=== PATIENT | female | born 1990 | race Caucasian/White ===

== ENCOUNTER → 2016-08-15 | Outpatient (CLI) | payer SELFPAY ==
[~2016-08-15] MED LIST: FLUO40CA8 PO
[2016-08-15 16:32] LABS: URINE APPEARANCE CLEAR (CLEAR); URINE BILIRUBIN NEG (NEG); URINE COLOR YELLOW; URINE NITRITE NEG (NEG); URINE PH 5.5 (4.5-7.5); URINE SPECIFIC GRAVITY 1.023 (1.000-1.030); UROBILINOGEN NEG (NEG)
[2016-08-15 16:46] LABS: MANUAL MICROSCOPIC REQUIRED? NO; REVIEW REQ? NO
== END | disposition home or self-care (01) ==
LOC: C.LABSPEC 15:53
PROVIDERS: ATTEND Obstetrics & Gynecology
DX: O09.299 Supervision of pregnancy with other poor reproductive or obstetric history, unspecified trimester (principal); Z3A.00 Weeks of gestation of pregnancy not specified

== ENCOUNTER → 2016-08-17 | Outpatient (CLI) | payer OTHER | END | disposition home or self-care (01) | LOC: C.PAPS 13:42 | PROVIDERS: ATTEND Obstetrics & Gynecology | DX: Z12.4 Encounter for screening for malignant neoplasm of cervix (principal); R87.610 Atypical squamous cells of undetermined significance on cytologic smear of cervix (ASC-US) ==

== ENCOUNTER → 2016-08-17 | Outpatient (CLI) | payer OTHER ==
[2016-08-17 12:04] LABS: BASO % 0.2 %; BASO ABS # 0.02 K/uL (0-0.2); COMPLETE YES; EOS % 0.5 %; HEMATOCRIT 43.1 % (37-47); IG% 0.3 %; LYMPH % 18.5 %; LYMPH ABS # 2.03 K/uL (1.2-3.4); MEAN CELL VOLUME 86.9 fL (80-100); MEAN CORPUSCULAR HEMOGLOBIN 28.8 pg (25-34); MEAN CORPUSCULAR HGB CONC 33.2 g/dl (32-36); MEAN PLATELET VOLUME 9.8 fL (7.4-10.4); MONO % 6.7 %; NEUT % 73.8 %; PLATELET COUNT 318 K/uL (130-400); RED BLOOD COUNT 4.96 M/uL (4.2-5.4); WHITE BLOOD COUNT 10.99 K/uL (4.8-10.8)
[2016-08-20 06:59] LABS: CHLAMYDIA TRACH RNA*** DETECTED (NOT DETECTED); GC (NEIS GONORRHOEAE)RNA** NOT DETECTED (NOT DETECTED)
== END | disposition home or self-care (01) ==
LOC: C.LAB1850 10:24
PROVIDERS: ATTEND Obstetrics & Gynecology
DX: Z34.90 Encounter for supervision of normal pregnancy, unspecified, unspecified trimester (principal)

== ENCOUNTER → 2016-10-26 | Outpatient (CLI) | payer OTHER ==
[2016-10-26 13:09] LABS: GTGD 50 Grams
== END | disposition home or self-care (01) ==
LOC: C.LAB1850 09:42
PROVIDERS: ATTEND Obstetrics & Gynecology
DX: Z34.02 Encounter for supervision of normal first pregnancy, second trimester (principal)

== ENCOUNTER → 2016-10-26 | Outpatient (CLI) | payer OTHER ==
[2016-10-29 08:03] LABS: CHLAMYDIA TRACH RNA*** NOT DETECTED (NOT DETECTED); GC (NEIS GONORRHOEAE)RNA** NOT DETECTED (NOT DETECTED)
== END | disposition home or self-care (01) ==
LOC: C.LABSPEC 10:59
PROVIDERS: ATTEND Obstetrics & Gynecology
DX: O98.819 Other maternal infectious and parasitic diseases complicating pregnancy, unspecified trimester (principal); Z3A.00 Weeks of gestation of pregnancy not specified

== ENCOUNTER 2016-12-09 01:05 | Emergency (ER) | payer OTHER ==
[~2016-12-09] VITALS: Ht 162.6 cm; Wt 103.5 kg
[2016-12-09 01:19] VITALS: Ht 162.6 cm; Wt 103.5 kg
[2016-12-09] MEDS ORDERED: SODIUM CHLORIDE 0.9% 1000ML 1,000 ML IV STA (01:40)
[2016-12-09] MEDS ORDERED: PRENTAB26 PO (01:54)
[2016-12-09 02:05] LABS: BASO % 0.2 %; BASO ABS # 0.02 K/uL (0-0.2); COMPLETE YES; EOS % 0.6 %; HEMATOCRIT 32.6 % (37-47); IG% 0.5 %; LYMPH % 19.4 %; LYMPH ABS # 2.47 K/uL (1.2-3.4); MEAN CELL VOLUME 85.6 fL (80-100); MEAN CORPUSCULAR HEMOGLOBIN 29.1 pg (25-34); MEAN PLATELET VOLUME 9.2 fL (7.4-10.4); MONO % 6.5 %; NEUT % 72.8 %; PLATELET COUNT 261 K/uL (130-400); RED BLOOD COUNT 3.81 M/uL (4.2-5.4); WHITE BLOOD COUNT 12.71 K/uL (4.8-10.8)
[2016-12-09] MEDS ORDERED: ONDANSETRON INJ 2 MG/ML 2 ML VIAL IV STA (02:26)
[2016-12-09] MEDS ORDERED: ACETAMINOPHEN IV 100 ML IV STA (02:26)
[2016-12-09 02:29] LABS: ALB/GLOB RATIO 0.7 (0.9-2); ALKALINE PHOSPHATASE 91 U/L (45-117); ALT/SGPT 24 U/L (12-78); AST/SGOT 22 U/L (15-37); BLOOD UREA NITROGEN 7 mg/dl (7-18); BUN/CREATININE RATIO 12.8 (10-20); CALCIUM 9.1 mg/dl (8.5-10.1); CARBON DIOXIDE 22 mmol/L (21-32); CHLORIDE 107 mmol/L (98-107); CREATININE 0.53 mg/dl (0.60-1.20); GLUCOSE 89 mg/dl (70-99); POTASSIUM 3.8 mmol/L (3.5-5.1); SODIUM 139 mmol/L (136-145)
--- NOTE | 2016-12-09 04:00 | EMERGENCY ROOM VISIT NOTE ---
History First contact with patient: :31 Chief Complaint: ABDOMINAL PAIN Stated Complaint: 23 WKS PREG,L/D SAID RUN THRU ER, ABD PAIN Nursing Triage Summary: pt c/o abd pain started at midnight, pain comes and goes, pt had previous miscarraige at 10 weeks. pt is 23 weeks now. spoke with L&D and was told Dr London wanted her to be seen in the ER first History of Present Illness The patient is a 26 year old female who presents to the Emergency Room with complaints of left-sided abdominal pain that woke her up around midnight. She states the pain has been a constant dull ache, with intermittent sharp crampy pains that come and go, nothing makes them better or worse, 08/27. She did not take anything for the pain. Patient reports she is 23 weeks , and has had an uncomplicated so far. She does report a history of a miscarriage at 10 weeks in the past. She is . She denies any fevers, chills, chest pain, shortness of breath, dizziness or passing out, diarrhea or constipation, urinary symptoms, vaginal bleeding or unusual discharge. Review of Systems A complete 10 point review of systems was reviewed with the patient with pertinent positives and negatives as per history of present illness. All else were negative. Past Medical/Surgical History Medical Problems: (1) ASTHMA, UNSPECIFIED (2) BIPOLAR DISORDER, UNSPECIFIED (3) Diverticulosis of colon without diverticulitis (4) ESOPHAGEAL REFLUX (5) HYPERTENSION NOS (6) Polycystic ovarian syndrome (7) POLYCYSTIC OVARIES (8) TOBACCO USE DISORDER (9) Tonsillectomy Surgical Problems: (1) History of tonsillectomy and adenoidectomy (2) History of wisdom tooth extraction Family History FH: heart disease Hypertension Seizures Social History Smoking Status: Never Smoker Alcohol Use: occasionally Marital Status: Occupation Status: employed Current/Historical Medications Scheduled Multivit/Min/Iron/Fol Ac/Pren ( Vitamin), 1 TAB PO DAILY Physical Exam Vital Signs Date Time Temp Pulse Resp B/P (MAP) Pulse Ox O2 Delivery O2 Flow Rate FiO2 12/09/16 04:03 36.6 95 18 110/59 98 12/09/16 04:02 95 18 110/59 98 Room Air 12/09/16 03:04 98 18 119/68 98 Room Air 12/09/16 01:59 Room Air 12/09/16 01:19 36.6 114 20 139/87 99 Room Air Physical Exam CONSTITUTIONAL: No acute distress. Well appearing and well nourished. Alert and oriented X 4 with normal affect. HEENT: Normocephalic, atraumatic. Pupils equal, round and reactive to light, EOMI. TMs normal. Pharynx normal. NECK: Supple, full active range of motion without discomfort. RESPIRATORY: Clear to auscultation bilaterally with no wheezing, crackles, rhonchi or stridor. Equal expansion bilaterally. CARDIOVASCULAR: Regular rate and rhythm with no murmurs, rubs or gallops. Normal peripheral perfusion. No edema. GASTROINTESTINAL: Mild tenderness in the suprapubic and left lower quadrant region to palpation, the abdomen is otherwise soft, nontender, nondistended. No CVA tenderness. Gravid abdomen. Bowel sounds present in all quadrants. MUSCULOSKELETAL: Full range of motion of all joints without discomfort. INTEGUMENTARY: No rash or other significant dermatologic conditions noted. NEUROLOGIC: Cranial nerves II-XII grossly intact. No focal neurologic deficits noted. Medical Decision & Procedures ER Provider Diagnostic Interpretation: LIMITED (US) CLINICAL HISTORY: Left-sided abdominal pain. . COMPARISON STUDY: 11/20/2016 FINDINGS: A single live fetus in variable presentation was identified. The heart rate is 157. The amniotic fluid was 12.7 cm. The femur measured 38 mm. The BPD measured 59 mm. These measurements correspond to an estimated postmenstrual age of 23 weeks and 0 days. Neither ovary was visualized. No maternal adnexal masses were delineated. There is a stable focal placental lobulation, unchanged from the preceding study. IMPRESSION: 1. Single live intrauterine fetus in their presentation 2. Stable focal placental lobulation 3. Neither maternal ovary was visualized. Laboratory Results 12/09/16 01:52 Red Blood Count 3.81, Mean Corpuscular Volume 85.6, Mean Corpuscular Hemoglobin 29.1, Mean Corpuscular Hemoglobin Concent 34.0, Mean Platelet Volume 9.2, Neutrophils (%) (Auto) 72.8, Lymphocytes (%) (Auto) 19.4, Monocytes (%) (Auto) 6.5, Eosinophils (%) (Auto) 0.6, Basophils (%) (Auto) 0.2, Neutrophils # (Auto) 9.27, Lymphocytes # (Auto) 2.47, Monocytes # (Auto) 0.82, Eosinophils # (Auto) 0.07, Basophils # (Auto) 0.02 12/09/16 01:52 Test 12/09/16 01:52 12/09/16 02:01 White Blood Count 12.71 K/uL (4.8-10.8) Red Blood Count 3.81 M/uL (4.2-5.4) Hemoglobin 11.1 g/dL (12.0-16.0) Hematocrit 32.6 % (37-47) Mean Corpuscular Volume 85.6 fL (80-100) Mean Corpuscular Hemoglobin 29.1 pg (25-34) Mean Corpuscular Hemoglobin Concent 34.0 g/dl (32-36) Platelet Count 261 K/uL (130-400) Mean Platelet Volume 9.2 fL (7.4-10.4) Neutrophils (%) (Auto) 72.8 % Lymphocytes (%) (Auto) 19.4 % Monocytes (%) (Auto) 6.5 % Eosinophils (%) (Auto) 0.6 % Basophils (%) (Auto) 0.2 % Neutrophils # (Auto) 9.27 K/uL (1.4-6.5) Lymphocytes # (Auto) 2.47 K/uL (1.2-3.4) Monocytes # (Auto) 0.82 K/uL (0.11-0.59) Eosinophils # (Auto) 0.07 K/uL (0-0.5) Basophils # (Auto) 0.02 K/uL (0-0.2) RDW Standard Deviation 41.6 fL (36.4-46.3) RDW Coefficient of Variation 13.5 % (11.5-14.5) Immature Granulocyte % (Auto) 0.5 % Immature Granulocyte # (Auto) 0.06 K/uL (0.00-0.02) Anion Gap 10.0 mmol/L (3-11) Est Creatinine Clear Calc Drug Dose 190.2 ml/min Estimated GFR () > 150.0 Estimated GFR (Non- 132.0 BUN/Creatinine Ratio 12.8 (10-20) Calcium Level 9.1 mg/dl (8.5-10.1) Total Bilirubin 0.1 mg/dl (0.2-1) Aspartate Amino Transf (AST/SGOT) 22 U/L (15-37) Alanine Aminotransferase (ALT/SGPT) 24 U/L (12-78) Alkaline Phosphatase 91 U/L (45-117) Total Protein 7.2 gm/dl (6.4-8.2) Albumin 2.9 gm/dl (3.4-5.0) Globulin 4.3 gm/dl (2.5-4.0) Albumin/Globulin Ratio 0.7 (0.9-2) Chemistry Specimen Hemolysis Urine Color YELLOW Urine Appearance CLOUDY (CLEAR) Urine pH 5.5 (4.5-7.5) Urine Specific [place] 1.022 (1.000-1.030) Urine Protein NEG (NEG) Urine Glucose (UA) NEG (NEG) Urine Ketones NEG (NEG) Urine Occult Blood 3+ (NEG) Urine Nitrite NEG (NEG) Urine Bilirubin NEG (NEG) Urine Urobilinogen NEG (NEG) Urine Leukocyte Esterase NEG (NEG) Urine WBC (Auto) 1-5 /hpf (0-5) Urine RBC (Auto) 10-30 /hpf (0-4) Urine Hyaline Casts (Auto) 1-5 /lpf (0-5) Urine Epithelial Cells (Auto) >30 /lpf (0-5) Urine Bacteria (Auto) 2+ (NEG) Urine Crystals CALCIUM OXALATE (NONE Date/Time Source Procedure Growth Status 12/09/16 02:01 Urine , Clean Catch Urine Culture - Final MORE THAN THREE TYPES OF ORGANISMS DE... Complete Medications Administered Medications (Trade) Dose Ordered Sig/Davon Route Start Time Stop Time Status Last Admin Dose Admin Sodium Chloride 1,000 ml @ 999 mls/hr Q1H1M STAT IV 12/09/16 01:40 12/09/16 02:40 DC 12/09/16 01:55 999 MLS/HR Acetaminophen 100 ml @ 400 mls/hr NOW STAT IV 12/09/16 02:26 12/09/16 02:40 DC 12/09/16 02:40 400 MLS/HR Ondansetron HCl (Zofran Inj) 4 mg NOW STAT IV 12/09/16 02:26 12/09/16 02:27 DC 12/09/16 02:40 4 MG Medical Decision CC: Patient presenting with complaint of abdominal pain in Interpretation of Labs: Mild leukocytosis, mild anemia, no significant loculated abnormality, normal renal function, normal liver enzymes and lipase, UA shows RBCs and some bacteria without any other signs of infection, culture pending. Differential Diagnosis: Includes, but not limited to have musculoskeletal pain, ligament pain in , [place] contractions, dehydration, preeclampsia, premature labor, ovarian cyst, ovarian torsion, placenta previa/ abruption, among others. Medication Reconciliation: I attest that I have personally reviewed the patient' s current medication list. Vital signs review: I reviewed the patient's vital signs and interpret them as follows: T: Afebrile; BP: Hypertensive; HR: Tachycardic; RR: Within normal limits; Pulse Ox: Within normal limits on room air. Blood pressure screening: The patient was found to have an elevated blood pressure and was felt to be situational, as this resolved on multiple rechecks. Summary: Patient was evaluated at bedside, history of physical exam performed. Patient is alert and in no acute distress, resting comfortably in the stretcher. She does have some mild tenderness in the suprapubic and left lower quadrant region of the abdomen, the abdomen is otherwise soft and nontender. No CVA tenderness. She denies any vaginal bleeding or urinary symptoms. Orders were placed at bedside for labs, UA and culture, IV fluids for hydration , IV Tylenol for pain, IV Zofran for nausea, pelvic ultrasound to evaluate . Patient discussed with Dr. Joe, who agrees with my assessment and plan. Patient reassessed multiple times throughout ED stay, she reports that her pain has improved definitely, but is still present at times. Labs reviewed as above, no significant abnormalities. Ultrasound reviewed, heart rate within normal limits, no acute abnormalities found. I discussed the patient with Dr. Sierra, OB, who agrees to bring the patient up to L&D for further evaluation. Patient was discharged from the emergency department to be taken up to the L&D floor for further monitoring and evaluation. Impression Primary Impression: Abdominal pain, left lower quadrant Additional Impression: and not yet delivered in second trimester Departure Information Dispostion Home / Self-Care Condition GOOD Referrals Barbara Taylor, C.R.N.P. (PCP) Patient Instructions My [facility] Additional Instructions You are being discharged from the emergency department and will be taken up to labor and delivery for further evaluation and monitoring of your . Problem Qualifiers
[2016-12-09 04:03] VITALS: BP 110/59; PULSE 95; TEMP 36.6; O2SAT 98
[2016-12-09 04:30] LABS: URINE APPEARANCE CLOUDY (CLEAR); URINE BILIRUBIN NEG (NEG); URINE COLOR YELLOW; URINE EPITHELIAL CELL AUTO >30 /lpf (0-5); URINE NITRITE NEG (NEG); URINE PH 5.5 (4.5-7.5); URINE SPECIFIC GRAVITY 1.022 (1.000-1.030); UROBILINOGEN NEG (NEG)
[2016-12-09 04:53] LABS: MANUAL MICROSCOPIC REQUIRED? NO; REVIEW REQ? YES
--- NOTE | 2016-12-09 07:52 | DIAGNOSTIC IMAGING REPORT ---
LIMITED (US) CLINICAL HISTORY: Left-sided abdominal pain. . COMPARISON STUDY: 11/20/2016 FINDINGS: A single live fetus in variable presentation was identified. The heart rate is 157. The amniotic fluid was 12.7 cm. The femur measured 38 mm. The BPD measured 59 mm. These measurements correspond to an estimated postmenstrual age of 23 weeks and 0 days. Neither ovary was visualized. No maternal adnexal masses were delineated. There is a stable focal placental lobulation, unchanged from the preceding study. IMPRESSION: 1. Single live intrauterine fetus in their presentation 2. Stable focal placental lobulation 3. Neither maternal ovary was visualized. Electronically signed by: Jamin Martin M.D. 12/09/2016 7:51 AM Dictated Date/Time: 12/09/2016 7:48 AM
== END 2016-12-09 04:04 | disposition home or self-care (01) ==
LOC: C.EDB 01:06 → C.EDA 04:04
DX: O26.892 Other specified pregnancy related conditions, second trimester (principal); R10.32 Left lower quadrant pain; Z3A.23 23 weeks gestation of pregnancy; O99.512 Diseases of the respiratory system complicating pregnancy, second trimester; J45.909 Unspecified asthma, uncomplicated; O99.342 Other mental disorders complicating pregnancy, second trimester; F31.9 Bipolar disorder, unspecified; O99.612 Diseases of the digestive system complicating pregnancy, second trimester; K21.9 Gastro-esophageal reflux disease without esophagitis; O10.012 Pre-existing essential hypertension complicating pregnancy, second trimester; O99.282 Endocrine, nutritional and metabolic diseases complicating pregnancy, second trimester; E28.2 Polycystic ovarian syndrome; Z82.49 Family history of ischemic heart disease and other diseases of the circulatory system

== ENCOUNTER 2017-01-12 23:45 | Outpatient (CLI) | payer OTHER ==
[~2017-01-12] VITALS: Ht 165.1 cm; Wt 105.0 kg
[~2017-01-12 23:45] MED LIST changes: -FLUO40CA8 PO; +PRENTAB26 PO
[2017-01-13 01:25] VITALS: Ht 165.1 cm; Wt 105.0 kg
== END 2017-01-13 00:45 | disposition home or self-care (01) ==
LOC: C.LD 23:45 → C.OPB 23:45
PROVIDERS: ATTEND Obstetrics & Gynecology
DX: O46.93 Antepartum hemorrhage, unspecified, third trimester (principal); Z3A.28 28 weeks gestation of pregnancy

== ENCOUNTER → 2017-01-15 | Outpatient (CLI) | payer OTHER ==
[2017-01-15 11:14] LABS: URINE APPEARANCE CLOUDY (CLEAR); URINE BILIRUBIN NEG (NEG); URINE COLOR DK YELLOW; URINE EPITHELIAL CELL AUTO >30 /lpf (0-5); URINE NITRITE NEG (NEG); URINE PH 6.5 (4.5-7.5); URINE SPECIFIC GRAVITY 1.018 (1.000-1.030); UROBILINOGEN NEG (NEG)
[2017-01-15 11:15] LABS: MANUAL MICROSCOPIC REQUIRED? NO; REVIEW REQ? YES
[2017-01-15 12:21] LABS: HEMATOCRIT 31.5 % (37-47)
[2017-01-15 13:32] LABS: GTGD 50 Grams
== END | disposition home or self-care (01) ==
LOC: C.LAB1850 10:06
PROVIDERS: ATTEND Obstetrics & Gynecology
DX: Z34.02 Encounter for supervision of normal first pregnancy, second trimester (principal)

== ENCOUNTER → 2017-01-29 | Outpatient (CLI) | payer OTHER | END | disposition home or self-care (01) | LOC: C.LAB1850 10:34 | PROVIDERS: ATTEND Obstetrics & Gynecology | DX: O28.1 Abnormal biochemical finding on antenatal screening of mother (principal) ==

== ENCOUNTER 2017-02-12 12:04 | Outpatient (CLI) | payer OTHER ==
[2017-02-12] MEDS ORDERED: LACTATED RINGER'S 1000ML 500 ML IV ONE (12:35)
[2017-02-12] MEDS ORDERED: LACTATED RINGER'S 1000ML 1,000 ML IV SCH (12:35)
[2017-02-12] MEDS ORDERED: BETAMETH SOD PHOS/ACETATE IA 6 MG/ML IM ONE (12:45)
--- NOTE | 2017-02-12 13:11 | HISTORY & PHYSICAL EXAMINATION ---
DATE OF ADMISSION: 02/12/2017 ADMISSION AND TRANSFER NOTE DATE OF PRESENTATION AND DATE OF TRANSFER: 02/12/2017. ADMITTING DIAGNOSES: 1. Complicated at 32+ weeks' gestational age. 2. premature rupture of membranes. ADMISSION HISTORY: The patient is a 27-year-old 2, para 0 with an EDC of 07 April by dates and first trimester ultrasound who presented to labor and delivery at 32+ weeks gestational age with spontaneous rupture of membranes. The patient had been seen in the office earlier today for routine OB visit which was unremarkable. After the visit, the patient went out for breakfast and then began leaking copious amount of clear fluid. The patient denied contractions or vaginal bleeding and presented to labor and delivery for evaluation. The patient has had course remarkable for a positive chlamydia culture at her initial visit. The patient was treated successfully and had a repeat culture, which was negative. The patient had laboratory values showing an elevated 1-hour Glucola at 28 weeks, her 3-hour glucose tolerance test was within normal limits. Remainder of laboratory values for the show a blood type of A positive, antibody negative, rubella immune, hepatitis B negative. She had GBS bacteria at her first visit. She declined first trimester cell free DNA screening and she declined a quad screen. PAST MEDICAL HISTORY: OBSTETRICAL: As above. BREWMASTER: As above. MEDICAL: Depression. SURGICAL: Tubular adenoma with a colonoscopy. ALLERGIES: SERTRALINE. REVIEW OF SYSTEMS: As per HPI. PHYSICAL EXAMINATION: GENERAL: Shows a gravid female, in no acute distress. VITAL SIGNS: Show a blood pressure of 112/78 and weight of 233 pounds. HEENT EXAMINATION: Unremarkable. NECK: Supple. LUNGS: Clear. HEART: With a regular rhythm and rate. ABDOMEN: Gravid, vertex, positive heart tones. No palpable contractions. Estimated weight of 4 pounds. PELVIC: Shows normal external genitalia. Vaginal vault is pink and rugated. There is gross rupture of fluid with pooling of fluid in the posterior fornix. Bimanual examination shows the cervix to be 1 cm dilated, 50% effaced, and minus 2 station. EXTREMITIES: Shows no deep calf tenderness. NEUROLOGIC: Grossly intact. IMPRESSION: A 27-year-old 2, para 0, 32+ weeks gestational age, premature rupture of membranes. PLAN: heart rate tracing is category 1 showing uterine irritability. Case discussed with Dr. Swapna Beltrán at the [facility] in [place]. Dr. Beltrán agrees to accept the patient in transfer. Because of the risk of prematurity, the patient will receive Celestone 12 mg IM. With premature rupture of membranes, she will also be started on ampicillin 2 grams IV q. 6 hours as well as erythromycin 500 mg IV q. 6 hours. The risks, benefits and alternatives to the transport have been discussed. While the benefits will be transfer to a level 3 nursery, the risks are being involved in a motor vehicle accident. Permit has been signed for transfer and the patient wishes to proceed.
[2017-02-12] MEDS ORDERED: ERYTHROMYCIN IV 500 MG in SODIUM CHLORIDE 0.9% 250ML 250 ML IV SCH (14:00)
[2017-02-12] MEDS ORDERED: AMPICILLIN IV 2,000 MG in SODIUM CHLOR 0.9% AD-VAN 100ML 100 ML IV SCH (14:00)
== END 2017-02-12 14:12 | disposition short-term general hospital (02) ==
LOC: C.OPB 12:04 → C.LD 12:05 → C.OPB 14:12
PROVIDERS: ATTEND Obstetrics & Gynecology
DX: O60.03 Preterm labor without delivery, third trimester (principal); Z3A.32 32 weeks gestation of pregnancy

== ENCOUNTER 2017-03-30 19:12 | Emergency (ER) | payer OTHER ==
[~2017-03-30] VITALS: Ht 165.1 cm; Wt 96.9 kg
[2017-03-30 19:18] VITALS: TEMP 36.8; Ht 165.1 cm; Wt 96.9 kg
[2017-03-30] MEDS ORDERED: SODIUM CHLORIDE 0.9% 1000ML 500 ML IV STA (19:29)
[2017-03-30] MEDS ORDERED: KETOROLAC TROMETHAMINE 30 MG/ML VIAL IV STA (19:29)
[2017-03-30] MEDS ORDERED: ACETAMINOPHEN 500 MG TAB PO STA (19:29)
[2017-03-30] MEDS ORDERED: IBUP-1451 PO (19:42)
[2017-03-30 19:55] LABS: BASO % 0.2 %; BASO ABS # 0.02 K/uL (0-0.2); EOS % 0.9 %; EOS ABS # 0.08 K/uL (0-0.5); HEMATOCRIT 37.9 % (37-47); HEMOGLOBIN 12.9 g/dL (12.0-16.0); IG# 0.02 K/uL (0.00-0.02); LYMPH % 31.1 %; LYMPH ABS # 2.89 K/uL (1.2-3.4); MEAN CELL VOLUME 84.6 fL (80-100); MEAN CORPUSCULAR HEMOGLOBIN 28.8 pg (25-34); MEAN PLATELET VOLUME 9.7 fL (7.4-10.4); MONO % 7.8 %; MONO ABS # 0.72 K/uL (0.11-0.59); NEUT % 59.8 %; NEUT ABS # 5.55 K/uL (1.4-6.5); PLATELET COUNT 262 K/uL (130-400); RED CELL DISTRIBUTION WIDTH CV 13.3 % (11.5-14.5); RED CELL DISTRIBUTION WIDTH SD 40.5 fL (36.4-46.3); WHITE BLOOD COUNT 9.28 K/uL (4.8-10.8)
[2017-03-30 20:05] LABS: INR 0.9 (0.9-1.1)
[2017-03-30 20:11] LABS: CALCIUM 8.8 mg/dl (8.5-10.1); CREATININE 0.69 mg/dl (0.60-1.20); POTASSIUM 3.6 mmol/L (3.5-5.1)
--- NOTE | 2017-03-30 20:42 | EMERGENCY ROOM VISIT NOTE ---
History Report prepared by Barb: Ferdinand Murphy Under the Supervision of: Dr. Art Maldonado M.D. First contact with patient: 19:24 Chief Complaint: ED VAG BLEEDING Stated Complaint: ABD PAIN,BLEEDING,LIGHT HEADED,7 WEEKS History of Present Illness The patient is a 27 year old female who presents to the Emergency Room with complaints of intermittent vaginal bleeding that started a week ago. She rates her pain as a 5/10 in severity. The patient states that she had an 8 week early vaginal seven weeks ago. She states that this was her second , but states that she previously had a miscarriage. She reports that there were no complications or hospitalizations following her . The patient states that she continued to vaginally bleed for three weeks following the delivery. She reports that her bleeding ceased until about a week ago when the bleeding returned. The patient states that she has been bleeding in large amounts with multiple blood clots. She reports that she has also been experiencing abdominal cramping, chills, lightheadedness, shortness of breath, and back pain. She reports that she took Motrin for her symptoms without any relief of discomfort. The patient states that the bleeding continued throughout the week, which caused her to call her physician. She reports that her physician told her to report to the ED if the bleeding worsened. The patient states that the bleeding stopped yesterday, which caused her to believe she had her menstrual period. She reports that the bleeding returned today, which caused her to soak through a pad. She denies urinary symptoms, fever, vomiting, and loss of consciousness. The patient reports a history of polycystic ovary syndrome and endometriosis. Source of History: patient Onset: a week ago Position: other (vaginal area) Symptom Intensity: 5/10 Quality: other (contains blood clots) Timing: intermittent Modifying Factors (Relieving): other (Motrin) Associated Symptoms: + chills, + SOB, + abdominal pain, + back pain, No LOC , No fevers Review of Systems See HPI for pertinent positives & negatives. A total of 10 systems reviewed and were otherwise negative. Past Medical & Surgical Medical Problems: (1) 28 weeks gestation of (2) Abdominal pain (3) Abdominal pain (4) Acute pharyngitis (5) ASTHMA, UNSPECIFIED (6) Back ache (7) BIPOLAR DISORDER, UNSPECIFIED (8) C. difficile colitis (9) Colitis (10) Diarrhea (11) Diarrhea (12) Diarrhea (13) Diarrhea (14) Diarrhea (15) Diverticulosis of colon without diverticulitis (16) ESOPHAGEAL REFLUX (17) Fall (18) First trimester (19) Foot sprain (20) HYPERTENSION NOS (21) Knee contusion (22) Knee sprain (23) Polycystic ovarian syndrome (24) POLYCYSTIC OVARIES (25) premature rupture of membranes in third trimester (26) Third trimester bleeding, antepartum (27) TOBACCO USE DISORDER Surgical Problems: (1) History of tonsillectomy and adenoidectomy (2) History of wisdom tooth extraction (3) Tonsillectomy Family History FH: heart disease Hypertension Seizures Social History Smoking Status: Never Smoker Alcohol Use: occasionally Marital Status: Occupation Status: employed Current/Historical Medications Scheduled PRN Ibuprofen Tab (Motrin), 800 MG PO Q8H PRN for Pain Allergies Coded Allergies: Sertraline (Verified Allergy, Mild, hives, 12/09/16) Physical Exam Vital Signs Date Time Temp Pulse Resp B/P (MAP) Pulse Ox O2 Delivery O2 Flow Rate FiO2 03/30/17 22:16 80 18 127/88 100 03/30/17 21:02 61 18 134/74 100 Room Air 03/30/17 19:18 36.8 80 18 120/81 99 Room Air Physical Exam GENERAL: Patient is in no acute distress. HEENT: No acute trauma, normocephalic atraumatic, mucous membranes moist, no nasal congestion, no scleral icterus. NECK: No stridor, no adenopathy, no meningismus, trachea is midline. LUNGS: Clear to auscultation bilaterally, no wheeze, no rhonchi, breath sounds equal. HEART: Without murmurs gallops or rubs, regular rate and rhythm. ABDOMEN: Soft, mildly tender to the lower pelvis bilaterally, bowel sounds positive, no hernias, no peritonitis. EXTREMITIES: No cyanosis or edema, full range of motion of all the joints without pain or difficulty, no signs for acute trauma. NEUROLOGIC: Oriented x 3, no acute motor or sensory deficits, no focal weakness. SKIN: No rash, no jaundice, no diaphoresis. Medical Decision & Procedures ER Provider Diagnostic Interpretation: Radiology results as stated below per my review and radiologist interpretation: PELVIC COMPLETE NON OB, TRANSVAG-FEMALE PELVIS CLINICAL HISTORY: 27 years-old Female presenting with EVALUATE OB-SHIP HARBOR PILOT/VAGINAL BLEEDING--deliv 7 weeks ago. TECHNIQUE: Real-time grayscale and color and spectral Doppler ultrasound imaging of the pelvis was performed first using a transabdominal probe and subsequently transvaginal for better characterization. COMPARISON: 12/09/2016. FINDINGS: Uterus: Globular enlarged appearance consistent with state. Relative hyperemia also expected changes Anteverted. The uterus measures 10.5 x 4.6 x 8.2 cm. Endometrial stripe measures 5 mm in thickness. Endometrium normal-appearing without focal vascular nodule to suggest retained products of conception. Cervix contains trace endocervical fluid. Nabothian cysts noted. Right adnexa: Right ovary normal. Right ovary measures 3.0 x 1.5 x 1.7 cm. Normal color Doppler flow and arterial and venous waveforms within the ovarian parenchyma. Left adnexa: Left ovary normal. Left ovary measures 1.5 x 2.5 x 0.9 cm. Normal color Doppler flow and arterial and venous waveforms within the ovarian parenchyma. Other: No free fluid. IMPRESSION: 1. Expected appearance of the uterus. No convincing evidence of retained products of conception. 2. Normal ovaries. Electronically signed by: Sage Smith M.D. 03/30/2017 9:50 PM Dictated Date/Time: 03/30/2017 9:47 PM PELVIC COMPLETE NON OB, TRANSVAG-FEMALE PELVIS CLINICAL HISTORY: 27 years-old Female presenting with EVALUATE OB-SHIP HARBOR PILOT/VAGINAL BLEEDING--deliv 7 weeks ago. TECHNIQUE: Real-time grayscale and color and spectral Doppler ultrasound imaging of the pelvis was performed first using a transabdominal probe and subsequently transvaginal for better characterization. COMPARISON: 12/09/2016. FINDINGS: Uterus: Globular enlarged appearance consistent with state. Relative hyperemia also expected changes Anteverted. The uterus measures 10.5 x 4.6 x 8.2 cm. Endometrial stripe measures 5 mm in thickness. Endometrium normal-appearing without focal vascular nodule to suggest retained products of conception. Cervix contains trace endocervical fluid. Nabothian cysts noted. Right adnexa: Right ovary normal. Right ovary measures 3.0 x 1.5 x 1.7 cm. Normal color Doppler flow and arterial and venous waveforms within the ovarian parenchyma. Left adnexa: Left ovary normal. Left ovary measures 1.5 x 2.5 x 0.9 cm. Normal color Doppler flow and arterial and venous waveforms within the ovarian parenchyma. Other: No free fluid. IMPRESSION: 1. Expected appearance of the uterus. No convincing evidence of retained products of conception. 2. Normal ovaries. Electronically signed by: Sage Smith M.D. 03/30/2017 9:50 PM Dictated Date/Time: 03/30/2017 9:47 PM Laboratory Results 03/30/17 19:41 Red Blood Count 4.48, Mean Corpuscular Volume 84.6, Mean Corpuscular Hemoglobin 28.8, Mean Corpuscular Hemoglobin Concent 34.0, Mean Platelet Volume 9.7, Neutrophils (%) (Auto) 59.8, Lymphocytes (%) (Auto) 31.1, Monocytes (%) (Auto) 7.8, Eosinophils (%) (Auto) 0.9, Basophils (%) (Auto) 0.2, Neutrophils # (Auto) 5.55, Lymphocytes # (Auto) 2.89, Monocytes # (Auto) 0.72, Eosinophils # (Auto) 0.08, Basophils # (Auto) 0.02 03/30/17 19:41 Test 03/30/17 19:41 03/30/17 19:45 White Blood Count 9.28 K/uL (4.8-10.8) Red Blood Count 4.48 M/uL (4.2-5.4) Hemoglobin 12.9 g/dL (12.0-16.0) Hematocrit 37.9 % (37-47) Mean Corpuscular Volume 84.6 fL (80-100) Mean Corpuscular Hemoglobin 28.8 pg (25-34) Mean Corpuscular Hemoglobin Concent 34.0 g/dl (32-36) Platelet Count 262 K/uL (130-400) Mean Platelet Volume 9.7 fL (7.4-10.4) Neutrophils (%) (Auto) 59.8 % Lymphocytes (%) (Auto) 31.1 % Monocytes (%) (Auto) 7.8 % Eosinophils (%) (Auto) 0.9 % Basophils (%) (Auto) 0.2 % Neutrophils # (Auto) 5.55 K/uL (1.4-6.5) Lymphocytes # (Auto) 2.89 K/uL (1.2-3.4) Monocytes # (Auto) 0.72 K/uL (0.11-0.59) Eosinophils # (Auto) 0.08 K/uL (0-0.5) Basophils # (Auto) 0.02 K/uL (0-0.2) RDW Standard Deviation 40.5 fL (36.4-46.3) RDW Coefficient of Variation 13.3 % (11.5-14.5) Immature Granulocyte % (Auto) 0.2 % Immature Granulocyte # (Auto) 0.02 K/uL (0.00-0.02) Prothrombin Time 9.8 SECONDS (9.0-12.0) Prothromb Time International Ratio 0.9 (0.9-1.1) Activated Partial Thromboplast Time 23.0 SECONDS (21.0-31.0) Partial Thromboplastin Ratio 0.9 Anion Gap 6.0 mmol/L (3-11) Est Creatinine Clear Calc Drug Dose 142.3 ml/min Estimated GFR () 139.2 Estimated GFR (Non- 120.1 BUN/Creatinine Ratio 12.9 (10-20) Calcium Level 8.8 mg/dl (8.5-10.1) Urine Color YELLOW Urine Appearance CLOUDY (CLEAR) Urine pH 6.5 (4.5-7.5) Urine Specific Mears 1.015 (1.000-1.030) Urine Protein NEG (NEG) Urine Glucose (UA) NEG (NEG) Urine Ketones NEG (NEG) Urine Occult Blood 3+ (NEG) Urine Nitrite NEG (NEG) Urine Bilirubin NEG (NEG) Urine Urobilinogen NEG (NEG) Urine Leukocyte Esterase TRACE (NEG) Urine WBC (Auto) 1-5 /hpf (0-5) Urine RBC (Auto) 5-10 /hpf (0-4) Urine Hyaline Casts (Auto) 1-5 /lpf (0-5) Urine Epithelial Cells (Auto) >30 /lpf (0-5) Urine Bacteria (Auto) 1+ (NEG) Urine Yeast (Auto) (NONE PRSENT) Laboratory results reviewed by me. Medications Administered Medications (Trade) Dose Ordered Sig/Davon Route Start Time Stop Time Status Last Admin Dose Admin Sodium Chloride 500 ml @ 999 mls/hr Q31M STAT IV 03/30/17 19:29 03/30/17 19:59 DC 03/30/17 19:29 999 MLS/HR Ketorolac Tromethamine (Toradol Inj) 30 mg NOW STAT IV 03/30/17 19:29 03/30/17 19:33 DC 03/30/17 19:43 30 MG Acetaminophen (Tylenol Tab) 1,000 mg NOW STAT PO 03/30/17 19:29 2 19:33 DC 03/30/17 19:42 1,000 MG ED Course 1924: The patient was evaluated in room B05. A complete history and physical exam was performed. 1928: Ordered Tylenol Tab 1000 mg PO, Toradol Injection 30 mg Iv, Sodium Chloride 500 ml @ 999 mls/hr IV. 2157: I discussed the patients case with Dr. Jade, [facility] DIRECTOR OF SLEEP. He reports that after looking at the patients case, the patient is able to go home. 2204: Reevaluated the patient. Discussed results and discharge instructions: She verbalized understanding and agreement. The patient is ready for discharge. Medical Decision The patient is a 27 year old female who presents to the Emergency Room with complaints of intermittent vaginal bleeding that started a week ago. Differential diagnoses considered include bleeding post delivery, endometritis, retained products of conception, ovarian cyst, anemia, electrolyte imbalance, and UTI. There is no leukocytosis or concerning anemia. No significant electrolyte abnormality or kidney failure. There is no coagulopathy. Urinalysis shows some blood consistent with her vaginal bleeding, no infection. Pelvic ultrasound shows no evidence for retained products of conception. No evidence for ovarian cyst. On exam, the patient was not febrile or toxic. Patient received IV saline, oral Tylenol and IV Toradol, she feels improved. I discussed the case with OB. The patient is being discharged. She can return for worsening symptoms. She should treat this as a menstrual cycle. Of note, I did not perform a pelvic exam. The patient did not want a pelvic exam and I did not think that this would add any huge benefit to her diagnosis. She was bleeding minimally while she was here in the ED. Medication Reconcilliation Current Medication List: was personally reviewed by me Blood Pressure Screening Patient's blood pressure: Normal blood pressure Consults Time Called: 2154 Consulting Physician: Dr. Jade, [facility] DIRECTOR OF SLEEP Returned Call: 2157 I discussed the patients case with Dr. Jade, [facility] DIRECTOR OF SLEEP. He reports that after looking at the patients case, the patient is able to go home. Impression Primary Impression: Vaginal bleeding Additional Impression: Normal spontaneous vaginal delivery Scribe Attestation The scribe's documentation has been prepared under my direction and personally reviewed by me in its entirety. I confirm that the note above accurately reflects all work, treatment, procedures, and medical decision making performed by me. Departure Information Dispostion Home / Self-Care Referrals Barbara Taylor, C.R.N.P. (PCP) Forms HOME CARE DOCUMENTATION FORM, IMPORTANT VISIT INFORMATION, WORK / SCHOOL INSTRUCTIONS Patient Instructions My [facility] Additional Instructions return for worsening bleeding or symptoms, return for fever lab testing and imaging was all ok treat this as a period for now follow with ob as an outpatient Problem Qualifiers
--- NOTE | 2017-03-30 21:51 | DIAGNOSTIC IMAGING REPORT ---
PELVIC COMPLETE NON OB, TRANSVAG-FEMALE PELVIS CLINICAL HISTORY: 27 years-old Female presenting with EVALUATE OB-BREAD JOCKEY/VAGINAL BLEEDING--deliv 7 weeks ago. TECHNIQUE: Real-time grayscale and color and spectral Doppler ultrasound imaging of the pelvis was performed first using a transabdominal probe and subsequently transvaginal for better characterization. COMPARISON: 12/09/2016. FINDINGS: Uterus: Globular enlarged appearance consistent with state. Relative hyperemia also expected changes Anteverted. The uterus measures 10.5 x 4.6 x 8.2 cm. Endometrial stripe measures 5 mm in thickness. Endometrium normal-appearing without focal vascular nodule to suggest retained products of conception. Cervix contains trace endocervical fluid. Nabothian cysts noted. Right adnexa: Right ovary normal. Right ovary measures 3.0 x 1.5 x 1.7 cm. Normal color Doppler flow and arterial and venous waveforms within the ovarian parenchyma. Left adnexa: Left ovary normal. Left ovary measures 1.5 x 2.5 x 0.9 cm. Normal color Doppler flow and arterial and venous waveforms within the ovarian parenchyma. Other: No free fluid. IMPRESSION: 1. Expected appearance of the uterus. No convincing evidence of retained products of conception. 2. Normal ovaries. Electronically signed by: Sage Smith M.D. 03/30/2017 9:50 PM Dictated Date/Time: 03/30/2017 9:47 PM
--- NOTE | 2017-03-30 21:51 | DIAGNOSTIC IMAGING REPORT ---
PELVIC COMPLETE NON OB, TRANSVAG-FEMALE PELVIS CLINICAL HISTORY: 27 years-old Female presenting with EVALUATE OB-TESTER SOUND/VAGINAL BLEEDING--deliv 7 weeks ago. TECHNIQUE: Real-time grayscale and color and spectral Doppler ultrasound imaging of the pelvis was performed first using a transabdominal probe and subsequently transvaginal for better characterization. COMPARISON: 12/09/2016. FINDINGS: Uterus: Globular enlarged appearance consistent with state. Relative hyperemia also expected changes Anteverted. The uterus measures 10.5 x 4.6 x 8.2 cm. Endometrial stripe measures 5 mm in thickness. Endometrium normal-appearing without focal vascular nodule to suggest retained products of conception. Cervix contains trace endocervical fluid. Nabothian cysts noted. Right adnexa: Right ovary normal. Right ovary measures 3.0 x 1.5 x 1.7 cm. Normal color Doppler flow and arterial and venous waveforms within the ovarian parenchyma. Left adnexa: Left ovary normal. Left ovary measures 1.5 x 2.5 x 0.9 cm. Normal color Doppler flow and arterial and venous waveforms within the ovarian parenchyma. Other: No free fluid. IMPRESSION: 1. Expected appearance of the uterus. No convincing evidence of retained products of conception. 2. Normal ovaries. Electronically signed by: Sage Smith M.D. 03/30/2017 9:50 PM Dictated Date/Time: 03/30/2017 9:47 PM
[2017-03-30 22:16] VITALS: BP 127/88; PULSE 80; O2SAT 100
== END 2017-03-30 22:18 | disposition home or self-care (01) ==
LOC: C.EDB 19:15
DX: N93.9 Abnormal uterine and vaginal bleeding, unspecified (principal); E28.2 Polycystic ovarian syndrome; J45.909 Unspecified asthma, uncomplicated; F31.9 Bipolar disorder, unspecified; K21.9 Gastro-esophageal reflux disease without esophagitis; I10 Essential (primary) hypertension; K52.9 Noninfective gastroenteritis and colitis, unspecified; K57.90 Diverticulosis of intestine, part unspecified, without perforation or abscess without bleeding; Z82.49 Family history of ischemic heart disease and other diseases of the circulatory system; Z88.8 Allergy status to other drugs, medicaments and biological substances

== ENCOUNTER 2017-06-19 10:40 | Emergency (ER) | payer OTHER ==
[~2017-06-19] VITALS: Ht 165.1 cm; Wt 100.9 kg
[~2017-06-19 10:40] MED LIST changes: +IBUP-1451 PO; -PRENTAB26 PO
[2017-06-19 10:45] VITALS: TEMP 36.7; Ht 165.1 cm; Wt 100.9 kg
--- NOTE | 2017-06-19 11:32 | EMERGENCY ROOM VISIT NOTE ---
History First contact with patient: 11:02 Chief Complaint: VAGINAL BLEEDING Stated Complaint: CRAMPING, BLEEDING, 6 WEEKS History of Present Illness The patient is a 27 year old female who presents to the Emergency Room with complaints of vaginal bleeding. The patient reports she believes he is currently approximately 6 weeks . She states that for the past 3 days, she has had brownish discharge as well as pelvic cramping. She states the discharge has been a small amount, and she has only noticed it when wiping. The cramping is throughout her lower abdomen and feels similar to menstrual cramps/contractions. She rates the discomfort as 7/10. She has had 2 previous pregnancies. She delivered her first child 4 months ago at 32 weeks. She had one prior miscarriage which did require a D&E. She sees Yun Banuelos FAILURE ANALYSIS ENGINEER. Her blood type is A+. She denies any bleeding or clotting disorders. She denies nausea/vomiting, urinary symptoms or fevers. She has taken Tylenol for her pain with little relief. Review of Systems A complete 10 point review of systems was reviewed with the patient with pertinent positives and negatives as per history of present illness. All else were negative. Past Medical/Surgical History Medical Problems: (1) 28 weeks gestation of (2) Abdominal pain (3) Abdominal pain (4) Acute pharyngitis (5) ASTHMA, UNSPECIFIED (6) Back ache (7) BIPOLAR DISORDER, UNSPECIFIED (8) C. difficile colitis (9) Colitis (10) Diarrhea (11) Diarrhea (12) Diarrhea (13) Diarrhea (14) Diarrhea (15) Diverticulosis of colon without diverticulitis (16) ESOPHAGEAL REFLUX (17) Fall (18) First trimester (19) Foot sprain (20) HYPERTENSION NOS (21) Knee contusion (22) Knee sprain (23) Polycystic ovarian syndrome (24) POLYCYSTIC OVARIES (25) premature rupture of membranes in third trimester (26) Third trimester bleeding, antepartum (27) TOBACCO USE DISORDER Surgical Problems: (1) History of tonsillectomy and adenoidectomy (2) History of wisdom tooth extraction (3) Tonsillectomy Family History FH: heart disease Hypertension Seizures Social History Smoking Status: Never Smoker Alcohol Use: occasionally Marital Status: Housing Status: lives with family Occupation Status: employed Current/Historical Medications No Active Prescriptions or Reported Meds Physical Exam Vital Signs Date Time Temp Pulse Resp B/P (MAP) Pulse Ox O2 Delivery O2 Flow Rate FiO2 06/19/17 13:32 88 18 111/70 98 Room Air 06/19/17 12:32 101 18 107/67 98 Room Air 06/19/17 10:45 36.7 101 20 140/83 99 Room Air Physical Exam VITALS: Vitals are noted on the nurse's note and reviewed by myself. Vital signs stable. GENERAL: This is a 27-year-old female, in no acute distress, nondiaphoretic, well-developed well-nourished. HEENT: PERRLA. Mucous membranes moist. Neck is supple without nuchal rigidity. HEART: Regular rate and rhythm without murmurs gallops or rubs. LUNGS: Clear to auscultation bilaterally without wheezes, rales or rhonchi. ABDOMEN: Positive bowel sounds x 4. Soft, nondistended. Mild tenderness in the suprapubic region. No guarding or rebound tenderness. PELVIC: There is a small amount of brownish discharge/blood within the vaginal vault. Cervical os appears closed. NEURO: Patient was alert and oriented to person place and time. Medical Decision & Procedures ER Provider Diagnostic Interpretation: LIMITED (US) FINDINGS: Uterus measures 11.6 cm. Endometrium measures 2.5 cm. No evidence for an intrauterine gestational sac. Right ovary measures 2.4 cm with normal vascular flow. The left ovary measures 2.9 cm with normal vascular flow. IMPRESSION: 1. No evidence for an intrauterine gestational sac. 2. Thickening of the endometrium and 2.5 cm possibly secondary to hormonal stimulation and or endometrial hyperplasia. Laboratory Results 06/19/17 11:31 Red Blood Count 4.67, Mean Corpuscular Volume 83.5, Mean Corpuscular Hemoglobin 28.1, Mean Corpuscular Hemoglobin Concent 33.6, Mean Platelet Volume 8.9, Neutrophils (%) (Auto) 61.2, Lymphocytes (%) (Auto) 29.4, Monocytes (%) (Auto) 7.3, Eosinophils (%) (Auto) 1.2, Basophils (%) (Auto) 0.6, Neutrophils # (Auto) 4.45, Lymphocytes # (Auto) 2.14, Monocytes # (Auto) 0.53, Eosinophils # (Auto) 0.09, Basophils # (Auto) 0.04 06/19/17 11:31 Test 06/19/17 11:31 White Blood Count 7.27 K/uL (4.8-10.8) Red Blood Count 4.67 M/uL (4.2-5.4) Hemoglobin 13.1 g/dL (12.0-16.0) Hematocrit 39.0 % (37-47) Mean Corpuscular Volume 83.5 fL (80-100) Mean Corpuscular Hemoglobin 28.1 pg (25-34) Mean Corpuscular Hemoglobin Concent 33.6 g/dl (32-36) Platelet Count 270 K/uL (130-400) Mean Platelet Volume 8.9 fL (7.4-10.4) Neutrophils (%) (Auto) 61.2 % Lymphocytes (%) (Auto) 29.4 % Monocytes (%) (Auto) 7.3 % Eosinophils (%) (Auto) 1.2 % Basophils (%) (Auto) 0.6 % Neutrophils # (Auto) 4.45 K/uL (1.4-6.5) Lymphocytes # (Auto) 2.14 K/uL (1.2-3.4) Monocytes # (Auto) 0.53 K/uL (0.11-0.59) Eosinophils # (Auto) 0.09 K/uL (0-0.5) Basophils # (Auto) 0.04 K/uL (0-0.2) RDW Standard Deviation 43.1 fL (36.4-46.3) RDW Coefficient of Variation 14.2 % (11.5-14.5) Immature Granulocyte % (Auto) 0.3 % Immature Granulocyte # (Auto) 0.02 K/uL (0.00-0.02) Prothrombin Time 10.2 SECONDS (9.0-12.0) Prothromb Time International Ratio 1.0 (0.9-1.1) Activated Partial Thromboplast Time 27.1 SECONDS (21.0-31.0) Partial Thromboplastin Ratio 1.0 Urine Color YELLOW Urine Appearance CLOUDY (CLEAR) Urine pH 6.0 (4.5-7.5) Urine Specific [place] 1.023 (1.000-1.030) Urine Protein NEG (NEG) Urine Glucose (UA) NEG (NEG) Urine Ketones NEG (NEG) Urine Occult Blood 3+ (NEG) Urine Nitrite NEG (NEG) Urine Bilirubin NEG (NEG) Urine Urobilinogen NEG (NEG) Urine Leukocyte Esterase MODERATE (NEG) Urine WBC (Auto) 10-30 /hpf (0-5) Urine RBC (Auto) 5-10 /hpf (0-4) Urine Hyaline Casts (Auto) 1-5 /lpf (0-5) Urine Epithelial Cells (Auto) >30 /lpf (0-5) Urine Bacteria (Auto) 2+ (NEG) Urine Pathogenic Casts /lpf (0) Urine Yeast (Auto) (NONE PRSENT) Anion Gap 6.0 mmol/L (3-11) Est Creatinine Clear Calc Drug Dose 137.5 ml/min Estimated GFR () 131.7 Estimated GFR (Non- 113.7 BUN/Creatinine Ratio 11.2 (10-20) Calcium Level 9.0 mg/dl (8.5-10.1) Total Bilirubin 0.7 mg/dl (0.2-1) Aspartate Amino Transf (AST/SGOT) 24 U/L (15-37) Alanine Aminotransferase (ALT/SGPT) 38 U/L (12-78) Alkaline Phosphatase 87 U/L (45-117) Total Protein 8.0 gm/dl (6.4-8.2) Albumin 3.8 gm/dl (3.4-5.0) Globulin 4.2 gm/dl (2.5-4.0) Albumin/Globulin Ratio 0.9 (0.9-2) Human Chorionic Gonadotropin, Quant 1369 mIU/mL Medical Decision Differential diagnosis includes spontaneous , threatened , subchorionic hematoma, ectopic , implantation bleeding, placenta previa , placental abruption, malignancy/mass, bleeding disorder, among others. The patient is a 27-year-old female who presents today complaining of vaginal bleeding in the first trimester. Labs revealed no leukocytosis, anemia or concerning electrolyte abnormalities. Urinalysis was suggestive of contamination versus infection. This will be sent for culture. Quantitative beta-hCG was found to be 1369. Pelvic ultrasound was performed and shows a thickened endometrium but no evidence of intrauterine gestational sac. I discussed the case with Dr. Sierra of [facility] FAILURE ANALYSIS ENGINEER. He recommended that the patient follow-up in 48 hours for repeat quant and office visit. Patient is blood type A+ and will not require RhoGam. All findings and treatment plan were discussed at length with the patient. She was advised to return here if she develops worsening pain, dizziness/lightheadedness, syncope, vomiting or any other new/concerning symptoms, as these could be concerning for ectopic . Based on the patient's presentation and work up, I feel the patient is stable for outpatient treatment. The patient was educated to return to the emergency department for any worsening of their current condition or new/concerning symptoms. She will follow up with FAILURE ANALYSIS ENGINEER. Medication Reconcilliation Current Medication List: was personally reviewed by me Blood Pressure Screening Patient's blood pressure: Normal blood pressure Impression Primary Impression: First trimester bleeding Departure Information Dispostion Home / Self-Care Condition GOOD Prescriptions No Active Prescriptions or Reported Meds Referrals Barbara Taylor C.R.N.PAlma (PCP) Bayron Sierra M.D. Patient Instructions My [facility] Additional Instructions Contact [facility] FAILURE ANALYSIS ENGINEER to schedule a follow-up appointment and repeat quantitative beta hCG in 2 days. Let them know that you were seen in the emergency department and we spoke with Dr. Sierra, who recommended this follow -up. For pain control, you can use the following [id number] medicines (if >12 yo): - Regular strength (325mg/tab) Tylenol (acetaminophen) 2 tabs every 4-6 hours as needed. Do not exceed 12 tablets in a 24 hour period. Avoid taking more than 4 grams (4000 mg) of Tylenol per day. This includes any other sources of acetaminophen you may take on a regular basis. Rest and drink plenty of fluids. Pelvic rest: Nothing in the vagina until cleared by orthopedics. Return to the emergency department with worsening pain, vomiting, dizziness/ lightheadedness, heavy bleeding or any other new/concerning symptoms.
[2017-06-19 11:41] LABS: BASO % 0.6 %; BASO ABS # 0.04 K/uL (0-0.2); EOS % 1.2 %; EOS ABS # 0.09 K/uL (0-0.5); HEMOGLOBIN 13.1 g/dL (12.0-16.0); IG# 0.02 K/uL (0.00-0.02); LYMPH % 29.4 %; LYMPH ABS # 2.14 K/uL (1.2-3.4); MEAN CELL VOLUME 83.5 fL (80-100); MEAN CORPUSCULAR HEMOGLOBIN 28.1 pg (25-34); MEAN CORPUSCULAR HGB CONC 33.6 g/dl (32-36); MEAN PLATELET VOLUME 8.9 fL (7.4-10.4); MONO % 7.3 %; MONO ABS # 0.53 K/uL (0.11-0.59); NEUT % 61.2 %; NEUT ABS # 4.45 K/uL (1.4-6.5); PLATELET COUNT 270 K/uL (130-400); RED CELL DISTRIBUTION WIDTH CV 14.2 % (11.5-14.5); RED CELL DISTRIBUTION WIDTH SD 43.1 fL (36.4-46.3); WHITE BLOOD COUNT 7.27 K/uL (4.8-10.8)
[2017-06-19 11:50] LABS: PTT PATIENT 27.1 SECONDS (21.0-31.0)
[2017-06-19 12:04] LABS: ALBUMIN 3.8 gm/dl (3.4-5.0); CREATININE 0.73 mg/dl (0.60-1.20); POTASSIUM 3.5 mmol/L (3.5-5.1)
--- NOTE | 2017-06-19 12:57 | DIAGNOSTIC IMAGING REPORT ---
LIMITED (US) CLINICAL HISTORY: , vaginal bleeding bleeding TECHNIQUE: Transabdominal as well as transvaginal ultrasound COMPARISON STUDY: 03/30/2017 FINDINGS: Uterus measures 11.6 cm. Endometrium measures 2.5 cm. No evidence for an intrauterine gestational sac. Right ovary measures 2.4 cm with normal vascular flow. The left ovary measures 2.9 cm with normal vascular flow. IMPRESSION: 1. No evidence for an intrauterine gestational sac. 2. Thickening of the endometrium and 2.5 cm possibly secondary to hormonal stimulation and or endometrial hyperplasia. The above report was generated using voice recognition software. It may contain grammatical, syntax or spelling errors. Electronically signed by: Jimbo Metz M.D. 06/19/2017 12:55 PM Dictated Date/Time: 06/19/2017 12:53 PM
[2017-06-19 13:32] VITALS: BP 111/70; PULSE 88; O2SAT 98
== END 2017-06-19 13:51 | disposition home or self-care (01) ==
LOC: C.EDB 10:42 → C.EDC 13:51
DX: O20.9 Hemorrhage in early pregnancy, unspecified (principal); Z3A.01 Less than 8 weeks gestation of pregnancy; J45.909 Unspecified asthma, uncomplicated; F31.9 Bipolar disorder, unspecified; K21.9 Gastro-esophageal reflux disease without esophagitis; E28.2 Polycystic ovarian syndrome; Z82.49 Family history of ischemic heart disease and other diseases of the circulatory system; Z82.0 Family history of epilepsy and other diseases of the nervous system

== ENCOUNTER → 2017-06-21 | Outpatient (CLI) | payer OTHER ==
[2017-06-21 10:23] LABS: HEMATOCRIT 37.3 % (37-47); HEMOGLOBIN 12.5 g/dL (12.0-16.0); MEAN CELL VOLUME 83.8 fL (80-100); MEAN CORPUSCULAR HEMOGLOBIN 28.1 pg (25-34); PLATELET COUNT 289 K/uL (130-400); RED CELL DISTRIBUTION WIDTH CV 14.1 % (11.5-14.5); RED CELL DISTRIBUTION WIDTH SD 43.1 fL (36.4-46.3); WHITE BLOOD COUNT 7.51 K/uL (4.8-10.8)
[2017-06-21 10:37] LABS: MEAN CORPUSCULAR HGB CONC 33.5 g/dl (32-36)
[2017-06-21 10:49] LABS: ALBUMIN 3.6 gm/dl (3.4-5.0); ALT/SGPT 35 U/L (12-78); AST/SGOT 22 U/L (15-37); BLOOD UREA NITROGEN 8 mg/dl (7-18); CALCIUM 8.6 mg/dl (8.5-10.1); CARBON DIOXIDE 27 mmol/L (21-32); CREATININE 0.69 mg/dl (0.60-1.20); GLUCOSE 81 mg/dl (70-99); POTASSIUM 3.8 mmol/L (3.5-5.1); SODIUM 139 mmol/L (136-145)
[2017-06-21 10:51] LABS: ALKALINE PHOSPHATASE 78 U/L (45-117); TOTAL PROTEIN 7.3 gm/dl (6.4-8.2)
== END | disposition home or self-care (01) ==
LOC: C.LAB1850 07:12
PROVIDERS: ATTEND Obstetrics & Gynecology
DX: O00.90 Unspecified ectopic pregnancy without intrauterine pregnancy (principal); O20.9 Hemorrhage in early pregnancy, unspecified

== ENCOUNTER → 2017-06-25 | Outpatient (CLI) | payer OTHER | END | disposition home or self-care (01) | LOC: C.LAB1850 13:28 | PROVIDERS: ATTEND Obstetrics & Gynecology | DX: O00.90 Unspecified ectopic pregnancy without intrauterine pregnancy (principal) ==

== ENCOUNTER → 2017-06-28 | Outpatient (CLI) | payer OTHER ==
[2017-06-28 11:25] LABS: BASO % 0.1 %; BASO ABS # 0.01 K/uL (0-0.2); EOS % 0.8 %; EOS ABS # 0.08 K/uL (0-0.5); HEMATOCRIT 38.6 % (37-47); HEMOGLOBIN 12.9 g/dL (12.0-16.0); IG# 0.03 K/uL (0.00-0.02); LYMPH % 22.5 %; LYMPH ABS # 2.32 K/uL (1.2-3.4); MEAN CELL VOLUME 84.1 fL (80-100); MEAN CORPUSCULAR HEMOGLOBIN 28.1 pg (25-34); MEAN PLATELET VOLUME 8.9 fL (7.4-10.4); MONO % 6.3 %; MONO ABS # 0.65 K/uL (0.11-0.59); NEUT ABS # 7.23 K/uL (1.4-6.5); PLATELET COUNT 293 K/uL (130-400); RED CELL DISTRIBUTION WIDTH CV 14.2 % (11.5-14.5); RED CELL DISTRIBUTION WIDTH SD 43.1 fL (36.4-46.3); WHITE BLOOD COUNT 10.32 K/uL (4.8-10.8)
[2017-06-28 11:49] LABS: ALBUMIN 3.7 gm/dl (3.4-5.0); TOTAL PROTEIN 7.8 gm/dl (6.4-8.2)
[2017-06-28 11:59] LABS: MEAN CORPUSCULAR HGB CONC 33.4 g/dl (32-36)
== END | disposition home or self-care (01) ==
LOC: C.LAB1850 10:50
PROVIDERS: ATTEND Obstetrics & Gynecology
DX: O00.90 Unspecified ectopic pregnancy without intrauterine pregnancy (principal)

== ENCOUNTER → 2017-10-14 | Outpatient (CLI) | payer OTHER | END | disposition home or self-care (01) | LOC: C.PAPS 15:49 | PROVIDERS: ATTEND Obstetrics & Gynecology | DX: O09.211 Supervision of pregnancy with history of pre-term labor, first trimester (principal); Z3A.00 Weeks of gestation of pregnancy not specified ==

== ENCOUNTER 2020-11-10 17:53 | Inpatient (IN) ==
[2020-11-10] MEDS ORDERED: SODIUM CHLORIDE 0.9% 1000ML 1,000 ML IV ONE (18:46)
[2020-11-10] MEDS ORDERED: ONDANSETRON INJ 2 MG/ML 2 ML VIAL IV STA (18:46)
[2020-11-10] MEDS ORDERED: MoRPHine SULFATE 10 MG/ML CARP/VIAL IV STA (18:46)
--- NOTE | 2020-11-10 18:50 | Emergency Department Note ---
Impression & Plan Back pain, Hydroureter, Renal colic ED Provider Note NAME: FROILAN PASCAL AGE: 30 SEX: F : 1990 ARRIVES VIA: Walk-In INFORMANT: Patient ED PROVIDER(S): Odilon Giraldo DO CHIEF COMPLAINT: left flank pain HPI: Patient is a 30-year-old female who is 36 weeks G 10 with P1 with 8 previous miscarriages who presents the ER for left flank pain. This started Saturday around 3 PM. She notes that sharp and stabbing. Radiates out to her left flank. She denies any dysuria, urgency, or frequency. She presents OB as she thought she was in labor. She was seen evaluated and sent home. She followed up with them yesterday as well. They told her that this likely a kidney stone. She has been taking Tylenol at home. She notes the pain is a 10 out of 10. Movement does not change the pain. She has never had anything like this before. No other exacerbating or remitting factors. She did vomit once. Denies any abdominal cramping or vaginal bleeding or discharge. Denies any fevers. No weakness or numbness in the arms or legs. No numbness in the groin. Able to urinate and move her bowels. ROS: See above HPI for pertinent positives & negatives. A total of 10 systems reviewed and were otherwise negative. PAST MEDICAL HISTORY:See Below PAST SURGICAL HISTORY:See Below FAMILY HISTORY:See Below SOCIAL HISTORY:See Below HOME MEDICATIONS:See Below ALLERGIES:See Below VITALS:See Below PHYSICAL EXAMINATION: GENERAL: Sitting up in bed, alert, moderate distress holding left lower back EYE EXAM: normal conjunctiva. OROPHARYNX: no exudate, no erythema, lips, buccal mucosa, and tongue normal and mucous membranes are moist NECK: supple, no nuchal rigidity, no adenopathy, non-tender LUNGS: Clear to auscultation. Normal chest wall mechanics HEART: no murmurs, S1 normal and S2 normal ABDOMEN: abdomen soft, non-tender, normo-active bowel sounds, no masses, no rebound or guarding. BACK: Back is symmetrical on inspection and there is no deformity, no midline tenderness, no CVA tenderness. UPPER EXTREMITIES: upper extremities are grossly normal. LOWER EXTREMITIES: No pitting edema. NEURO EXAM: Normal sensorium, cranial nerves II-XII grossly intact, normal speech, no gross weakness of arms, no gross weakness of legs. MEDICAL DECISION MAKING: Patient is a 30-year-old female who presents to the ER for the above-stated complaint. IV was established and blood work was obtained. Labs show no significant leukocytosis or anemia. BMP he along with LFTs, bilirubin and, and low lipase were normal. UA with bacteria in the urine although contaminated. Ultrasound shows bilateral hydroureter with no jet on the left. Discussed with urology and patient was evaluated by Madhu. He recommended admission and IV a ntibiotics. Discussed with Dr. Subhash Ramon for further evaluation. Patient was given multiple dose of morphine and a dose of Rocephin. Triage Nursing notes reviewed. Limited review of prior medical records performed Vital Signs: reviewed and remarkable for HTN and tachy Differential diagnosis: Differential diagnoses includes but is not limited to gastritis, peptic ulcer disease, GERD, gallbladder disease, pancreatitis, small bowel obstruction, acute coronary syndrome, pericarditis, ischemic bowel, irritable bowel disease, irritable bowel syndrome, appendicitis, diverticulitis, malignancy, hernia, urinary tract infection, torsion, /ectopic (if female), perforation, trauma, infectious. ER treatment provided: See below Diagnostics interpreted by me: ECG: none Cardiac Monitoring: An order was placed for continuous cardiac monitoring. The monitor shows a rate of 102 with sinus rhythm. Laboratory studies: As stated above and show below. Imaging studies: See below Consultation(s): As stated above Procedures: none Critical Care: None Past Med/Surg History Medical History Abnormal colonoscopy Allergic rhinitis Anemia Anxiety Asthma Chlamydia Crohns disease Depression Depression with anxiety Endometriosis determined by laparoscopy History of tobacco use Hypoglycemia Low back pain radiating to left leg Nodule of soft tissue Oral contraceptive prescribed Polycystic ovarian syndrome Tubular adenoma of colon Varicella vaccination Surgical History H/O dilation and curettage History of colonoscopy History of tonsillectomy and adenoidectomy S/P laparoscopy Rayne teeth removed Family History Aunt Migraine headache Brother Heart murmur Aunt Breast cancer Grandmother (Paternal) Colorectal cancer Brain cancer Denies family history of Ovarian cancer Social History Smoking Status: Never smoker Second Hand Exposure: No; Hx Alcohol Use: No Hx Substance Use: No Preferred Language: Austrian Communication Ability: Effective Flow Manager Required: No Beliefs That Will Affect Care: None marital status: marital status details: Chris Pascal [phone] Current Living Situation: Spouse Current Living Situation Comment: lives with spouse, daughter, 2 dogs current occupational status: employed current occupation: [employer] Feels Safe at Home: Yes Assistive Devices: None Allergies Allergies Allergy/AdvReac Type Severity Reaction Status Date / Time sertraline Allergy Mild hives Verified 11/09/20 10:20 Citalopram Analogues Allergy hives Verified 11/09/20 10:20 nickel Allergy Rash Verified 11/09/20 10:20 Home Meds Home Medications Medication Instructions Recorded Confirmed prenat.vits,catarina,[id number] 1 tab PO HS 06/09/20 11/10/20 hydroxyprogest(PF)(preg presv) 275 275 mg SUBCUT DIRECTED 06/22/20 11/10/20 mg/1.1 mL subcut auto-inject ([place] (PF)) acetaminophen 500 mg tablet 1,000 mg PO Q6H PRN 11/10/20 11/10/20 Previous Rx's Medication Instructions Recorded albuterol sulfate 90 mcg/actuation 2 puff INH QID PRN #6.7 gm 10/18/20 aerosol inhaler (Ventolin HFA) Results & Data (ED) Vital Signs Vital Signs - 24 hr 11/10/20 18:23 11/10/20 18:31 11/10/20 19:00 Temperature 36.7 C Temperature Source Oral Pulse Rate 123 H Pulse Rate [Radial] 113 H Pulse Rhythm Regular Regular Pulse Strength Normal Respiratory Rate 20 18 18 Respiratory Effort / Characteristics Non-Labored Spontaneous Respiratory Depth Normal Normal Normal Respiratory Pattern Regular Blood Pressure 148/87 H Blood Pressure [Left Arm] 163/90 H Blood Pressure Mean 107 Blood Pressure Mean [Left Arm] 114 Blood Pressure Position Sitting Pulse Oximetry 98 98 Oxygen Delivery Method Room Air Room Air Sepsis Recent Fever Within 48 Hours No Sepsis New/Unexplained Change in Mental Status No Sepsis Action Taken by Nursing No Action Required 11/10/20 20:01 11/10/20 21:49 Temperature Temperature Source Pulse Rate Pulse Rate [Radial] 101 H 106 H Pulse Rhythm Pulse Strength Respiratory Rate 18 18 Respiratory Effort / Characteristics Respiratory Depth Respiratory Pattern Blood Pressure Blood Pressure [Left Arm] 117/83 125/73 Blood Pressure Mean Blood Pressure Mean [Left Arm] 94 90 Blood Pressure Position Pulse Oximetry 98 98 Oxygen Delivery Method Room Air Room Air Sepsis Recent Fever Within 48 Hours Sepsis New/Unexplained Change in Mental Status Sepsis Action Taken by Nursing Laboratory Data Result diagrams: 11/10/20 18:51 11/10/20 18:51 Lab Results 11/10/20 11/10/20 11/10/20 Range/Units 18:50 18:51 18:51 WBC 9.75 (4.8-10.8) K/uL RBC 3.83 L (4.2-5.4) M/uL Hgb 11.5 L (12.0-16.0) g/dL Hct 33.6 L (37-47) % MCV 87.7 (80-100) fL MCH 30.0 (25-34) pg MCHC 34.2 (32-36) g/dL RDW Std Deviation 45.5 (36.4-46.3) fL RDW Coeff of Margaret 14.1 (11.5-14.5) % Plt Count 241 (130-400) K/uL MPV 9.9 (7.4-10.4) fL Immature Gran % (Auto) 0.5 % Neut % (Auto) 73.6 % Lymph % (Auto) 16.7 % [place] % (Auto) 8.6 % Eos % (Auto) 0.5 % Baso % (Auto) 0.1 % Neut # (Auto) 7.17 H (1.4-6.5) K/uL Lymph # (Auto) 1.63 (1.2-3.4) K/uL [place] # (Auto) 0.84 H (0.11-0.59) K/uL Eos # (Auto) 0.05 (0-0.5) K/uL Baso # (Auto) 0.01 (0-0.2) K/uL Immature Gran # (Auto) 0.05 H (0.00-0.02) K/uL Sodium 138 (136-145) mmol/L Potassium 3.0 L (3.5-5.1) mmol/L Chloride 110 H (98-107) mmol/L Carbon Dioxide 21 (21-32) mmol/L Anion Gap 7.0 (3-11) BUN 7 (7-18) mg/dl Creatinine 0.93 (0.6-1.2) mg/dl Est Cr Clr Drug Dosing 112.9 ml/min Est GFR ( Amer) 96.3 ml/min Est GFR (Non-Af Amer) 83.1 ml/min BUN/Creatinine Ratio 7.1 L (10-20) Glucose 141 H (70-99) mg/dl Calcium 8.9 (8.5-10.1) mg/dl Total Bilirubin 0.3 (0.2-1) mg/dl AST 18 (15-37) U/L ALT 24 (12-78) U/L Alkaline Phosphatase 169 H (45-117) U/L Total Protein 6.9 (6.4-8.2) gm/dl Albumin 2.3 L (3.4-5.0) gm/dl Globulin 4.6 H (2.5-4.0) gm/dl Albumin/Globulin Ratio 0.5 L (0.9-2) Lipase 129 (73-393) U/L Urine Color Yellow Urine Appearance Clear (Clear) Urine pH 7.0 (4.5-7.5) Ur Specific [place] 1.006 (1.000-1.030) Urine Protein Negative (Negative) Urine Glucose (UA) Negative (Negative) Urine Ketones Negative (Negative) Urine Blood 2+ H (Negative) Urine Nitrite Negative (Negative) Urine Bilirubin Negative (Negative) Urine Urobilinogen Negative (Negative) Ur Leukocyte Esterase Trace H (Negative) Urine WBC (Auto) 5-10 H (0-5) /hpf Urine RBC (Auto) 0-4 (0-4) /hpf U Hyaline Cast (Auto) 1-5 (0-5) /lpf U Epithel Cells (Auto) 20-30 H (0-5) /lpf Urine Bacteria (Auto) 1+ H (Negative) COVID-19 Eval Order SARS-CoV-2 (PCR) (Negative) 11/10/20 11/10/20 Range/Units 21:50 21:50 WBC (4.8-10.8) K/uL RBC (4.2-5.4) M/uL Hgb (12.0-16.0) g/dL Hct (37-47) % MCV (80-100) fL MCH (25-34) pg MCHC (32-36) g/dL RDW Std Deviation (36.4-46.3) fL RDW Coeff of Margaret (11.5-14.5) % Plt Count (130-400) K/uL MPV (7.4-10.4) fL Immature Gran % (Auto) % Neut % (Auto) % Lymph % (Auto) % [place] % (Auto) % Eos % (Auto) % Baso % (Auto) % Neut # (Auto) (1.4-6.5) K/uL Lymph # (Auto) (1.2-3.4) K/uL [place] # (Auto) (0.11-0.59) K/uL Eos # (Auto) (0-0.5) K/uL Baso # (Auto) (0-0.2) K/uL Immature Gran # (Auto) (0.00-0.02) K/uL Sodium (136-145) mmol/L Potassium (3.5-5.1) mmol/L Chloride (98-107) mmol/L Carbon Dioxide (21-32) mmol/L Anion Gap (3-11) BUN (7-18) mg/dl Creatinine (0.6-1.2) mg/dl Est Cr Clr Drug Dosing ml/min Est GFR ( Amer) ml/min Est GFR (Non-Af Amer) ml/min BUN/Creatinine Ratio (10-20) Glucose (70-99) mg/dl Calcium (8.5-10.1) mg/dl Total Bilirubin (0.2-1) mg/dl AST (15-37) U/L ALT (12-78) U/L Alkaline Phosphatase (45-117) U/L Total Protein (6.4-8.2) gm/dl Albumin (3.4-5.0) gm/dl Globulin (2.5-4.0) gm/dl Albumin/Globulin Ratio (0.9-2) Lipase (73-393) U/L Urine Color Urine Appearance (Clear) Urine pH (4.5-7.5) Ur Specific [place] (1.000-1.030) Urine Protein (Negative) Urine Glucose (UA) (Negative) Urine Ketones (Negative) Urine Blood (Negative) Urine Nitrite (Negative) Urine Bilirubin (Negative) Urine Urobilinogen (Negative) Ur Leukocyte Esterase (Negative) Urine WBC (Auto) (0-5) /hpf Urine RBC (Auto) (0-4) /hpf U Hyaline Cast (Auto) (0-5) /lpf U Epithel Cells (Auto) (0-5) /lpf Urine Bacteria (Auto) (Negative) COVID-19 Eval Order Covid19 at [facility] SARS-CoV-2 (PCR) NEGATIVE (Negative) Administered Medications Discontinued Medications Acetaminophen (Acetaminophen 325 Mg Tab) Confirm Administered Dose 650 mg .ROUTE .STK-MED ONE Stop: 11/10/20 20:41 Last Admin: 11/10/20 20:40 Dose: 650 mg Documented by: [id number] Sodium Chloride (Nss 1000ml) 1,000 mls @ 999 mls/hr IV .Q1H1M ONE Stop: 11/10/20 19:46 Last Infusion: 11/10/20 19:53 Dose: 0 mls/hr Documented by: [id number] Admin: 11/10/20 18:50 Dose: 999 mls/hr Documented by: [id number] Ceftriaxone Sodium (Rocephin) 1,000 mg in 50 mls @ 100 mls/hr IV NOW STA Stop: 11/10/20 21:41 Last Infusion: 11/10/20 22:20 Dose: 0 mls/hr Documented by: [id number] Admin: 11/10/20 21:49 Dose: 100 mls/hr Documented by: [id number] Morphine Sulfate (Morphine Sulfate 10 Mg/Ml Carp/Vial) 6 mg IV NOW STA Stop: 11/10/20 18:47 Last Admin: 11/10/20 18:55 Dose: 6 mg Documented by: [id number] Morphine Sulfate (Morphine Sulfate 4 Mg/Ml 1 Ml Carp\Vial) 4 mg IV NOW STA Stop: 11/10/20 21:12 Last Admin: 11/10/20 21:49 Dose: 4 mg Documented by: [id number] Ondansetron HCl (Ondansetron Inj 2 Mg/Ml 2 Ml Vial) 4 mg IV NOW STA Stop: 11/10/20 18:47 Last Admin: 11/10/20 18:55 Dose: 4 mg Documented by: [id number] Potassium Chloride (Potassium Chloride Crtab 20 Meq Tabcr) 40 meq PO NOW STA Stop: 11/10/20 19:25 Last Admin: 11/10/20 20:01 Dose: 40 meq Documented by: [id number] Imaging Data Radiologist's Impression: Renal Ultrasound 11/10/20 18:46 US renal/blad retro comp HISTORY: 30 years-old Female l flank pain acute left-sided flank pain with COMPARISON: None TECHNIQUE: Multiple real-time sonographic images of the kidneys and urinary bladder were obtained assessing grayscale appearance and color flow FINDINGS: The right kidney measures 12.4 cm in length and demonstrates moderate hydr onephrosis. No renal calculi or suspicious mass lesion. Unremarkable urinary bladder. Only the right ureteral jet identified. head causes mass effect upon the urinary bladder. The left kidney measures 12.7 cm in length and also demonstrates moderate hydronephrosis. A 6 mm nonobstructing calculus is noted within the lower pole left kidney. IMPRESSION: 1. Moderate symmetric bilateral hydroureteronephrosis. 2. 6 mm nonobstructing left renal calculus. 3. Nonvisualization of the left ureteral jet. ACT 112: Negative or not required by law. The above report was generated using voice recognition software. It may contain grammatical, syntax or spelling errors. Electronically signed by: Todd Cabrera M.D. 11/10/2020 8:08 PM Discharge Plan Visit Data Chief Complaint: Kidney Stone Stated Complaint: KIDNEY STONES (PRIOR URINE SCREEN MON) WORSENING ED Provider: Odilon Giraldo Discharge Problem: Back pain, Hydroureter, Renal colic Patient Disposition: Admitted As Inpatient Discharge Instructions Interventions: ED Discharge Assessment Last Done: 11/11/20 01:08 Discharge Problem: Back pain Qualifiers: Back pain location: low back pain Chronicity: acute Back pain laterality: unspecified Sciatica presence: unspecified whether sciatica present Qualified Code(s): M54.5 - Low back pain
[2020-11-10 19:00] LABS: Basophils # (auto) 0.01 K/uL (0-0.2); Basophils % (auto) 0.1 %; Eosinophils # (auto) 0.05 K/uL (0-0.5); Eosinophils % (auto) 0.5 %; Hematocrit (blood only) 33.6 % (37-47); Hemoglobin 11.5 g/dL (12.0-16.0); Immature Granulocytes # (auto) 0.05 K/uL (0.00-0.02); Immature Granulocytes % (auto) 0.5 %; Lymphocytes # (auto) 1.63 K/uL (1.2-3.4); Lymphocytes % (auto) 16.7 %; Mean Corpuscular Hgb Conc 34.2 g/dL (32-36); Mean Corpuscular Volume 87.7 fL (80-100); Mean Platelet Volume 9.9 fL (7.4-10.4); Monocytes # (auto) 0.84 K/uL (0.11-0.59); Monocytes % (auto) 8.6 %; Neutrophils # (auto) 7.17 K/uL (1.4-6.5); Neutrophils % (auto) 73.6 %; Platelet Count 241 K/uL (130-400); RDW Coefficient of Variation 14.1 % (11.5-14.5); RDW Standard Deviation 45.5 fL (36.4-46.3); Red Blood Count 3.83 M/uL (4.2-5.4); White Blood Count 9.75 K/uL (4.8-10.8)
[2020-11-10 19:16] LABS: Albumin Level 2.3 gm/dl (3.4-5.0); BUN Creatinine Ratio 7.1 (10-20); Calcium 8.9 mg/dl (8.5-10.1); Creatinine Clr Calc Pharmacy 112.9 ml/min; Est GFR (African American) 96.3 ml/min; Est GFR (Non-African American) 83.1 ml/min
[2020-11-10 19:19] LABS: Albumin Globulin Ratio 0.5 (0.9-2); Bilirubin,Total 0.3 mg/dl (0.2-1); Globulin 4.6 gm/dl (2.5-4.0); Total Protein 6.9 gm/dl (6.4-8.2)
[2020-11-10] MEDS ORDERED: POTASSIUM CHLORIDE CRTAB 20 MEQ TABCR PO STA (19:24)
[2020-11-10 19:49] LABS: Appearance Urine Clear (Clear); Bacteria Urine Automated 1+ (Negative); Bilirubin Urine Negative (Negative); Blood Urine 2+ (Negative); Color Urine Yellow; Epithelial Cell Urine Auto 20-30 /lpf (0-5); Glucose Urine UA Negative (Negative); Ketones Urine Negative (Negative); Leukocyte Esterase Urine Trace (Negative); Nitrite Urine Negative (Negative); Protein Urine Negative (Negative); RBC Urine Automated 0-4 /hpf (0-4); Specific Gravity Urine 1.006 (1.000-1.030); Urobilinogen Urine Negative (Negative)
--- NOTE | 2020-11-10 20:09 | Ultrasound Report ---
US renal/blad retro comp HISTORY: 30 years-old Female l flank pain acute left-sided flank pain with COMPARISON: None TECHNIQUE: Multiple real-time sonographic images of the kidneys and urinary bladder were obtained ass essing grayscale appearance and color flow FINDINGS: The right kidney measures 12.4 cm in length and demonstrates moderate hydronephrosis. No renal calcul i or suspicious mass lesion. Unremarkable urinary bladder. Only the right ureteral jet identified. head causes mass effect u sandra the urinary bladder. The left kidney measures 12.7 cm in length and also demonstrates moderate hydronephrosis. A 6 mm nono bstructing calculus is noted within the lower pole left kidney. IMPRESSION: 1. Moderate symmetric bilateral hydroureteronephrosis. 2. 6 mm nonobstructing left renal calculus. 3. Nonvisualization of the left ureteral jet. ACT 112: Negative or not required by law. The above report was generated using voice recognition software. It may contain grammatical, syntax o r spelling errors. Electronically signed by: Todd Cabrera M.D. 11/10/2020 8:08 PM
[2020-11-10] MEDS ORDERED: ACETAMINOPHEN 325 MG TAB ONE (20:40)
[2020-11-10] MEDS ORDERED: MoRPHine SULFATE 4 MG/ML 1 ML CARP\\VIAL IV STA (21:11)
[2020-11-10] MEDS ORDERED: cefTRIAXone SODIUM 1,000 MG/50 ML BAG IV STA (21:12)
--- NOTE | 2020-11-10 21:24 | Urology Consultation ---
Date of Consultation November 10, 2020 Assessment & Plan (1) Kidney stone complicating : I discussed this case with my attending physician Dr. Ethan Pop. He notes that as the patient is currently not septic and is not in renal failure acute urologic intervention is not warranted particularly in a patient who is 36 weeks . If patient is to develop sepsis or renal failure requiring urologic intervention the best course of action would be to transfer the patient to a tertiary care center for percutaneous nephrostomy. I have further discussed case with the emergency room physician Dr. Giraldo and discussed the above with him. He notes he is planning having the hospitalist admit the patient for pain control. He also notes that due to the patient's bacteria he will place the patient on antibiotics and has initiated Rocephin. A urine culture has been sent and is pending. Antibiotics can be tailored based on urine culture results. Additional plans as directed by the primary service. History of Present Illness Reason for Consultation: Nephrolithiasis History of Present Illness This is a 30-year-old female who presented to [facility] emergency department secondary to left flank pain for approximately 4 days. She says that the pain comes and goes at random intervals and she was initially concerned that she was in labor as she is 36 weeks . She says she was evaluated by her [employer] team and it was not felt to be labor. Patient says that the pain continued over the past 4 days but became unbearable so she presented the emergency department. The patient denies any fevers. No shakes or rigors were noted. The patient does note she gets nausea and vomiting when the pain comes. The pain does radiate somewhat to the front of her abdomen. She does not note any palliative factors other medicines that were administered in the emergency department. She does not note any provocative factors. She denies any prior history of kidney stones in the past. Concerning prior abdominal surgery she did have a laparoscopy to diagnose endometriosis. Patient says that this is her second and her first was complicated by labor at 32 weeks but her child was delivered and is currently healthy. In addition the patient says that she suffers from Crohn's disease. She says she is not sure when this condition was diagnosed but was diagnosed via colonoscopy. She notes that she has had numerous colonoscopies but has never had an upper endoscopy. She currently does not take any medicines for her Crohn's and notes that the condition is currently not problematic. In the emergency department patient did have labs and imaging which I independently reviewed. Patient did have a renal ultrasound that showed she had moderate symmetric bilateral hydronephrosis. Is also noted to have a 6 mm nonobstructing left renal stone. Labs including CBC were white blood cell count was normal at 9.75. Her hemoglobin and hematocrit were 11.5 and 33.6. Platelet count was within normal range. A chemistry profile showed sodium was 138. Potassium is low at 3.0. BUN and creatinine were both noted to be within normal range. A urinalysis did show 2+ blood along with trace leukocyte esterase and 5-10 white blood cells per high-power field. There is 1+ bacteria noted on the study. At the time of my interview the patient was resting in bed. She was in no distress at the time of my interview Allergies Allergy/AdvReac Type Severity Reaction Status Date / Time sertraline Allergy Mild hives Verified 11/09/20 10:20 Citalopram Analogues Allergy hives Verified 11/09/20 10:20 nickel Allergy Rash Verified 11/09/20 10:20 Home Medications Medication Instructions Recorded Confirmed Type prenat.vits,catarina,[id number] 1 tab PO HS 06/09/20 11/09/20 History hydroxyprogest(PF)(preg presv) 275 275 mg SUBCUT DIRECTED 06/22/20 11/09/20 History mg/1.1 mL subcut auto-inject (Latonya (PF)) albuterol sulfate 90 mcg/actuation 2 puff INH QID PRN #6.7 gm 10/18/20 11/09/20 Rx aerosol inhaler (Ventolin HFA) Patient History Medical History Abnormal colonoscopy Allergic rhinitis Anemia Anxiety Asthma Chlamydia Crohns disease Depression Depression with anxiety Endometriosis determined by laparoscopy History of tobacco use Hypoglycemia Low back pain radiating to left leg Nodule of soft tissue Oral contraceptive prescribed Polycystic ovarian syndrome Tubular adenoma of colon Varicella vaccination Surgical History H/O dilation and curettage History of colonoscopy History of tonsillectomy and adenoidectomy S/P laparoscopy [place] teeth removed Family History Aunt Migraine headache Brother Heart murmur Aunt Breast cancer Grandmother (Paternal) Colorectal cancer Brain cancer Denies family history of Ovarian cancer Social History Smoking Status: Never smoker Second Hand Exposure: No; Hx Alcohol Use: No Hx Substance Use: No Preferred Language: Beninese Communication Ability: Effective Regional Wildlife 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 Required: No Beliefs That Will Affect Care: None marital status: marital status details: Chris Mckeon (30) [phone] Current Living Situation: Spouse Current Living Situation Comment: lives with spouse, daughter, 2 dogs current occupational status: employed current occupation: [employer] Feels Safe at Home: Yes Assistive Devices: None Review of Systems Constitutional: no fever and no chills Eyes: no diplopia Ear, Nose, Mouth, Throat: no hearing loss Respiratory: no cough and no dyspnea Cardiovascular: no chest pain Gastrointestinal: + nausea and + vomiting; no abdominal pain Genitourinary: no dysuria and no urinary frequency Musculoskeletal: + back pain (Left flank) Integumentary: no rash Neurologic: no localized weakness Physical Exam Constitutional: well developed and well nourished; no acute distress Eyes: no conjunctival abnormality ENMT: Ears: no hearing impairment Mouth: no oropharynx abnormality Neck: trachea midline Respiratory: normal respiratory effort; no respiratory distress and no labored breathing Cardiovascular: Rate/Rhythm: regular rate and regular rhythm Gastrointestinal (Abdomen): Patient's abdominal exam is consistent with 36 weeks gestation. There is no pain with palpation of her abdomen. Musculoskeletal: No calf tenderness Skin: no rashes Neurologic: moves all extremities Psychiatric: A+Ox3, euthymic affect Genitourinary: + CVA tenderness (Left-sided with percussion) Results & Data ([facility]) Vital Signs (Past 12 Hours) Vital Signs Temp Pulse Pulse Resp BP BP Pulse Ox 11/10/20 20:01 101 H 18 117/83 98 11/10/20 19:00 113 H 18 163/90 H 98 11/10/20 18:31 18 11/10/20 18:23 36.7 C 123 H 20 148/87 H 98 PG Care Time/CCT Total # of Minutes Spent Total Time Spent with Patient: Total time spent is greater than 50% in coordination of care (as documented) at patient's floor/unit and/or counseling patient: Coding Level of Care Code 74534 Inpt Consult Level 5 Diagnoses Kidney stone complicating O26.839; N20.0
--- NOTE | 2020-11-11 00:15 | History & Physical Report ---
Date of Service November 10, 2020 Assessment & Plan (1) Kidney stone complicating : Plan: 30 yo at 35 6/7 weeks gestation with a pMHx. of anxiety, depression, Crohn disease, PCOS, PROM, and allergic rhinitis current complicated by prior UTI along with a velamentous cord who is here with left back pain found to have a non obstructing 6mm stone and a concerning contaminated urine sample without urinary symptoms. Nephrolithiasis ultrasound with moderate symmetric hydroureteronephrosis, 6 mm nonobstructing left lower pole stone cr. 0.93 - NSS IVF running at 125/hr. - Tylenol and Morphine for pain control - Urology was consulted - no indication for a urologic procedure at this time and if the patient becomes septic or develops renal failure they rec. transfer to tertiary care center - continue to follow BMP Concern for pyelonephritis vs. UTI vs. asymptomatic bacteria - UA with 2+ blood, trace LCE, WBC, 20-30 Epithelial cells, 1+ bacteria - Ceftriaxone started in ER - continue 1G daily - pending urine culture - obtained blood cultures which were pre-treated with Ceftriaxone Hx. of PROM prior admission to OB on 11/07 with category 1 FHT and no cervical change with occasional contractions at that time - no current contractions, LOF, bleeding, good movement (per patient) - continue Sehili started for prior PROM - continue to monitor patient for contractions, LOF, or bleeding Diarrhea - ordered c. diff. given recent abx. for UTI Code: Full Diet: regular (OB) DVT: SCD's (2) Velamentous insertion of umbilical cord: (3) : (4) Crohns disease: (5) Depression with anxiety: History of Present Illness Chief Complaint: back pain Primary Care Provider: KEHINDE Granger Barbara Mckeon is a 35 6/7 week gestation 30-year-old female with a past medical history of anxiety, depression, Crohn disease, PCOS, and allergic rhinitis with this complicated by a velamentous cord and prior UTI 2 months ago treated with Macrobid who is here with left back pain. She developed the pain on Saturday at 3AM in her left lower back. She waited and a couple hours later it worsened she went in to the ER with the concern that she was going into pre-term labor. She has a history of labor with her child being born at 32 weeks gestation. She was seen on the OB floor and found not to be in labor (reassuring FHT's, no cervical change) and it was thought at that time that the pain was from a kidney stone. Her pain is currently 7/10 after pain medication and was 10/10 prior. The pain is a dull constant pain along with a milton pain that last 5-10 minutes and is more severe but also dull. She has been taking Tylenol 1000 mg 3 times a day. She has improvement in her pain with hydration. The pain has made her nauseous and she has lost her appetite, eating very little since Saturday. Denies bleeding, fluid, increased discharge ER course: Morphine, 1L NSS, Ceftriaxone, KCL 40 meq Social: denies tobacco, ETOH, rec. drug use Allergies Allergy/AdvReac Type Severity Reaction Status Date / Time sertraline Allergy Mild hives Verified 11/09/20 10:20 Citalopram Analogues Allergy hives Verified 11/09/20 10:20 nickel Allergy Rash Verified 11/09/20 10:20 Home Medications Medication Instructions Recorded Confirmed Type prenat.vits,catarina,[id number] 1 tab PO HS 06/09/20 11/10/20 History hydroxyprogest(PF)(preg presv) 275 275 mg SUBCUT DIRECTED 06/22/20 11/10/20 History mg/1.1 mL subcut auto-inject (Latonya (PF)) albuterol sulfate 90 mcg/actuation 2 puff INH QID PRN #6.7 gm 10/18/20 11/10/20 Rx aerosol inhaler (Ventolin HFA) acetaminophen 500 mg tablet 1,000 mg PO Q6H PRN 11/10/20 11/10/20 History Past Med/Surg History Medical History Abnormal colonoscopy Allergic rhinitis Anemia Anxiety Asthma Chlamydia Crohns disease Depression Depression with anxiety Endometriosis determined by laparoscopy History of tobacco use Hypoglycemia Low back pain radiating to left leg Nodule of soft tissue Oral contraceptive prescribed Polycystic ovarian syndrome Tubular adenoma of colon Varicella vaccination Surgical History H/O dilation and curettage History of colonoscopy History of tonsillectomy and adenoidectomy S/P laparoscopy [place] teeth removed Family History Aunt Migraine headache Brother Heart murmur Aunt Breast cancer Grandmother (Paternal) Colorectal cancer Brain cancer Denies family history of Ovarian cancer Social History Smoking Status: Never smoker Second Hand Exposure: No; Hx Alcohol Use: No Hx Substance Use: No Preferred Language: Luxembourger Communication Ability: Effective Ticket Attendant Required: No Beliefs That Will Affect Care: None marital status: marital status details: Chris Mckeon (30) [phone] Current Living Situation: Family Current Living Situation Comment: lives with spouse, daughter, 2 dogs current occupational status: employed current occupation: [employer] Other Information That Helps Us Care for You: No Feels Safe at Home: Yes and No Is there a partner from a previous relationship who is making you feel unsafe now?: No Any Concerns about Your Family Situation: No Would You Like to Speak to Someone About Your Situation: No Safety Concerns: Feels Safe At This Time Assistive Devices: None Review of Systems Review of Systems: Constitutional: denies general weakness, weight loss admits subjective fevers, chills, nausea, vomiting X 1, fatigue, diaphoresis, night sweats Head: denies trauma, LOC, confusion, lightheadedness, vision changes Neurologic: denies syncope, pre-sycnope, slurring of speech, focal weakness ENT: denies rhinorrhea, stuffiness, sneezing, sore throat Cardiac: denies chest pain, palpitations, leg swelling, orthopnea Pulm.: denies cough, shortness of breath admits wheezing GI: denies constipation, blood in stool admits diarrhea, early this week with yellow stool : denies urgency or pain with urination admits increased frequency Physical Exam Constitutional: well developed and well nourished Eyes: PERRL and EOM intact bilaterally ENMT: external ear and nose normal, oropharynx normal Neck: normal visual inspection Respiratory: normal respiratory effort, lungs clear to auscultation Cardiovascular: RRR, no murmur, no edema Gastrointestinal (Abdomen): - gravid, bowel sounds + Musculoskeletal: - CVA tenderness Skin: no rashes, warm and dry Neurologic: no focal motor deficits Psychiatric: Orientation: alert and oriented x 3 Eye Contact: good eye contact Speech: no pressured speech Affect: + tearful affect Results & Data Results & Data ([facility]) Vital Signs (Past 12 Hours) Vital Signs Temp Pulse Pulse Resp BP BP Pulse Ox 11/10/20 23:40 103 H 18 142/79 H 96 11/10/20 21:49 106 H 18 125/73 98 11/10/20 20:01 101 H 18 117/83 98 11/10/20 19:00 113 H 18 163/90 H 98 11/10/20 18:31 18 11/10/20 18:23 36.7 C 123 H 20 148/87 H 98 CBC Results Results Complete Blood Count Results: RBC 3.74 M/uL (4.2-5.4) L 11/11/20 WBC 9.69 K/uL (4.8-10.8) 11/11/20 Hgb 10.7 g/dL (12.0-16.0) L 11/11/20 Hct 32.9 % (37-47) L 11/11/20 Plt Count 208 K/uL (130-400) 11/11/20 Chemistry (BMP) Results BMP Results: Sodium 141 mmol/L (136-145) 11/11/20 Potassium 3.3 mmol/L (3.5-5.1) L 11/11/20 Chloride 112 mmol/L (98-107) H 11/11/20 BUN 6 mg/dl (7-18) L 11/11/20 Creatinine 0.94 mg/dl (0.6-1.2) 11/11/20 Glucose 85 mg/dl (70-99) 11/11/20 Supervising Physician Co-Signing Physician Notes Attending addendum: I have physically seen this patient, have supervised the medical residents activities, and agree with the H&P unless as otherwise noted. Assessment and Plan: 6 mm left renal calculus/left flank pain/moderate bilateral hy droureteronephrosis/approximate 36-week female- NSS@125 mils per hour Acetaminophen 650 mg p.o. every 6 hours as needed mild pain or fever Morphine sulfate 2 mg IV every 4 hours as needed severe pain Ceftriaxone 1 g IV daily Follow urine culture and sensitivity Follow blood cultures Neurology consulted and saw patient in the ED Remaining orders and notations as noted Resident Activity Tracking Resident Involvement: Resident Care Provided Care Provided: Adult Hospital Medicine
[2020-11-11] MEDS ORDERED: ALBUTEROL HFA 8 GM INHALER INH PRN (01:26)
[2020-11-11] MEDS: SODIUM CHLORIDE 0.9% 1000ML 1,000 ML IV SCH ×2 (02:00→10:02)
[2020-11-11] MEDS: MoRPHine SULFATE 4 MG/ML 1 ML CARP\\VIAL IV PRN ×6 (02:00→21:53)
[2020-11-11 06:36] LABS: Basophils # (auto) 0.01 K/uL (0-0.2); Basophils % (auto) 0.1 %; Eosinophils # (auto) 0.05 K/uL (0-0.5); Eosinophils % (auto) 0.5 %; Hematocrit (blood only) 32.9 % (37-47); Hemoglobin 10.7 g/dL (12.0-16.0); Immature Granulocytes # (auto) 0.06 K/uL (0.00-0.02); Immature Granulocytes % (auto) 0.6 %; Lymphocytes # (auto) 1.81 K/uL (1.2-3.4); Lymphocytes % (auto) 18.7 %; Mean Corpuscular Hemoglobin 28.6 pg (25-34); Mean Corpuscular Hgb Conc 32.5 g/dL (32-36); Mean Platelet Volume 9.7 fL (7.4-10.4); Monocytes # (auto) 0.89 K/uL (0.11-0.59); Monocytes % (auto) 9.2 %; Neutrophils # (auto) 6.87 K/uL (1.4-6.5); Neutrophils % (auto) 70.9 %; Platelet Count 208 K/uL (130-400); RDW Coefficient of Variation 14.4 % (11.5-14.5); RDW Standard Deviation 46.6 fL (36.4-46.3); Red Blood Count 3.74 M/uL (4.2-5.4); White Blood Count 9.69 K/uL (4.8-10.8)
[2020-11-11 07:02] LABS: Calcium 8.3 mg/dl (8.5-10.1); Potassium 3.3 mmol/L (3.5-5.1)
--- NOTE | 2020-11-11 09:27 | Medical Student Progress Note ---
Date of Service November 11, 2020 Assessment & Plan (1) Left flank pain: Plan: #flank pain -pain management w/ 4mg morphine q3 PRN; received 4 doses to date -Ceftriaxone 2,000 mg q24 given +UA -if stool uncollected in 24 hr cancel C. diff testing -urology consulted, if +sepsis or +renal failure then transfer to tertiary center for percutaneous nephrostomy. US showed L kidney 6mm calculi -OB saw her during ED visit on 11/07 and ruled out labor; also saw OB outpatient earlier this week -Zofran 4mg q6 PRN #disposition: monitor in hospital for development of sepsis, renal failure, worsening of sx, or labor #FNE: NPO order canceled, lots of fluids as tolerated #DVT prophylaxis Full code Admission and Anticipated Discharge Date Admission Date: November 10, 2020 Subjective Pt is a 30 y/o [id number] UTI during current , velamentous cord, hx of PROM, PCOS, endometriosis, Crohn's, anxiety, depression who presented to ED yesterday 11/10 around 19:00 for left lower back pain. Pain began Tuesday 11/07 around 3am, it awoke her and she thought she was in labor. At worst pain is 10/10, Tylenol somewhat relieves pain for about 1 hour. She vomited 1x due to pain. Was drinking up to 1 case of water/day. At time of ED presentation there was no dysuria/difficulty urinating, urgency, cramping, vaginal bleeding/discharge, fevers, chills. ED course: -given multiple doses of morphine -UA showed bacteria but it was a contaminated sample -Ceftriaxone administered -no leukocytosis, anemia; LFTs, lipases, bilirubin normal -US showed bilateral moderate hydroureter/hydronephrosis w/ no jet on the L side -cardiac monitoring showed rate of 102 bpm w/ sinus rhythm Today pain is 9/10, it is prior to her next requested dose of morphine. Pain is still in L lower back region, not radiating elsewhere. Describes it as a dull/constant pain. She did not get any sleep last night. Active orders for 4mg morphine when pain 6-10;it was given on 11/11 at 2am, 4am and 8:40am. Morphine lowers pain to 5/10. Her urine is dark but no burning/frequency/urgency/pain. Pt is tearful, says she is a "ball of emotions." No trauma to the L lower back reg ion, no saddle anesthesia/weakness/numbness/tingling/vision/hearing changes. No hx of frequent URIs. Pt reports subjective fever/hot flashes/chills for last 2 weeks she attributes to pain but no cough. No bowel movements since hospitalization, did share a hx of constipation during this and hemorrhoids/anal fissure that did leave blood in stool. In May she was given a prescription from [facility] for these sx but she can't remember which one. Her Crohn's improved during both pregnancies, otherwise stable. When she flares, ibuprofen is sufficient. Review of Systems Review of Systems: see HPI Physical Exam Physical Exam: Pt is tearful and in 9/10 pain for L lower back, sitting upright in bed, alert Eyes: PERRL, conjunctivae normal, anicteric sclerae ENMT: Pt still has baby teeth and a fake tooth but otherwise no dental concerns Able to elevate/depress tongue, able to move tongue bilaterally Respiratory: CTA BL, no rales/rhonchi/wheezing, no increased respiratory effort Cardiovascular: RRR, no M/R/G, radial pulses equally strong BL, no carotid bruits appreciated Musculoskeletal: +L sided CVA tenderness, negative on the R Neurologic: CN 2-12 intact Sensation intact to light touch in UE/LE including hands/feet ROM intact for abduction/adduction of shoulders; flexion/extension intact for elbows, knees, hips (hip extension not tested) Strength 5/5 BL for shoulder shrug, biceps, triceps, 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 plastic 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 maker, hip flexion, knee flexion/extension, dorsal/plantar extension/flexion Reflexes 2/4 for biceps, brachioradialis, patellar Results & Data ([facility]) Vital Signs (Past 12 Hours) Vital Signs Temp Pulse Pulse Resp BP Pulse Ox 11/11/20 08:01 36.8 C 89 16 123/79 98 11/11/20 01:20 36.8 C 94 H 18 127/81 98 11/11/20 01:07 103 H 16 123/76 99 11/10/20 23:40 103 H 18 142/79 H 96 11/10/20 21:49 106 H 18 125/73 98 Laboratory Results 11/11/20 11/11/20 11/10/20 05:40 05:40 21:50 WBC 9.69 RBC 3.74 L Hgb 10.7 L Hct 32.9 L MCV 88.0 MCH 28.6 MCHC 32.5 RDW Std Deviation 46.6 H RDW Coeff of Margaret 14.4 Plt Count 208 MPV 9.7 Immature Gran % (Auto) 0.6 Neut % (Auto) 70.9 Lymph % (Auto) 18.7 [place] % (Auto) 9.2 Eos % (Auto) 0.5 Baso % (Auto) 0.1 Neut # (Auto) 6.87 H Lymph # (Auto) 1.81 [place] # (Auto) 0.89 H Eos # (Auto) 0.05 Baso # (Auto) 0.01 Immature Gran # (Auto) 0.06 H Sodium 141 Potassium 3.3 L Chloride 112 H Carbon Dioxide 24 Anion Gap 5.0 BUN 6 L Creatinine 0.94 Est Cr Clr Drug Dosing 111.0 Est GFR ( Amer) 95.0 Est GFR (Non-Af Amer) 82.0 BUN/Creatinine Ratio 6.0 L Glucose 85 Calcium 8.3 L Total Bilirubin AST ALT Alkaline Phosphatase Total Protein Albumin Globulin Albumin/Globulin Ratio Lipase Urine Color Urine Appearance Urine pH Ur Specific [place] Urine Protein Urine Glucose (UA) Urine Ketones Urine Blood Urine Nitrite Urine Bilirubin Urine Urobilinogen Ur Leukocyte Esterase Urine WBC (Auto) Urine RBC (Auto) U Hyaline Cast (Auto) U Epithel Cells (Auto) Urine Bacteria (Auto) COVID-19 Eval Order SARS-CoV-2 (PCR) NEGATIVE 11/10/20 11/10/20 11/10/20 21:50 18:51 18:51 WBC 9.75 RBC 3.83 L Hgb 11.5 L Hct 33.6 L MCV 87.7 MCH 30.0 MCHC 34.2 RDW Std Deviation 45.5 RDW Coeff of Margaret 14.1 Plt Count 241 MPV 9.9 Immature Gran % (Auto) 0.5 Neut % (Auto) 73.6 Lymph % (Auto) 16.7 [place] % (Auto) 8.6 Eos % (Auto) 0.5 Baso % (Auto) 0.1 Neut # (Auto) 7.17 H Lymph # (Auto) 1.63 [place] # (Auto) 0.84 H Eos # (Auto) 0.05 Baso # (Auto) 0.01 Immature Gran # (Auto) 0.05 H Sodium 138 Potassium 3.0 L Chloride 110 H Carbon Dioxide 21 Anion Gap 7.0 BUN 7 Creatinine 0.93 Est Cr Clr Drug Dosing 112.9 Est GFR ( Amer) 96.3 Est GFR (Non-Af Amer) 83.1 BUN/Creatinine Ratio 7.1 L Glucose 141 H Calcium 8.9 Total Bilirubin 0.3 AST 18 ALT 24 Alkaline Phosphatase 169 H Total Protein 6.9 Albumin 2.3 L Globulin 4.6 H Albumin/Globulin Ratio 0.5 L Lipase 129 Urine Color Urine Appearance Urine pH Ur Specific [place] Urine Protein Urine Glucose (UA) Urine Ketones Urine Blood Urine Nitrite Urine Bilirubin Urine Urobilinogen Ur Leukocyte Esterase Urine WBC (Auto) Urine RBC (Auto) U Hyaline Cast (Auto) U Epithel Cells (Auto) Urine Bacteria (Auto) COVID-19 Eval Order Covid19 at [facility] SARS-CoV-2 (PCR) 11/10/20 18:50 WBC RBC Hgb Hct MCV MCH MCHC RDW Std Deviation RDW Coeff of Margaret Plt Count MPV Immature Gran % (Auto) Neut % (Auto) Lymph % (Auto) [place] % (Auto) Eos % (Auto) Baso % (Auto) Neut # (Auto) Lymph # (Auto) [place] # (Auto) Eos # (Auto) Baso # (Auto) Immature Gran # (Auto) Sodium Potassium Chloride Carbon Dioxide Anion Gap BUN Creatinine Est Cr Clr Drug Dosing Est GFR ( Amer) Est GFR (Non-Af Amer) BUN/Creatinine Ratio Glucose Calcium Total Bilirubin AST ALT Alkaline Phosphatase Total Protein Albumin Globulin Albumin/Globulin Ratio Lipase Urine Color Yellow Urine Appearance Clear Urine pH 7.0 Ur Specific [place] 1.006 Urine Protein Negative Urine Glucose (UA) Negative Urine Ketones Negative Urine Blood 2+ H Urine Nitrite Negative Urine Bilirubin Negative Urine Urobilinogen Negative Ur Leukocyte Esterase Trace H Urine WBC (Auto) 5-10 H Urine RBC (Auto) 0-4 U Hyaline Cast (Auto) 1-5 U Epithel Cells (Auto) 20-30 H Urine Bacteria (Auto) 1+ H COVID-19 Eval Order SARS-CoV-2 (PCR) vaginal/rectal and blood cultures pending Diagnostic Findings Renal Ultrasound 11/10/20 18:46 US renal/blad retro comp HISTORY: 30 years-old Female l flank pain acute left-sided flank pain with COMPARISON: None TECHNIQUE: Multiple real-time sonographic images of the kidneys and urinary bladder were obtained assessing grayscale appearance and color flow FINDINGS: The right kidney measures 12.4 cm in length and demonstrates moderate hydronephrosis. No renal calculi or suspicious mass lesion. Unremarkable urinary bladder. Only the right ureteral jet identified. head causes mass effect upon the urinary bladder. The left kidney measures 12.7 cm in length and also demonstrates moderate hydronephrosis. A 6 mm nonobstructing calculus is noted within the lower pole left kidney. IMPRESSION: 1. Moderate symmetric bilateral hydroureteronephrosis. 2. 6 mm nonobstructing left renal calculus. 3. Nonvisualization of the left ureteral jet. ACT 112: Negative or not required by law. The above report was generated using voice recognition software. It may contain grammatical, syntax or spelling errors. Electronically signed by: Todd Cabrera M.D. 11/10/2020 8:08 PM Medications Administered Current Inpatient Medications Acetaminophen (Acetaminophen 500 Mg Tab) 1,000 mg PO Q6H PRN PRN Reason: Pain Stop: 12/11/20 01:49 Albuterol (Albuterol Hfa 8 Gm Inhaler) 2 puffs INH QID PRN PRN Reason: shortness of breath or wheezing Stop: 12/11/20 01:25 Sodium Chloride (Nss 1000ml) 1,000 mls @ 125 mls/hr IV .Q8H [facility] Stop: 11/11/20 17:25 Last Admin: 11/11/20 10:02 Dose: 125 mls/hr Documented by: Ceftriaxone Sodium 2,000 mg/ (Dextrose) 70 mls @ 100 mls/hr IV Q24H [facility]; Protocol Stop: 11/21/20 20:59 Miscellaneous ([place]~Order Awaiting Action) 1 ea N/A QS [facility] Stop: 12/14/20 07:59 Morphine Sulfate (Morphine Sulfate 2 Mg/Ml Carp) 2 mg IV Q3H PRN PRN Reason: Pain (1,2,3,4,5) & Pre PT Stop: 11/25/20 01:25 Morphine Sulfate (Morphine Sulfate 4 Mg/Ml 1 Ml Carp\\Vial) 4 mg IV Q3H PRN PRN Reason: Pain (6,7,8,9,10) Stop: 11/25/20 01:25 Last Admin: 11/11/20 14:37 Dose: 4 mg Documented by: Ondansetron HCl (Ondansetron Inj 2 Mg/Ml 2 Ml Vial) 4 mg IV Q6H PRN PRN Reason: Nausea And Vomiting Stop: 12/11/20 10:18 Prenat Multivit/Flight Test Supervisor/Iron/Folic Ac ( Vitamin 1 Tab) 1 tab PO HS CORDELIA Stop: 12/11/20 20:59
--- NOTE | 2020-11-11 10:24 | Urology Progress Note ---
Date of Service November 11, 2020 Assessment & Plan (1) Left flank pain: (2) Nephrolithiasis: Plan: 30 year-old female, who is 36 weeks , admitted with intractable left- sided flank pain. -Plan of care reviewed with Dr. Pop. -Patient remains afebrile. -Labs reviewed - white count and creatinine normal. -Urine and blood cultures pending. Follow cultures and treat if indicated. -Left flank pain of uncertain etiology. FARRUKH reviewed and notable for b/l hydronephrosis which is not uncommon given status in addition to nonobstructing left renal calculus. No visible obstructing/ureteral calculi identified on ultrasound. -Recommend continued pain control, hydration, and supportive care. -Given she is afebrile with stable creatinine, no acute intervention indicated at this time. -If patient develops signs of sepsis or acute renal failure requiring urologic intervention, recommend transfer the patient to a tertiary care center for percutaneous nephrostomy. -Urology will sign off at this time. Please contact us with any additional que stions/concerns or acute changes in patient status. Admission and Anticipated Discharge Date Admission Date: November 10, 2020 Subjective Patient examined this AM, sitting up at bedside. She reports she continues to have pain to left flank area. Has been requiring IV Morphine for pain control. Denies right-sided flank or abdominal pain. Tearful during periods of exam. Denies fevers or chills. Reports nausea due to not being able to eat/drink. Denies vomiting. Denies dysuria or hematuria. Does note concentrated/dark urine. No stone passage since admission. Has been NPO since midnight. Chart review: Afebrile. Wbc 9.69 Hgb 10.7 Creatinine 0.94 Urine culture pending. Blood cultures pending. Patient receiving empiric IV Ceftriaxone. Denies additional urologic concerns today. Review of Systems Constitutional: as per Subjective / HPI; no fever and no chills Gastrointestinal: as per Subjective / HPI and + nausea; no vomiting Genitourinary: as per Subjective / HPI Physical Exam Constitutional: well developed, well nourished and cooperative; not ill ap pearing Respiratory: normal respiratory effort and able to speak in complete sentences; no respiratory distress and no audible wheezes Gastrointestinal (Abdomen): Inspection/Auscultation: abdomen normal to inspection () Percussion/Palpation: no guarding Psychiatric: Orientation: alert, oriented x 3 and cooperative Tearful at times during exam. Results & Data ([facility]) Vital Signs (Past 12 Hours) Vital Signs Temp Pulse Pulse Resp BP Pulse Ox 11/11/20 08:01 36.8 C 89 16 123/79 98 11/11/20 01:20 36.8 C 94 H 18 127/81 98 11/11/20 01:07 103 H 16 123/76 99 11/10/20 23:40 103 H 18 142/79 H 96 PG Care Time/CCT Total # of Minutes Spent Total Time Spent with Patient: Total time spent is greater than 50% in coordination of care (as documented) at patient's floor/unit and/or counseling patient: Coding Level of Care Code 35416 Subseq Hosp Care Lvl 2 Diagnoses Left flank pain R10.9 Nephrolithiasis N20.0
--- NOTE | 2020-11-11 13:19 | Hospitalist Progress Note ---
Date of Service November 11, 2020 Assessment & Plan (1) Kidney stone complicating : Plan: 30 yo at 35 6/7 weeks gestation with a pMHx. of anxiety, depression, Crohn disease, PCOS, PROM, and allergic rhinitis current complicated by prior UTI along with a velamentous cord who is here with left back pain found to have a non obstructing 6mm stone and a concerning contaminated urine sample without urinary symptoms. Intractable Left side back pain - Renal Nephrolithiasis -ultrasound with moderate symmetric hydroureteronephrosis, 6 mm nonobstructing left lower pole stone -cr. 0.94 - NSS IVF running at 125/hr. - Tylenol and Morphine for pain control - Urology was consulted - no indication for a urologic procedure at this time and if the patient becomes septic or develops renal failure they rec. transfer to tertiary care center - continue to follow BMP Concern for pyelonephritis vs. UTI vs. asymptomatic bacteria - UA with 2+ blood, trace LCE, WBC, 20-30 Epithelial cells, 1+ bacteria - Ceftriaxone started in ER - continue 1G daily - pending urine culture currently negative 11/11 - obtained blood cultures which were pre-treated with Ceftriaxone currently negative 11/11 Hx. of PROM prior admission to OB on 11/07 with category 1 FHT and no cervical change with occasional contractions at that time - no current contractions, LOF, bleeding, good movement (per patient) - continue [place] started for prior PROM - continue to monitor patient for contractions, LOF, or bleeding -OB consulted not concerned for labor at this time Diarrhea - ordered c. diff. given recent abx. for UTI Code: Full Diet: regular (OB) DVT: SCD's (2) Velamentous insertion of umbilical cord: (3) : (4) Crohns disease: (5) Depression with anxiety: Admission and Anticipated Discharge Date Admission Date: November 10, 2020 Supervising Physician Co-Signing Physician Notes Resident Physician Supervision Note: I independently interviewed and examined the patient and verified the real history and physical, reviewed labs and image studies and agree with resident Dr. Michel findings and care plan. Subjective 30yo Female at 35 6/7wks PMH anxiety/depression, crohn's, PCOS, UTI, prev PROM here for L flank pain. She states this has never happened before, still feels baby moving, no vaginal fluid leakage, no pain on urination, no blood in urine/stool. States changing position doesn't help pain, pain worse with sneezing/breathing deeply. States her crohn's flares do not feel like this. She states she doesn't think she's urinating as often since she was placed NPO overnight. Also states last night her smoked marijuana in the house, she slept on the couch, unsure if this contributed. Patient seen at bedside tearful, describes pain currently as 9/10 on morphine. She would like to see baby imaging/FHR. Review of Systems Review of Systems: Positive back pain, nausea Negative fever chills Negative headache dizziness Negative chest pain palpitations SOB Negative vomitting diarrhea constipation Negative numbness tingling rash swelling Physical Exam Physical Exam: General: Well appearing, age appropriate Heart: RRR, +S1 S2, no murmurs/gallops/rubs Lungs: cta b/l, no wheezes/rales/rhonchi, some pain on deep inhalation Abd: , positive left flank pain, some discomfort epigastric region where baby kicks, negative suprapubic pain Extremities: no swelling, no rashes Results & Data Results & Data ([facility]) Vital Signs (Past 12 Hours) Vital Signs Temp Pulse Resp BP Pulse Ox 11/11/20 08:01 36.8 C 89 16 123/79 98 11/11/20 01:20 36.8 C 94 H 18 127/81 98 Laboratory Results 11/11/20 11/11/20 11/10/20 Range/Units 05:40 05:40 21:50 WBC 9.69 (4.8-10.8) K/uL RBC 3.74 L (4.2-5.4) M/uL Hgb 10.7 L (12.0-16.0) g/dL Hct 32.9 L (37-47) % MCV 88.0 (80-100) fL MCH 28.6 (25-34) pg MCHC 32.5 (32-36) g/dL RDW Std Deviation 46.6 H (36.4-46.3) fL RDW Coeff of Margaret 14.4 (11.5-14.5) % Plt Count 208 (130-400) K/uL MPV 9.7 (7.4-10.4) fL Immature Gran % (Auto) 0.6 % Neut % (Auto) 70.9 % Lymph % (Auto) 18.7 % Conway % (Auto) 9.2 % Eos % (Auto) 0.5 % Baso % (Auto) 0.1 % Neut # (Auto) 6.87 H (1.4-6.5) K/uL Lymph # (Auto) 1.81 (1.2-3.4) K/uL [place] # (Auto) 0.89 H (0.11-0.59) K/uL Eos # (Auto) 0.05 (0-0.5) K/uL Baso # (Auto) 0.01 (0-0.2) K/uL Immature Gran # (Auto) 0.06 H (0.00-0.02) K/uL Sodium 141 (136-145) mmol/L Potassium 3.3 L (3.5-5.1) mmol/L Chloride 112 H (98-107) mmol/L Carbon Dioxide 24 (21-32) mmol/L Anion Gap 5.0 (3-11) BUN 6 L (7-18) mg/dl Creatinine 0.94 (0.6-1.2) mg/dl Est Cr Clr Drug Dosing 111.0 ml/min Est GFR ( Amer) 95.0 ml/min Est GFR (Non-Af Amer) 82.0 ml/min BUN/Creatinine Ratio 6.0 L (10-20) Glucose 85 (70-99) mg/dl Calcium 8.3 L (8.5-10.1) mg/dl Total Bilirubin (0.2-1) mg/dl AST (15-37) U/L ALT (12-78) U/L Alkaline Phosphatase (45-117) U/L Total Protein (6.4-8.2) gm/dl Albumin (3.4-5.0) gm/dl Globulin (2.5-4.0) gm/dl Albumin/Globulin Ratio (0.9-2) Lipase (73-393) U/L Urine Color Urine Appearance (Clear) Urine pH (4.5-7.5) Ur Specific Barton (1.000-1.030) Urine Protein (Negative) Urine Glucose (UA) (Negative) Urine Ketones (Negative) Urine Blood (Negative) Urine Nitrite (Negative) Urine Bilirubin (Negative) Urine Urobilinogen (Negative) Ur Leukocyte Esterase (Negative) Urine WBC (Auto) (0-5) /hpf Urine RBC (Auto) (0-4) /hpf U Hyaline Cast (Auto) (0-5) /lpf U Epithel Cells (Auto) (0-5) /lpf Urine Bacteria (Auto) (Negative) COVID-19 Eval Order SARS-CoV-2 (PCR) NEGATIVE (Negative) 11/10/20 11/10/20 11/10/20 Range/Units 21:50 18:51 18:51 WBC 9.75 (4.8-10.8) K/uL RBC 3.83 L (4.2-5.4) M/uL Hgb 11.5 L (12.0-16.0) g/dL Hct 33.6 L (37-47) % MCV 87.7 (80-100) fL MCH 30.0 (25-34) pg MCHC 34.2 (32-36) g/dL RDW Std Deviation 45.5 (36.4-46.3) fL RDW Coeff of Margaret 14.1 (11.5-14.5) % Plt Count 241 (130-400) K/uL MPV 9.9 (7.4-10.4) fL Immature Gran % (Auto) 0.5 % Neut % (Auto) 73.6 % Lymph % (Auto) 16.7 % Conway % (Auto) 8.6 % Eos % (Auto) 0.5 % Baso % (Auto) 0.1 % Neut # (Auto) 7.17 H (1.4-6.5) K/uL Lymph # (Auto) 1.63 (1.2-3.4) K/uL [place] # (Auto) 0.84 H (0.11-0.59) K/uL Eos # (Auto) 0.05 (0-0.5) K/uL Baso # (Auto) 0.01 (0-0.2) K/uL Immature Gran # (Auto) 0.05 H (0.00-0.02) K/uL Sodium 138 (136-145) mmol/L Potassium 3.0 L (3.5-5.1) mmol/L Chloride 110 H (98-107) mmol/L Carbon Dioxide 21 (21-32) mmol/L Anion Gap 7.0 (3-11) BUN 7 (7-18) mg/dl Creatinine 0.93 (0.6-1.2) mg/dl Est Cr Clr Drug Dosing 112.9 ml/min Est GFR ( Amer) 96.3 ml/min Est GFR (Non-Af Amer) 83.1 ml/min BUN/Creatinine Ratio 7.1 L (10-20) Glucose 141 H (70-99) mg/dl Calcium 8.9 (8.5-10.1) mg/dl Total Bilirubin 0.3 (0.2-1) mg/dl AST 18 (15-37) U/L ALT 24 (12-78) U/L Alkaline Phosphatase 169 H (45-117) U/L Total Protein 6.9 (6.4-8.2) gm/dl Albumin 2.3 L (3.4-5.0) gm/dl Globulin 4.6 H (2.5-4.0) gm/dl Albumin/Globulin Ratio 0.5 L (0.9-2) Lipase 129 (73-393) U/L Urine Color Urine Appearance (Clear) Urine pH (4.5-7.5) Ur Specific Barton (1.000-1.030) Urine Protein (Negative) Urine Glucose (UA) (Negative) Urine Ketones (Negative) Urine Blood (Negative) Urine Nitrite (Negative) Urine Bilirubin (Negative) Urine Urobilinogen (Negative) Ur Leukocyte Esterase (Negative) Urine WBC (Auto) (0-5) /hpf Urine RBC (Auto) (0-4) /hpf U Hyaline Cast (Auto) (0-5) /lpf U Epithel Cells (Auto) (0-5) /lpf Urine Bacteria (Auto) (Negative) COVID-19 Eval Order Covid19 at [facility] SARS-CoV-2 (PCR) (Negative) 11/10/20 Range/Units 18:50 WBC (4.8-10.8) K/uL RBC (4.2-5.4) M/uL Hgb (12.0-16.0) g/dL Hct (37-47) % MCV (80-100) fL MCH (25-34) pg MCHC (32-36) g/dL RDW Std Deviation (36.4-46.3) fL RDW Coeff of Margaret (11.5-14.5) % Plt Count (130-400) K/uL MPV (7.4-10.4) fL Immature Gran % (Auto) % Neut % (Auto) % Lymph % (Auto) % Conway % (Auto) % Eos % (Auto) % Baso % (Auto) % Neut # (Auto) (1.4-6.5) K/uL Lymph # (Auto) (1.2-3.4) K/uL Conway # (Auto) (0.11-0.59) K/uL Eos # (Auto) (0-0.5) K/uL Baso # (Auto) (0-0.2) K/uL Immature Gran # (Auto) (0.00-0.02) K/uL Sodium (136-145) mmol/L Potassium (3.5-5.1) mmol/L Chloride (98-107) mmol/L Carbon Dioxide (21-32) mmol/L Anion Gap (3-11) BUN (7-18) mg/dl Creatinine (0.6-1.2) mg/dl Est Cr Clr Drug Dosing ml/min Est GFR ( Amer) ml/min Est GFR (Non-Af Amer) ml/min BUN/Creatinine Ratio (10-20) Glucose (70-99) mg/dl Calcium (8.5-10.1) mg/dl Total Bilirubin (0.2-1) mg/dl AST (15-37) U/L ALT (12-78) U/L Alkaline Phosphatase (45-117) U/L Total Protein (6.4-8.2) gm/dl Albumin (3.4-5.0) gm/dl Globulin (2.5-4.0) gm/dl Albumin/Globulin Ratio (0.9-2) Lipase (73-393) U/L Urine Color Yellow Urine Appearance Clear (Clear) Urine pH 7.0 (4.5-7.5) Ur Specific Barton 1.006 (1.000-1.030) Urine Protein Negative (Negative) Urine Glucose (UA) Negative (Negative) Urine Ketones Negative (Negative) Urine Blood 2+ H (Negative) Urine Nitrite Negative (Negative) Urine Bilirubin Negative (Negative) Urine Urobilinogen Negative (Negative) Ur Leukocyte Esterase Trace H (Negative) Urine WBC (Auto) 5-10 H (0-5) /hpf Urine RBC (Auto) 0-4 (0-4) /hpf U Hyaline Cast (Auto) 1-5 (0-5) /lpf U Epithel Cells (Auto) 20-30 H (0-5) /lpf Urine Bacteria (Auto) 1+ H (Negative) COVID-19 Eval Order SARS-CoV-2 (PCR) (Negative) Diagnostic Findings Impressions Renal Ultrasound 11/10/20 18:46 US renal/blad retro comp HISTORY: 30 years-old Female l flank pain acute left-sided flank pain with COMPARISON: None TECHNIQUE: Multiple real-time sonographic images of the kidneys and urinary bladder were obtained assessing grayscale appearance and color flow FINDINGS: The right kidney measures 12.4 cm in length and demonstrates moderate hydronephrosis. No renal calculi or suspicious mass lesion. Unremarkable urinary bladder. Only the right ureteral jet identified. head causes mass effect upon the urinary bladder. The left kidney measures 12.7 cm in length and also demonstrates moderate hydronephrosis. A 6 mm nonobstructing calculus is noted within the lower pole left kidney. IMPRESSION: 1. Moderate symmetric bilateral hydroureteronephrosis. 2. 6 mm nonobstructing left renal calculus. 3. Nonvisualization of the left ureteral jet. ACT 112: Negative or not required by law. The above report was generated using voice recognition software. It may contain grammatical, syntax or spelling errors. Electronically signed by: Todd Cabrera M.D. 11/10/2020 8:08 PM Medications Administered Current Inpatient Medications Acetaminophen (Acetaminophen 500 Mg Tab) 1,000 mg PO Q6H PRN PRN Reason: Pain Stop: 12/11/20 01:49 Albuterol (Albuterol Hfa 8 Gm Inhaler) 2 puffs INH QID PRN PRN Reason: shortness of breath or wheezing Stop: 12/11/20 01:25 Sodium Chloride (Nss 1000ml) 1,000 mls @ 125 mls/hr IV .Q8H [facility] Stop: 11/11/20 17:25 Last Admin: 11/11/20 10:02 Dose: 125 mls/hr Documented by: Ceftriaxone Sodium 2,000 mg/ (Dextrose) 70 mls @ 100 mls/hr IV Q24H [facility]; Protocol Stop: 11/21/20 20:59 Miscellaneous (Latonya~Order Awaiting Action) 1 ea N/A QS [facility] Stop: 12/14/20 07:59 Morphine Sulfate (Morphine Sulfate 2 Mg/Ml Carp) 2 mg IV Q3H PRN PRN Reason: Pain (1,2,3,4,5) & Pre PT Stop: 11/25/20 01:25 Morphine Sulfate (Morphine Sulfate 4 Mg/Ml 1 Ml Carp\Vial) 4 mg IV Q3H PRN PRN Reason: Pain (6,7,8,9,10) Stop: 11/25/20 01:25 Last Admin: 11/11/20 08:41 Dose: 4 mg Documented by: Ondansetron HCl (Ondansetron Inj 2 Mg/Ml 2 Ml Vial) 4 mg IV Q6H PRN PRN Reason: Nausea And Vomiting Stop: 12/11/20 10:18 Prenat Multivit/[place]/Iron/Folic Ac ( Vitamin 1 Tab) 1 tab PO HS [facility] Stop: 12/11/20 20:59 Resident Activity Tracking Resident Involvement: Resident Care Provided Care Provided: Adult Hospital Medicine
[2020-11-11] MEDS: ONDANSETRON INJ 2 MG/ML 2 ML VIAL IV PRN (17:46)
[2020-11-11] MEDS: cefTRIAXone SODIUM 2,000 MG in DEXTROSE 5% 50 ML IV SCH (21:57)
[2020-11-11] MEDS: PRENATAL VITAMIN 1 TAB PO SCH (21:57)
--- NOTE | 2020-11-12 05:33 | Billing Data ---
Date of Service November 12, 2020 Coding Level of Care Code 83637 Initial Inpt Care Lvl 3
[2020-11-12] MEDS: MoRPHine SULFATE 4 MG/ML 1 ML CARP\\VIAL IV PRN ×4 (06:45→20:19)
[2020-11-12 09:58] LABS: Hematocrit (blood only) 31.1 % (37-47); Hemoglobin 10.4 g/dL (12.0-16.0); Mean Corpuscular Hemoglobin 29.1 pg (25-34); Mean Corpuscular Hgb Conc 33.4 g/dL (32-36); Mean Corpuscular Volume 87.1 fL (80-100); Mean Platelet Volume 9.8 fL (7.4-10.4); Platelet Count 197 K/uL (130-400); RDW Standard Deviation 44.7 fL (36.4-46.3); Red Blood Count 3.57 M/uL (4.2-5.4); White Blood Count 10.02 K/uL (4.8-10.8)
[2020-11-12] MEDS: ONDANSETRON INJ 2 MG/ML 2 ML VIAL IV PRN ×2 (10:11→18:14)
[2020-11-12 10:35] LABS: BUN Creatinine Ratio 6.7 (10-20); Calcium 8.5 mg/dl (8.5-10.1); Creatinine Clr Calc Pharmacy 122.7 ml/min; Est GFR (African American) 107.3 ml/min; Est GFR (Non-African American) 92.6 ml/min; Potassium 3.3 mmol/L (3.5-5.1)
--- NOTE | 2020-11-12 13:24 | Hospitalist Progress Note ---
Date of Service November 12, 2020 Assessment & Plan (1) Kidney stone complicating : Plan: 30 yo at 35 6/7 weeks gestation with a pMHx. of anxiety, depression, Crohn disease, PCOS, PROM, and allergic rhinitis current complicated by prior UTI along with a velamentous cord who is here with left back pain found to have a non obstructing 6mm stone and a concerning contaminated urine sample without urinary symptoms. Nephrolithiasis ultrasound with moderate symmetric hydroureteronephrosis, 6 mm nonobstructing left lower pole stone - cr. 0.85 WNL, vitals stable overnight - NSS IVF running at 125/hr. - Tylenol and Morphine for pain control - Urology was consulted - no indication for a urologic procedure at this time and if the patient becomes septic or develops renal failure they rec. transfer to tertiary care center - continue to follow BMP - continue straining urine Concern for pyelonephritis vs. UTI vs. asymptomatic bacteria - UA with 2+ blood, trace LCE, WBC, 20-30 Epithelial cells, 1+ bacteria - Ceftriaxone started in ER - continue 2G daily - urine culture negative 11/12 - obtained blood cultures which were pre-treated with Ceftriaxone Hx. of PROM prior admission to OB on 11/07 with category 1 FHT and no cervical change with occasional contractions at that time - no current contractions, LOF, bleeding, good movement (per patient) - continue [place] started for prior PROM - continue to monitor patient for contractions, LOF, or bleeding Diarrhea - ordered c. diff. given recent abx. for UTI Code: Full Diet: regular (OB) DVT: SCD's (2) Velamentous insertion of umbilical cord: (3) : (4) Crohns disease: (5) Depression with anxiety: Admission and Anticipated Discharge Date Admission Date: November 10, 2020 Supervising Physician Co-Signing Physician Notes Resident Physician Supervision Note: I independently interviewed and examined the patient and verified the real history and physical, reviewed labs and image studies and agree with resident Dr. Michel findings and care plan. Subjective 30yo Female at 35 6/7wks PMH anxiety/depression, crohn's, PCOS, UTI, prev PROM here for L flank pain. Patient seen at bedside with FHR monitor attached, currently still in pain. She had recieved 6 doses morphine yesterday and 2 doses today. She states otherwise no SOB, CP. She states she does not have much appetite due to nausea, says sandi helps. Patient states urology told her about a possible kidney stone they may have not picked up on ultrasound causing her pain, understands we are still straining her urine for the stone. Patient understands she should continue drinking fluids. Review of Systems Review of Systems: Positive L flank pain Negative fever chills Negative headache dizziness Negative chest pain palpitations SOB Negative nausea vomitting diarrhea constipation Negative numbness tingling rash swelling Physical Exam Physical Exam: General: Well appearing, age appropriate Heart: RRR, +S1 S2, no murmurs/gallops/rubs Lungs: cta b/l, no wheezes/rales/rhonchi Abd: L sided flank pain Extremities: no swelling, no rashes Results & Data Results & Data ([facility]) Vital Signs (Past 12 Hours) Vital Signs Temp Pulse Resp BP Pulse Ox 11/12/20 06:36 36.9 C 92 H 16 126/81 96 Laboratory Results 11/12/20 11/12/20 Range/Units 09:26 09:26 WBC 10.02 (4.8-10.8) K/uL RBC 3.57 L (4.2-5.4) M/uL Hgb 10.4 L (12.0-16.0) g/dL Hct 31.1 L (37-47) % MCV 87.1 (80-100) fL MCH 29.1 (25-34) pg MCHC 33.4 (32-36) g/dL RDW Std Deviation 44.7 (36.4-46.3) fL RDW Coeff of Margaret 14.0 (11.5-14.5) % Plt Count 197 (130-400) K/uL MPV 9.8 (7.4-10.4) fL Sodium 136 (136-145) mmol/L Potassium 3.3 L (3.5-5.1) mmol/L Chloride 108 H (98-107) mmol/L Carbon Dioxide 21 (21-32) mmol/L Anion Gap 7.0 (3-11) BUN 6 L (7-18) mg/dl Creatinine 0.85 (0.6-1.2) mg/dl Est Cr Clr Drug Dosing 122.7 ml/min Est GFR ( Amer) 107.3 ml/min Est GFR (Non-Af Amer) 92.6 ml/min BUN/Creatinine Ratio 6.7 L (10-20) Glucose 101 H (70-99) mg/dl Calcium 8.5 (8.5-10.1) mg/dl Medications Administered Current Inpatient Medications Acetaminophen (Acetaminophen 500 Mg Tab) 1,000 mg PO Q6H PRN PRN Reason: Pain Stop: 12/11/20 01:49 Albuterol (Albuterol Hfa 8 Gm Inhaler) 2 puffs INH QID PRN PRN Reason: shortness of breath or wheezing Stop: 12/11/20 01:25 Ceftriaxone Sodium 2,000 mg/ (Dextrose) 70 mls @ 100 mls/hr IV Q24H [facility]; Protocol Stop: 11/21/20 20:59 Last Infusion: 11/11/20 22:46 Dose: Infused Documented by: Miscellaneous (Latonya~Order Awaiting Action) 1 ea N/A QS [facility] Stop: 12/14/20 07:59 Morphine Sulfate (Morphine Sulfate 2 Mg/Ml Carp) 2 mg IV Q3H PRN PRN Reason: Pain (1,2,3,4,5) & Pre PT Stop: 11/25/20 01:25 Morphine Sulfate (Morphine Sulfate 4 Mg/Ml 1 Ml Carp\Vial) 4 mg IV Q3H PRN PRN Reason: Pain (6,7,8,9,10) Stop: 11/25/20 01:25 Last Admin: 11/12/20 11:25 Dose: 4 mg Documented by: Ondansetron HCl (Ondansetron Inj 2 Mg/Ml 2 Ml Vial) 4 mg IV Q6H PRN PRN Reason: Nausea And Vomiting Stop: 12/11/20 10:18 Last Admin: 11/12/20 10:11 Dose: 4 mg Documented by: Prenat Multivit/[place]/Iron/Folic Ac ( Vitamin 1 Tab) 1 tab PO HS [facility] Stop: 12/11/20 20:59 Last Admin: 11/11/20 21:57 Dose: 1 tab Documented by: Resident Activity Tracking Resident Involvement: Resident Care Provided Care Provided: Adult Hospital Medicine
[2020-11-12] MEDS: PRENATAL VITAMIN 1 TAB PO SCH (20:19)
[2020-11-12] MEDS: cefTRIAXone SODIUM 2,000 MG in DEXTROSE 5% 50 ML IV SCH (20:19)
[2020-11-12] MEDS: MICONAZOLE NITRATE 2% VAG CR 45 GM TUBE PV SCH (21:50)
[2020-11-13] MEDS: MoRPHine SULFATE 4 MG/ML 1 ML CARP\\VIAL IV PRN ×3 (01:26→11:42)
[2020-11-13 06:25] LABS: Hematocrit (blood only) 30.4 % (37-47); Hemoglobin 10.1 g/dL (12.0-16.0); Mean Corpuscular Hemoglobin 28.9 pg (25-34); Mean Corpuscular Hgb Conc 33.2 g/dL (32-36); Mean Corpuscular Volume 87.1 fL (80-100); Mean Platelet Volume 9.7 fL (7.4-10.4); Platelet Count 180 K/uL (130-400); RDW Coefficient of Variation 14.1 % (11.5-14.5); RDW Standard Deviation 44.8 fL (36.4-46.3); Red Blood Count 3.49 M/uL (4.2-5.4); White Blood Count 8.11 K/uL (4.8-10.8)
[2020-11-13 07:08] LABS: BUN Creatinine Ratio 8.4 (10-20); Creatinine Clr Calc Pharmacy 124.2 ml/min; Est GFR (African American) 108.9 ml/min; Est GFR (Non-African American) 93.9 ml/min; Potassium 3.4 mmol/L (3.5-5.1)
[2020-11-13] MEDS: ONDANSETRON INJ 2 MG/ML 2 ML VIAL IV PRN ×2 (08:15→15:36)
[2020-11-13] MEDS ORDERED: bisacodyL 5 MG TABEC PO PRN (08:19)
[2020-11-13] MEDS ORDERED: POLYETHYLENE (MIRALAX) 17 GM PACK PO PRN (08:21)
[2020-11-13] MEDS: DOCUSATE SODIUM 100 MG CAP PO SCH ×2 (09:17→19:40)
--- NOTE | 2020-11-13 15:07 | Hospitalist Progress Note ---
Date of Service November 13, 2020 Assessment & Plan (1) Kidney stone complicating : Plan: 30 yo at 35 6/7 weeks gestation with a pMHx. of anxiety, depression, Crohn disease, PCOS, PROM, and allergic rhinitis current complicated by prior UTI along with a velamentous cord who is here with left back pain found to have a non obstructing 6mm stone and a concerning contaminated urine sample without urinary symptoms. Nephrolithiasis ultrasound with moderate symmetric hydroureteronephrosis, 6 mm nonobstructing left lower pole stone - cr. 0.85 WNL, vitals stable overnight - NSS IVF running at 125/hr. - Tylenol and Morphine for pain control - Urology was consulted - no indication for a urologic procedure at this time and if the patient becomes septic or develops renal failure they rec. transfer to tertiary care center - continue to follow BMP - continue straining urine - Pain possibly msk? Concern for pyelonephritis vs. UTI vs. asymptomatic bacteria - UA with 2+ blood, trace LCE, WBC, 20-30 Epithelial cells, 1+ bacteria - Ceftriaxone started in ER - Has completed 3 doses. With neg urine culture but persistent pain is concerning. To reassess in am and consider d/c abx. Hx. of PROM prior admission to OB on 11/07 with category 1 FHT and no cervical change with occasional contractions at that time - no current contractions, LOF, bleeding, good movement (per patient) - continue [place] started for prior PROM - continue to monitor patient for contractions, LOF, or bleeding Diarrhea - ordered c. diff. given recent abx. for UTI Code: Full Diet: regular (OB) DVT: SCD's (2) Velamentous insertion of umbilical cord: (3) : (4) Crohns disease: (5) Depression with anxiety: Admission and Anticipated Discharge Date Admission Date: November 10, 2020 Supervising Physician Co-Signing Physician Notes Resident Physician Supervision Note: I independently interviewed and examined the patient and verified the real history and physical, reviewed labs and image studies and agree with resident Dr. Michel findings and care plan. Subjective 30yo Female at 36 wks PMH anxiety/depression, crohn's, PCOS, UTI, prev PROM here for L flank pain. Patient seen at bedside seated upright. She had recieved 5 doses of morphine yesterday, currently rates pain as 6/10, left flank pain unchanging with movement position or palpation, has not traveled or diminished in intensity. Patient states baby is still moving, no fluid leak vaginally. She complains of itching in groin area secondary to yeast infection. Has been straining urine, have not found stone. Patient understands she is contraindicated for CT or xray due to . She states she has been drinking at least a liter daily, does not have much appetite secondary to pain. Review of Systems Review of Systems: Negative fever chills Negative headache dizziness Negative chest pain palpitations SOB Negative nausea vomitting diarrhea constipation Negative numbness tingling rash swelling Physical Exam Physical Exam: General: Well appearing, age appropriate, in distress Heart: RRR, +S1 S2, no murmurs/gallops/rubs Lungs: cta b/l, no wheezes/rales/rhonchi Abd: L sided flank pain unchanging with palpation, Skin: dry, no rashes Musculoskeletal: tight paraspinal muscles, pain unchanged with palpation Extremities: no swelling Results & Data Results & Data ([facility]) Vital Signs (Past 12 Hours) Vital Signs Temp Pulse Resp BP Pulse Ox 11/13/20 06:33 36 C L 85 16 107/69 97 Laboratory Results 11/13/20 11/13/20 Range/Units 05:46 05:46 WBC 8.11 (4.8-10.8) K/uL RBC 3.49 L (4.2-5.4) M/uL Hgb 10.1 L (12.0-16.0) g/dL Hct 30.4 L (37-47) % MCV 87.1 (80-100) fL MCH 28.9 (25-34) pg MCHC 33.2 (32-36) g/dL RDW Std Deviation 44.8 (36.4-46.3) fL RDW Coeff of Margaret 14.1 (11.5-14.5) % Plt Count 180 (130-400) K/uL MPV 9.7 (7.4-10.4) fL Sodium 139 (136-145) mmol/L Potassium 3.4 L (3.5-5.1) mmol/L Chloride 107 (98-107) mmol/L Carbon Dioxide 23 (21-32) mmol/L Anion Gap 9.0 (3-11) BUN 7 (7-18) mg/dl Creatinine 0.84 (0.6-1.2) mg/dl Est Cr Clr Drug Dosing 124.2 ml/min Est GFR ( Amer) 108.9 ml/min Est GFR (Non-Af Amer) 93.9 ml/min BUN/Creatinine Ratio 8.4 L (10-20) Glucose 91 (70-99) mg/dl Calcium 9.0 (8.5-10.1) mg/dl Medications Administered Current Inpatient Medications Acetaminophen (Acetaminophen 500 Mg Tab) 1,000 mg PO Q6H PRN PRN Reason: Pain Stop: 12/11/20 01:49 Albuterol (Albuterol Hfa 8 Gm Inhaler) 2 puffs INH QID PRN PRN Reason: shortness of breath or wheezing Stop: 12/11/20 01:25 Bisacodyl (Bisacodyl 5 Mg Tabec) 5 mg PO TID PRN PRN Reason: Constipation Stop: 12/13/20 08:18 Docusate Sodium (Docusate Sodium 100 Mg Cap) 100 mg PO BID [facility] Stop: 12/13/20 08:59 Last Admin: 11/13/20 09:17 Dose: 100 mg Documented by: Ceftriaxone Sodium 2,000 mg/ (Dextrose) 70 mls @ 100 mls/hr IV Q24H [facility]; Protocol Stop: 11/21/20 20:59 Last Infusion: 11/12/20 21:09 Dose: Infused Documented by: Miconazole Nitrate (Miconazole Nitrate 2% Vag Cr 45 Gm Tube) 1 appln PV HS [facility] Stop: 11/18/20 21:01 Last Admin: 11/12/20 21:50 Dose: 1 appln Documented by: Miscellaneous (Latonya~Order Awaiting Action) 1 ea N/A QS [facility] Stop: 12/14/20 07:59 Morphine Sulfate (Morphine Sulfate 2 Mg/Ml Carp) 2 mg IV Q3H PRN PRN Reason: Pain (1,2,3,4,5) & Pre PT Stop: 11/25/20 01:25 Morphine Sulfate (Morphine Sulfate 4 Mg/Ml 1 Ml Carp\Vial) 4 mg IV Q3H PRN PRN Reason: Pain (6,7,8,9,10) Stop: 11/25/20 01:25 Last Admin: 11/13/20 11:42 Dose: 4 mg Documented by: Ondansetron HCl (Ondansetron Inj 2 Mg/Ml 2 Ml Vial) 4 mg IV Q6H PRN PRN Reason: Nausea And Vomiting Stop: 12/11/20 10:18 Last Admin: 11/13/20 08:15 Dose: 4 mg Documented by: Polyethylene Glycol (Polyethylene (Miralax) 17 Gm Pack) 17 gm PO DAILY PRN PRN Reason: Constipation Stop: 12/13/20 08:20 Prenat Multivit/[place]/Iron/Folic Ac ( Vitamin 1 Tab) 1 tab PO HS [facility] Stop: 12/11/20 20:59 Last Admin: 11/12/20 20:19 Dose: 1 tab Documented by: Resident Activity Tracking Resident Involvement: Resident Care Provided Care Provided: Adult Hospital Medicine
[2020-11-13] MEDS: MoRPHine SULFATE 2 MG/ML CARP IV PRN ×2 (15:36→19:41)
[2020-11-13] MEDS: PRENATAL VITAMIN 1 TAB PO SCH (19:40)
[2020-11-13] MEDS: cefTRIAXone SODIUM 2,000 MG in DEXTROSE 5% 50 ML IV SCH (19:42)
[2020-11-13] MEDS: MICONAZOLE NITRATE 2% VAG CR 45 GM TUBE PV SCH (19:42)
[2020-11-13] MEDS: ACETAMINOPHEN 500 MG TAB PO PRN (22:19)
[2020-11-14] MEDS: MoRPHine SULFATE 2 MG/ML CARP IV PRN ×5 (03:01→20:52)
[2020-11-14] MEDS: DOCUSATE SODIUM 100 MG CAP PO SCH ×2 (08:02→20:45)
[2020-11-14 08:28] LABS: Calcium 8.8 mg/dl (8.5-10.1); Creatinine Clr Calc Pharmacy 121.3 ml/min; Est GFR (African American) 105.8 ml/min; Est GFR (Non-African American) 91.3 ml/min; Potassium 3.4 mmol/L (3.5-5.1)
[2020-11-14 09:18] LABS: Hematocrit (blood only) 30.7 % (37-47); Mean Corpuscular Hemoglobin 29.2 pg (25-34); Mean Corpuscular Hgb Conc 32.6 g/dL (32-36); Mean Corpuscular Volume 89.8 fL (80-100); Platelet Count 199 K/uL (130-400); RDW Coefficient of Variation 13.8 % (11.5-14.5); RDW Standard Deviation 46.1 fL (36.4-46.3); Red Blood Count 3.42 M/uL (4.2-5.4); White Blood Count 7.33 K/uL (4.8-10.8)
--- NOTE | 2020-11-14 11:39 | Communication Note ---
Date of Service: November 14, 2020 36+ wk iup, nst reactive. pain mgmt with kidney stone. [employer] Miscellaneous Codes Misx Procedure Codes 89062 NST
[2020-11-14] MEDS: ONDANSETRON INJ 2 MG/ML 2 ML VIAL IV PRN (12:14)
[2020-11-14] MEDS: ACETAMINOPHEN 500 MG TAB PO PRN (12:23)
--- NOTE | 2020-11-14 14:01 | Hospitalist Progress Note ---
Date of Service November 14, 2020 Assessment & Plan (1) Kidney stone complicating : Plan: 30 yo at 36 weeks gestation with a pMHx. of anxiety, depression, Crohn disease, PCOS, PROM, and allergic rhinitis current complicated by prior UTI along with a velamentous cord who is here with left back pain. Musculoskeletal Dysfunction of Pelvis -Patient was positive for pain on palpation of piriformis -performed OMT muscle energy and counterstrain, patient expressed improvement of pain after treatment -patient educated on exercises to perform to improve her dysfunction at home -will reassess in the morning Constipation -ongoing since patient was admitted - patient complains of rectal bleeding Hg 10.1 --> 10, more likely hemorrhoids -patient recieving PRN morphine 5 doses daily -recieved stool softeners and laxatives yesterday with no improvement -given 3 doses miralax, if no improvement in 3 hrs will give another 3 doses Nephrolithiasis -ultrasound with moderate symmetric hydroureteronephrosis, 6 mm nonobstructing left lower pole stone - UA contaminated positive for blood, Ucx negative - cr. 0.85 WNL, vitals stable - NSS IVF running at 125/hr in ED, d/c'd - Tylenol and Morphine for pain control - Urology was consulted - no indication for a urologic procedure at this time and if the patient becomes septic or develops renal failure they rec. transfer to tertiary care center - continue to follow BMP - continue straining urine - consider repeat ultrasound to check for change in position of stone Concern for pyelonephritis vs. UTI vs. asymptomatic bacteria - UA with 2+ blood, trace LCE, WBC, 20-30 Epithelial cells, 1+ bacteria - Ceftriaxone started in ER - Has completed 3 doses. Neg urine culture. Abx d'c'd Hx. of PROM prior admission to OB on 11/07 with category 1 FHT and no cervical change with occasional contractions at that time - no current contractions, LOF, bleeding, good movement (per patient) - continue Latonya started for prior PROM - continue to monitor patient for contractions, LOF, or bleeding - NST 11/14 normal Diarrhea - ordered c. diff. given recent abx. for UTI Code: Full Diet: regular (OB) DVT: SCD's (2) Velamentous insertion of umbilical cord: (3) : (4) Crohns disease: (5) Depression with anxiety: Admission and Anticipated Discharge Date Admission Date: November 10, 2020 Supervising Physician Co-Signing Physician Notes I personally examined the patient and verified all real points of history and exam, discussed case, and agree with decision making with Dr Michel. left lower back pain unchnaged. not any better. Never CVA or radiation to groin. Also very constipated. Vitals noted, in general she is awake and alert pleasant but somewhat tearful. HEENT normocephalic atraumatic mucous membranes are moist. Breathing unlabored no accessory muscle use good effort. Skin shows no rashes no pallor or icterus. Neuro without focal deficits. Osteopathic structural/musculoskeletalleft sided pelvic musculature in the region of piriformis very high tone, very tender, decreased range of motionpost isometric relaxation done times multiple iterations, ligamentous articular strain done, and then counterstrain performed by Dr. Breen with my supervision. Patient tolerated well and noted improvement in her pain. Back paindoubt kidney stone related. Probably biomechanical. OMT as above. Likely exacerbated by constipation. Somatic dysfunctionpelvic regionOMT as above. ConstipationMiraLAX Home once bowels are moving and pain doing better. Subjective 30yo Female at 36 wks PMH anxiety/depression, crohn's, PCOS, UTI, prev PROM here for L flank pain. Patient seen seated at bedside, now complaining of anterior abdominal pain in RUQ and LUQ that radiates downwards on palpation as well as suprapubic pain, started last night after she took stool sof teners/laxatives, she states it might be due to her diarrhea. Her flank pain is currently unchanged. Patient also complained of rectal bleeding, stated it was definitely not vaginal bleeding, states bright red blood came out with small clots while straining over toilet. Patient denies any history of blood clots, or history of clots in her family. Patient seen this afternoon with Dr. Palacio. Patient understands that her pain may be musculoskeletal in origin and tolerated OMT well. Review of Systems Review of Systems: Positive constipation, abd pain, flank pain Negative fever chills Negative headache dizziness Negative chest pain palpitations SOB Negative nausea vomitting diarrhea Negative numbness tingling rash swelling Physical Exam Physical Exam: General: Well appearing, age appropriate, in distress Heart: RRR, +S1 S2, no murmurs/gallops/rubs Lungs: cta b/l, no wheezes/rales/rhonchi Abd: left flank pain, upper abd pain on palpation, suprapubic pain on palpation, piriformis pain on palpation Extremities: no swelling, no rashes Results & Data Results & Data ([facility]) Vital Signs (Past 12 Hours) Vital Signs Temp Pulse Resp BP Pulse Ox 11/14/20 07:12 36.6 C 82 18 110/70 95 Laboratory Results 11/14/20 11/14/20 Range/Units 06:06 06:02 WBC 7.33 (4.8-10.8) K/uL RBC 3.42 L (4.2-5.4) M/uL Hgb 10.0 L (12.0-16.0) g/dL Hct 30.7 L (37-47) % MCV 89.8 (80-100) fL MCH 29.2 (25-34) pg MCHC 32.6 (32-36) g/dL RDW Std Deviation 46.1 (36.4-46.3) fL RDW Coeff of Margaret 13.8 (11.5-14.5) % Plt Count 199 (130-400) K/uL MPV 10.0 (7.4-10.4) fL Sodium 138 (136-145) mmol/L Potassium 3.4 L (3.5-5.1) mmol/L Chloride 106 (98-107) mmol/L Carbon Dioxide 22 (21-32) mmol/L Anion Gap 10.0 (3-11) BUN 8 (7-18) mg/dl Creatinine 0.86 (0.6-1.2) mg/dl Est Cr Clr Drug Dosing 121.3 ml/min Est GFR ( Amer) 105.8 ml/min Est GFR (Non-Af Amer) 91.3 ml/min BUN/Creatinine Ratio 9.0 L (10-20) Glucose 81 (70-99) mg/dl Calcium 8.8 (8.5-10.1) mg/dl Medications Administered Current Inpatient Medications Acetaminophen (Acetaminophen 500 Mg Tab) 1,000 mg PO Q6H PRN PRN Reason: Pain Stop: 12/11/20 01:49 Last Admin: 11/14/20 12:23 Dose: 1,000 mg Documented by: Albuterol (Albuterol Hfa 8 Gm Inhaler) 2 puffs INH QID PRN PRN Reason: shortness of breath or wheezing Stop: 12/11/20 01:25 Bisacodyl (Bisacodyl 5 Mg Tabec) 5 mg PO TID PRN PRN Reason: Constipation Stop: 12/13/20 08:18 Last Admin: 11/13/20 19:40 Dose: 5 mg Documented by: Docusate Sodium (Docusate Sodium 100 Mg Cap) 100 mg PO BID [facility] Stop: 12/13/20 08:59 Last Admin: 11/14/20 08:02 Dose: 100 mg Documented by: Miconazole Nitrate (Miconazole Nitrate 2% Vag Cr 45 Gm Tube) 1 appln PV HS [facility] Stop: 11/18/20 21:01 Last Admin: 11/13/20 19:42 Dose: 1 appln Documented by: Miscellaneous (Latonya~Order Awaiting Action) 1 ea N/A QS [facility] Stop: 12/14/20 07:59 Last Admin: 11/14/20 17:23 Dose: Not Given Documented by: Morphine Sulfate (Morphine Sulfate 2 Mg/Ml Carp) 2 mg IV Q3H PRN PRN Reason: Pain (1,2,3,4,5) & Pre PT Stop: 11/25/20 01:25 Last Admin: 11/14/20 17:17 Dose: 2 mg Documented by: Morphine Sulfate (Morphine Sulfate 4 Mg/Ml 1 Ml Carp\Vial) 4 mg IV Q3H PRN PRN Reason: Pain (6,7,8,9,10) Stop: 11/25/20 01:25 Last Admin: 11/13/20 11:42 Dose: 4 mg Documented by: Ondansetron HCl (Ondansetron Inj 2 Mg/Ml 2 Ml Vial) 4 mg IV Q6H PRN PRN Reason: Nausea And Vomiting Stop: 12/11/20 10:18 Last Admin: 11/14/20 12:14 Dose: 4 mg Documented by: Polyethylene Glycol (Polyethylene (Miralax) 17 Gm Pack) 17 gm PO DAILY PRN PRN Reason: Constipation Stop: 12/13/20 08:20 Last Admin: 11/13/20 15:36 Dose: 17 gm Documented by: Polyethylene Glycol (Polyethylene (Miralax) 17 Gm Pack) 51 gm PO ONE PRN PRN Reason: Constipation Stop: 12/14/20 18:59 Prenat Multivit/[place]/Iron/Folic Ac ( Vitamin 1 Tab) 1 tab PO HS CORDELIA Stop: 12/11/20 20:59 Last Admin: 11/13/20 19:40 Dose: 1 tab Documented by: Resident Activity Tracking Resident Involvement: Resident Care Provided Care Provided: Adult Hospital Medicine
[2020-11-14] MEDS ORDERED: POLYETHYLENE (MIRALAX) 17 GM PACK PO STA (16:55)
--- NOTE | 2020-11-14 18:23 | Billing Data ---
Date of Service November 14, 2020 Coding Level of Care Code 50742 Subseq Hosp Care Lvl 2
--- NOTE | 2020-11-14 18:24 | Hospitalist Progress Note ---
Date of Service November 14, 2020 Assessment & Plan Admission and Anticipated Discharge Date Admission Date: November 10, 2020 Results & Data Results & Data ([facility]) Vital Signs (Past 12 Hours) Vital Signs Temp Pulse Resp BP BP Pulse Ox 11/14/20 15:43 98.2 F 84 18 108/66 96 11/14/20 07:12 97.9 F 82 18 110/70 95 PG Care Time/CCT Total # of Minutes Spent Total Time Spent with Patient: Total time spent is greater than 50% in coordination of care (as documented) at patient's floor/unit and/or counseling patient: Coding Level of Care Code None CPT Codes Musculoskeletal - Musculoskeletal: 82108 Osteo Michael Tr 1-2 Body regions ([id number])
[2020-11-14] MEDS ORDERED: POLYETHYLENE (MIRALAX) 17 GM PACK PO PRN (19:00)
[2020-11-14] MEDS: PRENATAL VITAMIN 1 TAB PO SCH (20:45)
[2020-11-14] MEDS: MICONAZOLE NITRATE 2% VAG CR 45 GM TUBE PV SCH (20:47)
[2020-11-15] MEDS: MoRPHine SULFATE 2 MG/ML CARP IV PRN (00:28)
[2020-11-15] MEDS: ONDANSETRON INJ 2 MG/ML 2 ML VIAL IV PRN (00:28)
[2020-11-15 06:35] LABS: Hematocrit (blood only) 31.4 % (37-47); Hemoglobin 10.3 g/dL (12.0-16.0); Mean Corpuscular Hemoglobin 28.7 pg (25-34); Mean Corpuscular Hgb Conc 32.8 g/dL (32-36); Mean Corpuscular Volume 87.5 fL (80-100); Mean Platelet Volume 9.7 fL (7.4-10.4); Platelet Count 217 K/uL (130-400); RDW Coefficient of Variation 13.8 % (11.5-14.5); RDW Standard Deviation 44.2 fL (36.4-46.3); Red Blood Count 3.59 M/uL (4.2-5.4); White Blood Count 9.12 K/uL (4.8-10.8)
[2020-11-15] MEDS ORDERED: POLYETHYLENE (MIRALAX) 17 GM PACK PO SCH (07:15)
[2020-11-15] MEDS ORDERED: POLYETHYLENE (MIRALAX) 17 GM PACK PO STA (08:20)
[2020-11-15] MEDS ORDERED: bisacodyL 10 MG SUPP PR PRN (09:38)
[2020-11-15] MEDS: DOCUSATE SODIUM 100 MG CAP PO SCH (11:37)
--- NOTE | 2020-11-15 14:40 | Discharge Summary ---
Date of Service November 15, 2020 Admission HPI Per Admitting Provider Barbara Mckeon is a 35 6/7 week gestation 30-year-old female with a past medical history of anxiety, depression, Crohn disease, PCOS, and allergic rhinitis with this complicated by a velamentous cord and prior UTI 2 months ago treated with Macrobid who is here with left back pain. She developed the pain on Saturday at 3AM in her left lower back. She waited and a couple hours later it worsened she went in to the ER with the concern that she was going into pre-term labor. She has a history of labor with her child being born at 32 weeks gestation. She was seen on the OB floor and found not to be in labor (reassuring FHT's, no cervical change) and it was thought at that time that the pain was from a kidney stone. Her pain is currently 7/10 after pain medication and was 10/10 prior. The pain is a dull constant pain along with a milton pain that last 5-10 minutes and is more severe but also dull. She has been taking Tylenol 1000 mg 3 times a day. She has improvement in her pain with hydration. The pain has made her nauseous and she has lost her appetite, eating very little since Saturday. Denies bleeding, fluid, increased discharge ER course: Morphine, 1L NSS, Ceftriaxone, KCL 40 meq Social: denies tobacco, ETOH, rec. drug use Admission Exam Per Admitting Provider Constitutional: well developed and well nourished Eyes: PERRL and EOM intact bilaterally ENMT: external ear and nose normal, oropharynx normal Neck: normal visual inspection Respiratory: normal respiratory effort, lungs clear to auscultation Cardiovascular: RRR, no murmur, no edema Gastrointestinal (Abdomen): - gravid, bowel sounds + Musculoskeletal: - CVA tenderness Skin: no rashes, warm and dry Neurologic: no focal motor deficits Psychiatric: Orientation: alert and oriented x 3 Eye Contact: good eye contact Speech: no pressured speech Affect: + tearful affect Principal Diagnosis Piriformis Syndrome Discharge Exam General: Well appearing, age appropriate, in distress Heart: RRR, +S1 S2, no murmurs/gallops/rubs Lungs: cta b/l, no wheezes/rales/rhonchi Abd: left flank pain improved, piriformis pain on palpation improved, abd pain improved. Fetus noted. Extremities: no swelling, no rashes Discharge Data Allergies Allergy/AdvReac Type Severity Reaction Status Date / Time sertraline Allergy Mild hives Verified 11/09/20 10:20 Citalopram Analogues Allergy hives Verified 11/09/20 10:20 nickel Allergy Rash Verified 11/09/20 10:20 Consultations 11/10/20 21:18 ED Decision to Admit Stat 11/11/20 02:53 Consult Urology Routine Ordered Studies 11/10/20 18:46 US renal/blad retro comp Stat Hospital Course (1) Kidney stone complicating : 30 yo at 36 weeks gestation with a pMHx. of anxiety, depression, Crohn disease, PCOS, PROM, and allergic rhinitis current complicated by prior UTI along with a velamentous cord who is here with left back pain. Musculoskeletal Dysfunction of Pelvis Patient was positive for pain on palpation of piriformis. Performed OMT muscle energy and counterstrain, patient expressed improvement of pain after treatment. Patient educated on exercises to perform to improve her dysfunction at home. Constipation Ongoing since patient was admitted. Patient complains of rectal bleeding Hg 10.1 --> 10, more likely hemorrhoids. Patient had recieved PRN morphine 5 doses daily. Recieved stool softeners and laxatives over 6 doses miralax over 48hr, patient had a bowel movement which improved her abdominal pain. Patient educated that she may continue to have constipation while she is and that miralax is safe during and breast feeding. Nephrolithiasis Ultrasound with moderate symmetric hydroureteronephrosis, 6 mm nonobstructing left lower pole stone. UA contaminated positive for blood, Ucx negative. Cr. 0.85 WNL, vitals stable. NSS IVF running at 125/hr in ED, d/c'd. Started on Tylenol and Morphine for pain control, was recieving 5-6 doses morphine daily. Urology was consulted, said no indication for a urologic procedure at this time and if the patient becomes septic or develops renal failure they rec. transfer to tertiary care center. Patients back pain was determined not to be secondary to her kidney stone. Concern for pyelonephritis vs. UTI vs. asymptomatic bacteria UA with 2+ blood, trace LCE, WBC, 20-30 Epithelial cells, 1+ bacteria. Ceftriaxone started in ER - Has completed 3 doses. Neg urine culture. Abx d'c'd Hx. of PROM prior admission to OB on 11/07 with category 1 FHT and no cervical change with occasional contractions at that time. No current contractions, LOF, bleeding, good movement (per patient). Continue Latonya started for prior PROM. NST 11/15 normal (2) Velamentous insertion of umbilical cord: (3) : (4) Crohns disease: (5) Depression with anxiety: Total Time Total Time Spent Total Time Spent (In Minutes): <30 Discharge Plan Discharge Items Patient Disposition: Home - Self-Care Reason For Visit: NEPHROLITHIASIS Discharge Diagnosis: Piriformis Syndrome Activity: Resume your previous activity Non-emergency contact: Primary Care Provider Call non-emergency contact if: you have any medication questions, your symptoms worsen and you have a fever Follow-up/Referrals: Barbara Carreon CRNP [Primary Care Provider] - 11/21/20 11:00 am Diet: Regular Addtl Attending Provider Instructions: You were admitted to the hospital for left flank pain secondary to piriformis syndrome. The piriformis is a muscle in your butt used to stabilize your hips, and often is put under a lot of strain, especially during . This results in a tight muscle that often feels like back or butt pain. We treated you with osteopathic manipulative treatment to try and relax that muscle. When you are at home, please continue doing home exercises to relax your piriformis muscle. You had constipation in the hospital, likely due to the morphine used for pain control. We treated you with multiple doses of miralax. Miralax is safe to use during and breast feeding. You were found to have a kidney stone in your left kidney. We determined that your pain was not caused by the kidney stone. However, in the future if your stone started traveling out of your kidney towards your bladder, you may feel pain on your back radiating towards your front towards your groin. Drinking lots of water will help the stone pass faster. A discharge summary will be sent to your primary care physician to ensure continuity of care. Please bring this discharge summary with you to your next office appointment so that your provider can review it at that time. Follow-up appointments: Make a follow-up appointment with your PCP within the next week. It is very important that you follow up with them shortly after discharge from the hospital. Keep all your follow-up appointments as already scheduled. If you cannot make an appointment, notify your provider. Medications: Your medication list has been reviewed and reconciled upon discharge to ensure accuracy and continuity of care. An updated list of all your medications is included with your hospital discharge paperwork. Please review this list closely, and make note of any changes. Take your medications as instructed; do not skip a dose of your medicines. Make sure all of your doctors know every medicine you are taking (including [id number] medicines, vitamins, and supplements). Call your primary care provider before taking any new medicines (including [id number] medicines, vitamins, and supplements), because some of these may interact with your current medications, or may make your symptoms worse. Tell your primary care provider if you cannot afford your medications. CONTACT YOUR PRIMARY CARE PROVIDER if you experience any of the following: contractions, bleeding or discharge from your groin Difficulty following your treatment plan, or difficulty taking medications CALL 911 OR GO TO THE EMERGENCY DEPARTMENT if you experience any of the following: Sudden, severe abdominal pain or nausea/vomiting Severe chest pain, or chest pain that radiates (moves) to your jaw or arm Sudden, severe shortness of breath or difficulty breathing Thank you for allowing us to participate in your care. Pending Studies at Discharge: No Stand-Alone Forms: My [facility] Monitor, Smoking Cessation Medications and DC Order Prescriptions: Continued albuterol sulfate [Ventolin HFA] 90 mcg/actuation HFA aerosol inhaler 2 puff INH QID PRN (Reason: shortness of breath or wheezing) Qty: 6.7 RF: 1 Latonya (PF) 275 mg/1.1 mL auto-injector 275 mg subcut DIRECTED RF: 0 acetaminophen 500 mg Tablet 1,000 mg PO Q6H PRN (Reason: Pain) RF: 0 prenat.vits,catarina,tvg-[id number] Tablet 1 tab PO HS RF: 0 Discharge Orders: Discharge Order (Routine); Ordered 11/15/20 Ordered By: Will Breen Admission Data Admit Date/Time: 11/10/20 23:31 Attending Provider: Odilon Palacio Admit Provider: Kamlesh Paul Primary Care Provider: Barbara Carreon Other Providers: Subhash Ramon Christophe T. Other Interventions: Discharge Summary Assessment (RN) Last Done: 11/15/20 15:52 Supervising Physician Co-Signing Physician Notes I personally examined the patient and verified all real points of history and exam, discussed case, and agree with decision making with Dr Michel. Back pain markedly better. Also has had bowel movement. Vitals noted, awake and alert pleasant no distress. HEENT normocephalic atraumatic mucous membranes moist. Breathing unlabored no accessory muscle use good effort. Post isometric relaxation done times a few repetitionsdirected predominantly at left piriformismostly to teach patient how to do this at home. Patient tolerated well. Back painhighly doubt kidney stone related. Very likely biomechanical. OMT done yesterday with significant improvement in symptoms. Done very quickly/short treatment today more or less just to educate patient on how to continue to stretch once she is home. Likely exacerbated by constipation. Somatic dysfunctionpelvic regionOMT improved situation, could continue OMT as an outpatient if necessary/if pain recurs, but taught stretches to hopefully prevent this ConstipationMiraLAX affected improvement Stable for home Resident Activity Tracking Resident Involvement: Resident Care Provided Care Provided: Adult Hospital Medicine
[2020-11-15 15:53] VITALS: BP 108/66; PULSE 103; TEMP 98.8; O2SAT 96
--- NOTE | 2020-11-15 19:17 | Billing Data ---
Date of Service November 15, 2020 Coding Level of Care Code D/C DAY MANAGEMENT <30 MINS
--- NOTE | 2020-11-21 13:29 | Coding Query ---
CODING QUERY To promote full compliance with coding requirements relating to patient care, provider participation is requested in all cases of packaging coordinator uncertainty. Please assist us with the question(s) below: Coding Question(s): Documentation states "concern for Pyelonephritis vs UTI vs Asymptomatic Bacteria. Please clarify patients conditions below: ( ) Patient with Pyelonephritis; Other 2 conditions Ruled Out ( ) Patient with UTI; Other 2 conditions Ruled Out ( ) Patient with Asymptomatic Bacteria; Other 2 conditions Ruled Out (x ) All 3 conditions were Ruled Out ( ) Other Please Explain Thank you Jonh Boles Principal Diagnosis: "that condition established after study, to be chiefly responsible for occasioning the admission of the patient to the hospital for care." Co-Existing Principal Diagnosis: "when two or more diagnoses equally meet the criteria for principal diagnosis as determined by the circumstances of admission, diagnostic work up, and/or therapy provided, and the Alphabetic Index, Tabular List, or another coding guideline does not provide sequencing direction, any one of the diagnoses may be sequenced first." "When the physician has documented what appears to be a current diagnosis in the body of the record, but has not included the diagnosis in the final diagnostic statement, the physician should be asked whether the diagnosis should be added." (Source Coding Clinic 2 QTR90. p3-4) CHRISTIE
== END 2020-11-15 16:28 | disposition home or self-care (01) | DRG 832 ==
LOC: ED 17:53 → SUATTDRO 23:31 → 3E 23:31
DX: O99.613 Diseases of the digestive system complicating pregnancy, third trimester; K59.00 Constipation, unspecified; R19.7 Diarrhea, unspecified; O26.893 Other specified pregnancy related conditions, third trimester; O9A.213 Injury, poisoning and certain other consequences of external causes complicating pregnancy, third trimester; N80.9 Endometriosis, unspecified; M99.05 Segmental and somatic dysfunction of pelvic region; N13.2 Hydronephrosis with renal and ureteral calculous obstruction; Y92.239 Unspecified place in hospital as the place of occurrence of the external cause; O22.43 Hemorrhoids in pregnancy, third trimester; T40.2X5A Adverse effect of other opioids, initial encounter; O99.353 Diseases of the nervous system complicating pregnancy, third trimester; G57.00 Lesion of sciatic nerve, unspecified lower limb; Z87.59 Personal history of other complications of pregnancy, childbirth and the puerperium; O99.283 Endocrine, nutritional and metabolic diseases complicating pregnancy, third trimester; K50.90 Crohn's disease, unspecified, without complications; Z98.890 Other specified postprocedural states; O26.833 Pregnancy related renal disease, third trimester; Z88.8 Allergy status to other drugs, medicaments and biological substances; O99.891 Other specified diseases and conditions complicating pregnancy; E28.2 Polycystic ovarian syndrome; Z79.899 Other long term (current) drug therapy; Z3A.36 36 weeks gestation of pregnancy; Z87.440 Personal history of urinary (tract) infections; Z91.09 Other allergy status, other than to drugs and biological substances

== ENCOUNTER 2020-11-27 03:48 | Inpatient (IN) ==
[2020-11-27] MEDS ORDERED: LACTATED RINGER'S 1,000 ML IV PRN (06:58)
[2020-11-27] MEDS ORDERED: OXYTOCIN 30 UNITS/500 ML BAG IV PRN (06:58)
[2020-11-27] MEDS ORDERED: LIDOCAINE 1% LOCAL 20 ML VIAL ONE (07:11)
[2020-11-27] MEDS ORDERED: OXYTOCIN 10 UNITS/ML VIAL ONE (07:17)
--- NOTE | 2020-11-27 07:38 | Delivery Summary ---
Vaginal Delivery Summary Date of Service November 27, 2020 Vaginal Delivery Summary DIAGNOSES: 1. Ramos intrauterine at 38w5d gestation. 2. Spontaneous onset of labor. 3. Group B Streptococcus Neg. PROCEDURE: Spontaneous vaginal delivery and repair of R labial laceration. SURGEON: Laquita Kaufman MD. STAFF PSYCHOLOGIST: None. ESTIMATED BLOOD LOSS: 400 mL. COMPLICATIONS: None. PLACENTA: Spontaneous and intact with a 3-vessel cord. DISPOSITION: Stable to labor and delivery. DESCRIPTION: Patient arrived to L&D at the advice of the on-call MD. She had contacted me to note onset of painful contractions Q7m, possible LOF. On arrival her cervix was 4cm, which was unchanged from her recent office exam, there was no obvious LOF and there were palpable intact membranes per the examining RN. Contractions were noted approximately every 5min. FHT were Cat 1. I was called with the above information. At first I told the RN that as the patient was unchanged, she was eligible to go home. The RN then told me the patient was rating her pain 9/10 and did not wish to go home, despite lack of cervical change, as she felt sure she was in labor. She was invited to continue ambulation for recheck in an hour. Twenty minutes later the patient felt she needed to push, and was re-examined by two RN's (the original plus a backup for confirmation), and found to still be unchanged at 4cm. I was again notified of her unchanged cervix, reassuring heart tones, and continued complaint of painful contractions. I told the nurses I was on my way in to labor and delivery to see the patient and assess her myself; she was not changing her cervix but was continuing to complain of severe pain with contractions and not interested in leaving L&D. On my arrival a short time later, the patient was being examined by another nurse, as she had again complained of feeling an urge to push. This time the cervix was 9cm and 100% effaced with the head at -2 station. I quickly confirmed the exam, and LOF clear was also noted at this time. Patient requested epidural, and we began the process of placing IV and drawing labs. Unfortunately she immediately began to have involuntary pushing, so we abandoned our efforts and moved to prepare for delivery. The patient pushed well and brought the head to in OA position. The infant's head delivered with spontaneous maternal efforts, with the perineum protected during this time. There was no nuchal cord. The right shoulder was anterior. The shoulders and body delivered without any difficulty, and the infant was placed on the maternal abdomen. It was vigorous and moving all extremities, and making respiratory efforts. The cord was doubly clamped by the MD and then cut by the FOB. The placenta delivered spontaneously and was noted to be intact and with a 3VC. Though a velamentous cord insertion was expected, it was merely marginal on exam. The cervix, vagina and perineum were examined and were found to be without defect requiring repair; however, the R labia minora did suffer a separation, which was infiltrated with 1% lidocaine 8cc and then repaired in running locked fashion with vicryl suture. The fundus was firm and lochia minimal immediately after delivery. [facility] Vaginal Delivery Charge Vaginal Delivery Codes: 57865 global code for the antepartum, delivery, and post-
[2020-11-27] MEDS ORDERED: oxyCODONE/ACETAMINOPHEN 5mg/325mg TAB PO PRN (07:50)
[2020-11-27] MEDS ORDERED: BENZOCAINE 20% AER SPR 82.5 GM CAN EXT PRN (07:50)
[2020-11-27] MEDS ORDERED: ACETAMINOPHEN 325 MG TAB PO PRN (07:50)
[2020-11-27] MEDS ORDERED: DIPHTHERIA/TETANUS/PERTUSSIS 0.5 ML SYR/VIAL IM ONE (07:50)
[2020-11-27] MEDS ORDERED: HYDROCORTISONE ACETATE 25 MG SUPP PR PRN (07:50)
[2020-11-27] MEDS ORDERED: SUPERCREAM 0.870% 15 GM JAR EXT PRN (07:50)
[2020-11-27] MEDS: PRENATAL VITAMIN 1 TAB PO SCH (08:04)
[2020-11-27] MEDS: DOCUSATE SODIUM 100 MG CAP PO SCH ×2 (08:04→19:26)
[2020-11-27] MEDS: IBUPROFEN 600 MG TAB PO PRN ×3 (08:30→19:26)
[2020-11-28] MEDS: IBUPROFEN 600 MG TAB PO PRN (03:19)
[2020-11-28 06:36] LABS: Hematocrit (blood only) 31.4 % (37-47); Hemoglobin 10.5 g/dL (12.0-16.0); Mean Corpuscular Hemoglobin 29.1 pg (25-34); Mean Corpuscular Hgb Conc 33.4 g/dL (32-36); Mean Platelet Volume 9.6 fL (7.4-10.4); Platelet Count 210 K/uL (130-400); RDW Coefficient of Variation 14.1 % (11.5-14.5); RDW Standard Deviation 44.8 fL (36.4-46.3); Red Blood Count 3.61 M/uL (4.2-5.4)
--- NOTE | 2020-11-28 06:52 | Obstetrical Progress Note ---
Date of Service <Bandar Huitron MD - Last Filed: 11/28/20 07:57> November 28, 2020 Assessment & Plan <Bandar Huitron MD - Last Filed: 11/28/20 07:57> (1) Encounter for care and examination after delivery: PPD1; Stable, improving, routine post care -d/c today -signed script for breast pump prior to d/c -f/u with ob outpatient <Laquita Kaufman MD - Last Filed: 11/28/20 07:20> (1) Encounter for care and examination after delivery: Subjective <Bandar Huitron MD - Last Filed: 11/28/20 07:57> Barbara Mckeon is a 30 y/o female with a hx of PPROM who is now PPD #1 following spontaneous vaginal delivery at 38.5 weeks. Reports feeling well overall this morning. + abdominal cramping & 0/10 pain well managed on analgesics. Voiding +. Tolerating meals well and able to ambulate without difficulty. + passing gas and + bowel movements. Some lochia with improvement this morning. Breast feeding. Review of Systems Denies fever, chills, sweats Denies shortness of breath, difficulty breathing, chest pain, palpitations, chest pressure. Denies breast pain. Denies dysuria. Denies headache or changes in vision Physical Exam <Bandar Huitron MD - Last Filed: 11/28/20 07:57> General: Alert, oriented. No acute distress. Cardiac: Regular rate and rhythm, no murmurs/rubs/gallops. Respiratory: Clear to auscultation bilaterally a/p, no wheezes/rales/rhonchi. No increased work of breathing. Symmetrical chest rise. No respiratory distress. Abdomen: Soft, nontender, nondistended. Bowel sounds present. Uterus: Uterine fundus firm, palpable 10 cm below umbilicus. Lower Extremities: No lower extremity edema or swelling. No deep calf pain. Samir's negative bilaterally.. Results & Data ([facility] [place]) <Bandar Huitron MD - Last Filed: 11/28/20 07:57> Vital Signs (Past 12 Hours) Vital Signs Temp Pulse Resp BP Pulse Ox 11/28/20 03:05 36.7 C 88 16 127/84 98 11/27/20 23:00 36.8 C 100 H 16 129/82 98 11/27/20 19:25 36.6 C 106 H 16 137/83 98 <Laquita Kaufman MD - Last Filed: 11/28/20 07:20> Co-Signing Physician Notes Patient seen separately from resident, who was not present at the time I rounded. No changes to above note which was reviewed. Patient requesting breast pump rx and d/c home today. <Laquita Kaufman MD - Last Filed: 11/28/20 07:20> Resident Involvement: Resident Care Provided Care Provided: OB Delivery
[2020-11-28] MEDS: DOCUSATE SODIUM 100 MG CAP PO SCH (07:17)
[2020-11-28] MEDS: PRENATAL VITAMIN 1 TAB PO SCH (07:17)
--- NOTE | 2020-11-28 07:19 | Obstetrical Progress Note ---
Date of Service November 28, 2020 Assessment & Plan (1) Encounter for care and examination after delivery: Patient desires d/c home ppd#1 if infant able to go. Will plan for this probability. Subjective Ambulation: ambulating normally Voiding: no voiding problems Passing Gas:: Yes Diet Tolerance:: regular diet Lochia:: Small Feeding Type:: breast feeding Physical Exam Constitutional WD/WN, vitals as above Eyes PERRL, conjunctivae normal, anicteric sclerae Neck normal visual inspection Respiratory normal respiratory effort and able to speak in complete sentences; no respiratory distress and no labored breathing Cardiovascular Rate/Rhythm: regular rate and regular rhythm Extremities: no edema Chest (Breasts) Chest: normal inspection of chest Gastrointestinal (Abdomen) Inspection/Auscultation: abdomen normal to inspection Soft, postgravid Psychiatric A+Ox3, euthymic affect Genitourinary OB Exam Abdomen: + fundal height Fundus: + firm and + relation to umbilicus (fundus just below umbilicus); not tender Results & Data ([facility]) Vital Signs (Past 12 Hours) Vital Signs Temp Pulse Resp BP Pulse Ox 11/28/20 03:05 98.1 F 88 16 127/84 98 11/27/20 23:00 98.2 F 100 H 16 129/82 98 11/27/20 19:25 97.9 F 106 H 16 137/83 98
== END 2020-11-28 11:15 | disposition home or self-care (01) | DRG 807 ==
LOC: OPB 03:48 → 4S1 03:49 → 4S2 11:37
DX: O70.0 First degree perineal laceration during delivery; Z37.0 Single live birth; Z87.59 Personal history of other complications of pregnancy, childbirth and the puerperium; Z3A.38 38 weeks gestation of pregnancy

== ENCOUNTER 2021-06-22 06:03 | Inpatient (IN) ==
[2021-06-22] MEDS ORDERED: ONDANSETRON INJ 2 MG/ML 2 ML VIAL IV STA (06:10)
[2021-06-22] MEDS ORDERED: SODIUM CHLORIDE 0.9% 1000ML 1,000 ML IV STA (06:10)
--- NOTE | 2021-06-22 06:20 | Emergency Department Note ---
Impression & Plan Hydronephrosis with renal and ureteral calculous obstruction, Hydronephrosis, Right flank pain ED Provider Note NAME: FROILAN PASCAL AGE: 31 SEX: F : 1990 ARRIVES VIA: Ambulance INFORMANT: Patient, ED PROVIDER(S): Skip Landry DO CHIEF COMPLAINT: Abdominal pain HPI: The patient is a 31-year-old female who presented to the emergency department with right-sided abdominal pain. The patient states the pain began acutely approximately 3 AM this morning. She has noticed nausea as well as vomiting. Initially she thought it was "gas" and she took [id number] antacids with only minimal relief. The patient states the pain has become severe. She notices it on the right side as well as her right upper quadrant. She has a history of a kidney stone but this complicated her . She is unsure if she ever passed the kidney stone. That episode was on her left flank. She denies having any dysuria or frequency. She denies having any vaginal bleeding. She said no chest pain or difficulty breathing. The pain was severe and she received fentanyl prior to arrival via the wash crew person. The patient states that this did help her pain somewhat. She states the pain does worsen with palpation of the abdomen as well as ambulation. ROS: See above HPI for pertinent positives & negatives. A total of 10 systems reviewed and were otherwise negative. PAST MEDICAL HISTORY: See Below PAST SURGICAL HISTORY: See Below FAMILY HISTORY: See Below SOCIAL HISTORY: See Below HOME MEDICATIONS: See Below ALLERGIES: See Below VITALS: See Below PHYSICAL EXAMINATION: GENERAL: The patient is awake and alert. The patient is very anxious appearing and appears to be uncomfortable. EYES: The conjunctivae are clear. The pupils are round and reactive. EARS, NOSE, MOUTH AND THROAT: The nose is without any evidence of any deformity. NECK: The neck is nontender and supple. RESPIRATORY: Normal respiratory effort is noted there is no evidence of wheezing rhonchi or rales CARDIOVASCULAR: Regular rate and rhythm noted there no murmurs rubs or gallops normal S1 normal S2. GASTROINTESTINAL: The abdomen is soft and mildly distended. There is right upper quadrant tenderness to palpation which is moderate. There is no left- sided tenderness. BACK: No midline tenderness or or step-off noted range of motion in flexion extension as well as rotation no signs of muscle spasm noted MUSCULOSKELETAL/EXTREMITIES: There is no evidence of gross deformity full range of motion is noted in the hips and shoulders. SKIN: There is no obvious evidence of any rash. There are no petechiae, pallor or cyanosis noted. NEUROLOGIC: Patient is awake alert and oriented x3 MEDICAL DECISION MAKING: Patient is a 31-year-old female who presented to the emergency department for an evaluation of flank pain. The patient had very severe acute right-sided flank pain. The patient was treated with IV fluids and IV pain medication in the emergency department. She was reevaluated multiple times. I discussed the patient's laboratory and radiographic studies with her. She was found to have a large obstructing right-sided ureteral calculus. This reason I discussed her case with the on-call urology group. I also discussed this case with the on- call [facility] hospitalist. They have agreed to evaluate the patient in the emergency department for further management and disposition. Given the patient's bilateral ureteral calculi she may require stenting. The left side was not felt to be obstructing by radiographic studies. Triage Nursing notes reviewed. Prior medical records reviewed Vital Signs: reviewed and remarkable for no significant abnormalities Differential diagnosis: Appendicitis, ovarian cyst, ovarian torsion, ectopic , TOA, PID, infe ctions, diverticulitis, UTI, obstruction, mesenteric ischemia, aortic pathology, inflammatory bowel disease, renal colic, PUD, pancreatitis, biliary pathology, hernia, volvulus, constipation, as well as other pathologies. ER treatment provided: See below Diagnostics interpreted by me: ECG: none Cardiac Monitoring: An order was placed for continuous cardiac monitoring. The monitor shows a rate of 80 bpm with sinus rhythm. Laboratory studies: As stated above and show below. Imaging studies: See below Consultation(s): I discussed this case with Dr. Pop who is on-call for urology. Discussed this case with Dr. Lassiter on-call for the [facility] hospitalist group. Past Med/Surg History Medical History Abnormal colonoscopy Anemia HX>DURING Asthma HAS NOT USED INHALER FOR OVER 2 YEARS Asthma Bipolar disorder Bipolar disorder, unspecified (06/04/12) Chlamydia Colitis (07/06/11) Crohns disease Depression with anxiety Diverticulosis of colon without diverticulitis (06/04/12) Endometriosis determined by laparoscopy Esophageal reflux (06/04/12) History of kidney stones History of tobacco use Hx gestational diabetes Polycystic ovarian syndrome Polycystic ovaries (06/04/12) Tobacco use disorder (06/04/12) Surgical History H/O bilateral salpingectomy H/O dilation and curettage History of colonoscopy History of tonsillectomy and adenoidectomy S/P laparoscopy [place] teeth removed Family History Aunt Migraine headache Brother Heart murmur Aunt Breast cancer Grandmother (Paternal) Brain cancer Colorectal cancer Other No family history of adverse response to anesthesia Denies family history of Ovarian cancer Social History Smoking Status: Never smoker Second Hand Exposure: Yes ( A CHILD); Hx Alcohol Use: No Hx Substance Use: No Preferred Language: Upper Sorbian Communication Ability: Effective Customer Experience Leader Required: No Beliefs That Will Affect Care: None marital status: marital status details: Chris Pascal (30) [phone] Current Living Situation: Family Current Living Situation Comment: lives with spouse, daughter, son, 2 dogs current occupational status: employed current occupation: [employer] Feels Safe at Home: Yes Assistive Devices: None Allergies Allergies Allergy/AdvReac Type Severity Reaction Status Date / Time Citalopram Analogues Allergy Intermediate hives Verified 06/22/21 07:26 nickel Allergy Mild Rash Verified 06/22/21 07:26 sertraline Allergy Mild hives Verified 06/22/21 07:26 Home Meds Home Medications Medication Instructions Recorded Confirmed albuterol sulfate 90 mcg/actuation 1 inh INHALATION QID PRN 02/13/21 06/22/21 aerosol inhaler Results & Data (ED) Vital Signs Vital Signs - 24 hr 06/22/21 06:09 06/22/21 06:10 06/22/21 06:28 Temperature 36.9 C Temperature Source Oral Pulse Rate 93 H 117 H Pulse Rate from SpO2 Sensor 115 H Pulse Strength Normal Respiratory Rate 18 21 Respiratory Effort / Characteristics Spontaneous Labored Respiratory Depth Normal Respiratory Pattern Regular Blood Pressure 121/97 121/97 Blood Pressure Mean 105 105 Blood Pressure Position Lying Pulse Oximetry 99 98 95 Oxygen Delivery Method Room Air Room Air Sepsis Recent Fever Within 48 Hours No Sepsis New/Unexplained Change in Mental Status N/A Sepsis Action Taken by Nursing No Action Required 06/22/21 06:41 06/22/21 07:00 06/22/21 07:01 Temperature Temperature Source Pulse Rate 101 H 94 H 96 H Pulse Rate from SpO2 Sensor 98 H 95 H 98 H Pulse Strength Respiratory Rate 18 20 Respiratory Effort / Characteristics Respiratory Depth Respiratory Pattern Blood Pressure 115/64 Blood Pressure Mean 81 Blood Pressure Position Pulse Oximetry 97 99 98 Oxygen Delivery Method Sepsis Recent Fever Within 48 Hours Sepsis New/Unexplained Change in Mental Status Sepsis Action Taken by Nursing 06/22/21 07:30 06/22/21 08:00 Temperature Temperature Source Pulse Rate 92 H 80 Pulse Rate from SpO2 Sensor 94 H 81 Pulse Strength Respiratory Rate 15 15 Respiratory Effort / Characteristics Respiratory Depth Respiratory Pattern Blood Pressure 117/77 119/73 Blood Pressure Mean 90 88 Blood Pressure Position Pulse Oximetry 98 99 Oxygen Delivery Method Sepsis Recent Fever Within 48 Hours Sepsis New/Unexplained Change in Mental Status Sepsis Action Taken by Correction Medications Current Medication List: was personally reviewed by me Laboratory Data Attestation: I reviewed the patient's lab results. Result diagrams: 06/22/21 06:08 06/22/21 06:08 Lab Results 06/22/21 06/22/21 06/22/21 Range/Units 06:08 06:08 06:08 WBC 11.94 H (4.8-10.8) K/uL RBC 4.80 (4.2-5.4) M/uL Hgb 12.8 (12.0-16.0) g/dL Hct 38.9 (37-47) % MCV 81.0 (80-100) fL MCH 26.7 (25-34) pg MCHC 32.9 (32-36) g/dL RDW Std Deviation 43.2 (36.4-46.3) fL RDW Coeff of Margaret 14.8 H (11.5-14.5) % Plt Count 303 (130-400) K/uL MPV 9.6 (7.4-10.4) fL Immature Gran % (Auto) 0.3 % Neut % (Auto) 72.2 % Lymph % (Auto) 20.4 % Starke % (Auto) 6.6 % Eos % (Auto) 0.3 % Baso % (Auto) 0.2 % Neut # (Auto) 8.63 H (1.4-6.5) K/uL Lymph # (Auto) 2.43 (1.2-3.4) K/uL Starke # (Auto) 0.79 H (0.11-0.59) K/uL Eos # (Auto) 0.03 (0-0.5) K/uL Baso # (Auto) 0.02 (0-0.2) K/uL Immature Gran # (Auto) 0.04 H (0.00-0.02) K/uL Sodium 136 (136-145) mmol/L Potassium 3.5 (3.5-5.1) mmol/L Chloride 106 (98-107) mmol/L Carbon Dioxide 19 L (21-32) mmol/L Anion Gap 11 (3-11) BUN 13 (6-23) mg/dl Creatinine 0.81 (0.6-1.2) mg/dl Est Cr Clr Drug Dosing Not Reportable Est GFR ( Amer) 113.0 ml/min Est GFR (Non-Af Amer) 97.5 ml/min BUN/Creatinine Ratio 16.0 (10-20) Glucose 115 H (70-99(Fasting)) mg/dl Calcium 9.2 (8.5-10.1) mg/dl Total Bilirubin 0.6 (0.2-1.0) mg/dl AST 17 (13-39) U/L ALT 21 (7-52) U/L Alkaline Phosphatase 73 (34-104) U/L Total Protein 7.1 (6.0-8.3) gm/dl Albumin 4.4 (3.4-5.0) gm/dl Globulin 2.7 (2.5-4.0) gm/dl Albumin/Globulin Ratio 1.6 (0.9-2) Lipase 22 (11-82) U/L HCG, Qual Negative (Negative) Urine Color Urine Appearance (Clear) Urine pH (4.5-7.5) Ur Specific Felton (1.000-1.030) Urine Protein (Negative) Urine Glucose (UA) (Negative) Urine Ketones (Negative) Urine Blood (Negative) Urine Nitrite (Negative) Urine Bilirubin (Negative) Urine Urobilinogen (Negative) Ur Leukocyte Esterase (Negative) Urine WBC (Auto) (0-5) /hpf Urine RBC (Auto) (0-4) /hpf U Hyaline Cast (Auto) (0-5) /lpf U Epithel Cells (Auto) (0-5) /lpf Urine Bacteria (Auto) (Negative) 06/22/21 Range/Units 07:48 WBC (4.8-10.8) K/uL RBC (4.2-5.4) M/uL Hgb (12.0-16.0) g/dL Hct (37-47) % MCV (80-100) fL MCH (25-34) pg MCHC (32-36) g/dL RDW Std Deviation (36.4-46.3) fL RDW Coeff of Margaret (11.5-14.5) % Plt Count (130-400) K/uL MPV (7.4-10.4) fL Immature Gran % (Auto) % Neut % (Auto) % Lymph % (Auto) % Starke % (Auto) % Eos % (Auto) % Baso % (Auto) % Neut # (Auto) (1.4-6.5) K/uL Lymph # (Auto) (1.2-3.4) K/uL Starke # (Auto) (0.11-0.59) K/uL Eos # (Auto) (0-0.5) K/uL Baso # (Auto) (0-0.2) K/uL Immature Gran # (Auto) (0.00-0.02) K/uL Sodium (136-145) mmol/L Potassium (3.5-5.1) mmol/L Chloride (98-107) mmol/L Carbon Dioxide (21-32) mmol/L Anion Gap (3-11) BUN (6-23) mg/dl Creatinine (0.6-1.2) mg/dl Est Cr Clr Drug Dosing Est GFR ( Amer) ml/min Est GFR (Non-Af Amer) ml/min BUN/Creatinine Ratio (10-20) Glucose (70-99(Fasting)) mg/dl Calcium (8.5-10.1) mg/dl Total Bilirubin (0.2-1.0) mg/dl AST (13-39) U/L ALT (7-52) U/L Alkaline Phosphatase (34-104) U/L Total Protein (6.0-8.3) gm/dl Albumin (3.4-5.0) gm/dl Globulin (2.5-4.0) gm/dl Albumin/Globulin Ratio (0.9-2) Lipase (11-82) U/L HCG, Qual (Negative) Urine Color Yellow Urine Appearance Clear (Clear) Urine pH 6.5 (4.5-7.5) Ur Specific Felton 1.011 (1.000-1.030) Urine Protein 1+ H (Negative) Urine Glucose (UA) Negative (Negative) Urine Ketones Negative (Negative) Urine Blood 3+ H (Negative) Urine Nitrite Negative (Negative) Urine Bilirubin Negative (Negative) Urine Urobilinogen Negative (Negative) Ur Leukocyte Esterase Trace H (Negative) Urine WBC (Auto) 10-30 H (0-5) /hpf Urine RBC (Auto) >30 H (0-4) /hpf U Hyaline Cast (Auto) 1-5 (0-5) /lpf U Epithel Cells (Auto) >30 H (0-5) /lpf Urine Bacteria (Auto) 1+ H (Negative) Administered Medications Morphine Sulfate (Morphine Sulfate 4 Mg/Ml 1 Ml Carp\\Vial) 4 mg IV Q15M PRN PRN Reason: Pain Stop: 07/06/21 06:09 Last Admin: 06/22/21 07:47 Dose: 4 mg Documented by: [id number] Admin: 06/22/21 07:02 Dose: 4 mg Documented by: [id number] Admin: 06/22/21 06:25 Dose: 4 mg Documented by: [id number] Discontinued Medications Sodium Chloride (Nss 1000ml) 1,000 mls @ 999 mls/hr IV .Q1H1M STA Stop: 06/22/21 07:10 Last Admin: 06/22/21 06:26 Dose: 999 mls/hr Documented by: [id number] Ondansetron HCl (Ondansetron Inj 2 Mg/Ml 2 Ml Vial) 4 mg IV NOW STA Stop: 06/22/21 06:11 Last Admin: 06/22/21 06:26 Dose: 4 mg Documented by: [id number] Imaging Data Radiologist's Impression: Abdomen/Pelvis CT 06/22/21 06:16 CT OF THE ABDOMEN AND PELVIS WITHOUT CONTRAST CLINICAL HISTORY: Right flank pain. COMPARISON STUDY: CT of the abdomen and pelvis September 24, 2018. Renal ultrasound November 10, 2020. TECHNIQUE: Axial images of the abdomen and pelvis were obtained without IV contrast. Images were reviewed in the axial, sagittal, and coronal planes. Automated exposure control was utilized for the study. A dose lowering technique was utilized adhering to the principles of ALARA. FINDINGS: Lung bases are unremarkable. A 7 mm proximal right ureteropelvic junction calculus results in moderate right hydronephrosis. There is trace right perinephric and periureteral stranding. There is no left hydronephrosis. Note is made of a 8 mm calculus at the left ureterovesical junction. There is an additional 4 mm distal left ureteral calculus. These calculi are nonobstructing. There is trace left periureteral stranding. Evaluation the remainder of the abdomen and pelvis is suboptimal on this unenhanced exam. Liver, spleen, adrenal glands and pancreas are unremarkable. No evidence for a bowel obstruction. The appendix is normal. No lymphadenopathy. Trace fluid within the pelvis is likely physiologic. No acute fracture or suspicious lesion within the visualized skeletal structures. IMPRESSION: 1. Moderate right hydronephrosis due to a 7 mm right ureteropelvic junction calculus. 2. 8 mm nonobstructing calculus at the left ureterovesical junction. Additional 4 mm distal left ureteral calculus. No left hydronephrosis. ACT 112: Negative or not required by law. Electronically signed by: Sukhdeep Jimenez M.D. 06/22/2021 6:48 AM Discharge Plan Visit Data Chief Complaint: Flank Pain Stated Complaint: RT. FLANK PAIN/NAUSEA ED Provider: Skip Landry Discharge Problem: Hydronephrosis with renal and ureteral calculous obstruction, Hydronephrosis, Right flank pain Patient Disposition: Being Evaluated by Hospitalist Forms Stand Alone Forms: My [facility] [employer] Prescriptions Prescriptions: No Action albuterol sulfate 90 mcg/actuation Hfa Aerosol Inhaler 1 inh INHALATION QID PRN (Reason: SHORT OF BREATH) RF: 0 Referrals Referrals: Froilan Carreon CRNP [Primary Care Provider] -
[2021-06-22] MEDS: MoRPHine SULFATE 4 MG/ML 1 ML CARP\\VIAL IV PRN ×3 (06:25→07:47)
[2021-06-22 06:29] LABS: Basophils # (auto) 0.02 K/uL (0-0.2); Basophils % (auto) 0.2 %; Eosinophils # (auto) 0.03 K/uL (0-0.5); Eosinophils % (auto) 0.3 %; Hematocrit (blood only) 38.9 % (37-47); Hemoglobin 12.8 g/dL (12.0-16.0); Immature Granulocytes # (auto) 0.04 K/uL (0.00-0.02); Immature Granulocytes % (auto) 0.3 %; Lymphocytes # (auto) 2.43 K/uL (1.2-3.4); Lymphocytes % (auto) 20.4 %; Mean Corpuscular Hemoglobin 26.7 pg (25-34); Mean Corpuscular Hgb Conc 32.9 g/dL (32-36); Mean Platelet Volume 9.6 fL (7.4-10.4); Monocytes # (auto) 0.79 K/uL (0.11-0.59); Monocytes % (auto) 6.6 %; Neutrophils # (auto) 8.63 K/uL (1.4-6.5); Neutrophils % (auto) 72.2 %; Platelet Count 303 K/uL (130-400); RDW Coefficient of Variation 14.8 % (11.5-14.5); RDW Standard Deviation 43.2 fL (36.4-46.3); White Blood Count 11.94 K/uL (4.8-10.8)
[2021-06-22 06:49] LABS: Alanine Aminotransferase 21 U/L (7-52); Albumin Globulin Ratio 1.6 (0.9-2); Albumin Level 4.4 gm/dl (3.4-5.0); Alkaline Phosphatase 73 U/L (34-104); Anion Gap 11 (3-11); Aspartate Aminotransferase 17 U/L (13-39); Bilirubin,Total 0.6 mg/dl (0.2-1.0); Blood Urea Nitrogen 13 mg/dl (6-23); Calcium 9.2 mg/dl (8.5-10.1); Carbon Dioxide 19 mmol/L (21-32); Chloride 106 mmol/L (98-107); Est GFR (Non-African American) 97.5 ml/min; Globulin 2.7 gm/dl (2.5-4.0); Glucose 115 mg/dl (70-99(Fasting)); Lipase 22 U/L (11-82); Potassium 3.5 mmol/L (3.5-5.1); Sodium 136 mmol/L (136-145); Total Protein 7.1 gm/dl (6.0-8.3)
--- NOTE | 2021-06-22 06:51 | CT Scan Report ---
CT OF THE ABDOMEN AND PELVIS WITHOUT CONTRAST CLINICAL HISTORY: Right flank pain. COMPARISON STUDY: CT of the abdomen and pelvis September 24, 2018. Renal ultrasound November 10, 2020. TECHNIQUE: Axial images of the abdomen and pelvis were obtained without IV contrast. Images were revi ewed in the axial, sagittal, and coronal planes. Automated exposure control was utilized for the jonah dy. A dose lowering technique was utilized adhering to the principles of ALARA. FINDINGS: Lung bases are unremarkable. A 7 mm proximal right ureteropelvic junction calculus results in moderate right hydronephrosis. There is trace right perinephric and periureteral stranding. There is no left hydronephrosis. Note is made of a 8 mm calculus at the left ureterovesical junction. There is an additional 4 mm distal left ureteral calculus. These calculi are nonobstructing. There is trac e left periureteral stranding. Evaluation the remainder of the abdomen and pelvis is suboptimal on th is unenhanced exam. Liver, spleen, adrenal glands and pancreas are unremarkable. No evidence for a guanako wel obstruction. The appendix is normal. No lymphadenopathy. Trace fluid within the pelvis is likely physiologic. No acute fracture or suspicious lesion within the visualized skeletal structures. IMPRESSION: 1. Moderate right hydronephrosis due to a 7 mm right ureteropelvic junction calculus. 2. 8 mm nonobstructing calculus at the left ureterovesical junction. Additional 4 mm distal left uret eral calculus. No left hydronephrosis. ACT 112: Negative or not required by law. Electronically signed by: Sukhdeep Jimenez M.D. 06/22/2021 6:48 AM
[2021-06-22 07:05] LABS: Pregnancy Test, Serum Negative (Negative)
[2021-06-22 08:19] LABS: Appearance Urine Clear (Clear); Bacteria Urine Automated 1+ (Negative); Bilirubin Urine Negative (Negative); Blood Urine 3+ (Negative); Color Urine Yellow; Epithelial Cell Urine Auto >30 /lpf (0-5); Glucose Urine UA Negative (Negative); Ketones Urine Negative (Negative); Leukocyte Esterase Urine Trace (Negative); Nitrite Urine Negative (Negative); Protein Urine 1+ (Negative); RBC Urine Automated >30 /hpf (0-4); Specific Gravity Urine 1.011 (1.000-1.030); Urobilinogen Urine Negative (Negative); pH Urine 6.5 (4.5-7.5)
--- NOTE | 2021-06-22 09:39 | History & Physical Report ---
Date of Service June 22, 2021 Assessment & Plan (1) Hydronephrosis with renal and ureteral calculous obstruction: Plan: 31 y/o with known h/o nephrolithiasis presented with abrupt onset of R sided flank pain, N/V - afebrile and HD stable - normal WBC and metabolic panel - UA not grossly infected - CT showing 7 mm right UVJ obstructing stone with moderate hydronephrosis and 8 mm nonobstructing calculus at the left UVJ with additional 4 mm distal left ureteral calculus. No left-sided hydronephrosis - Urology on boardappreciate assistance. Plan is for bilateral ureteral stent placement today - Keep n.p.o. for planned procedure - Continue IV hydration - Continue IV Dilaudid as needed for pain control along with antiemetics - Empirically start Cipro (although UA not grossly infected, she will need perioperative prophylaxis irregardless) - I have discussed this case with Adriana BUSBY-- potential D/C later today if procedure uneventful. Can D/C with pain medication, urine strainer, flomax and pyridium with OP FU Plan: DVT Prophylaxis: early ambulation. If remains in house- lovenox. Plan of care to be D/W Dr. Lassiter. Further orders as warranted. Admission and Anticipated Discharge Date Admission Date: June 22, 2021 History of Present Illness Chief Complaint: Right flank pain x 2 hours Primary Care Provider: KEHINDE Granger Mrs. Mckeon is a 31y/o WF with a known h/o nephrolithiasis, presented to the ED c/o Right flank Pain, N/V. Was in her usual state of health when she went to bed lastnight. Awoke at 0300 with severe right sided flank pain, N/V, chills and gross hematuria. Denies dysuria. Has known nephrolithiasis as admitted 11/08 with a nonobstructing left sided stone. Was at the time and she was treated with conservative mgmt. Has not had any issues since and hasn't followed up with urology. Is not 6 months post- and is not . Symptoms were abrupt in onset. Pt afebrile and HD stable. Lab data unremarkable (normal WBC, renal function and UA is not grossly infected). CT shows right sided 7mm UJV obstructing stone with moderate hydronephrosis along with an 8mm nonobstructing left sided UVJ and 4mm nonobstructing ureteral stone. ED discussed case with urology and plan is for B/L ureteral stents today. Patient will be hospitalized for adequate pain control and empiric abx therapy. Allergies Allergy/AdvReac Type Severity Reaction Status Date / Time Citalopram Analogues Allergy Intermediate hives Verified 06/22/21 07:26 nickel Allergy Mild Rash Verified 06/22/21 07:26 sertraline Allergy Mild hives Verified 06/22/21 07:26 Home Medications Medication Instructions Recorded Confirmed Type albuterol sulfate 90 mcg/actuation 1 inh INHALATION QID PRN 02/13/21 06/22/21 History aerosol inhaler Past Med/Surg History Medical History Abnormal colonoscopy Anemia HX>DURING Asthma HAS NOT USED INHALER FOR OVER 2 YEARS Asthma Bipolar disorder Bipolar disorder, unspecified (06/04/12) Chlamydia Colitis (07/06/11) Crohns disease Depression with anxiety Diverticulosis of colon without diverticulitis (06/04/12) Endometriosis determined by laparoscopy Esophageal reflux (06/04/12) History of kidney stones History of tobacco use Hx gestational diabetes Polycystic ovarian syndrome Polycystic ovaries (06/04/12) Tobacco use disorder (06/04/12) Surgical History H/O bilateral salpingectomy H/O dilation and curettage History of colonoscopy History of tonsillectomy and adenoidectomy S/P laparoscopy [place] teeth removed Family History Aunt Migraine headache Brother Heart murmur Aunt Breast cancer Grandmother (Paternal) Brain cancer Colorectal cancer Other No family history of adverse response to anesthesia Denies family history of Ovarian cancer Social History Smoking Status: Former smoker Second Hand Exposure: No; Do You Dip or Chew Tobacco: No; Tobacco Cessation Education Requested by Patient: No Hx Alcohol Use: No Hx Substance Use: No Preferred Language: British Communication Ability: Effective Oncology Social Work Required: No Beliefs That Will Affect Care: None marital status: marital status details: Chris Mckeon (30) [phone] Current Living Situation: Spouse Current Living Situation Comment: lives with current occupational status: employed current occupation: [employer] Other Information That Helps Us Care for You: No Feels Safe at Home: Yes Safety Concerns: Feels Safe At This Time Assistive Devices: None Review of Systems Review of Systems: All systems reviewed and are unremarkable except as noted in HPI and below Denies headache, nasal congestion, sore throat, cough, chest pain, shortness of breath, palpitations, orthopnea, PND, abdominal pain, diarrhea, constipation, dysuria, frequency, back pain, joint pain or swelling, easy bruising or bleeding, skin lesions or rashes. Physical Exam Physical Exam: General: Sitting upright in her hospital bed. Appears to be in moderate discomfort. Tearful. Does not appear ill or toxic HEENT: Head is AT/NC. Buccal mucosa is moist and pink Neck: No JVD. Negative hepatojugular reflex Cardiac: RRR without M/G/R Lungs: CTA without W/R/R Abdomen: Normoactive X4. Soft and nontender in all quadrants. Exquisite right- sided CVA tenderness Extremities: No peripheral clubbing cyanosis or edema Neuro: A&O X4. Cranial nerves II through XII are grossly intact. No focal neuro deficits Skin: No obvious skin lesions or rashes Psych: Appropriate affect. Pleasant and cooperative Results & Data Results & Data ([facility]) Vital Signs (Past 12 Hours) Vital Signs Temp Pulse Resp BP Pulse Ox 06/22/21 09:00 96 H 28 H 132/58 L 100 06/22/21 08:30 88 20 102/68 98 06/22/21 08:00 80 15 119/73 99 06/22/21 07:30 92 H 15 117/77 98 06/22/21 07:01 96 H 20 115/64 98 06/22/21 07:00 94 H 18 99 06/22/21 06:41 101 H 97 06/22/21 06:28 95 06/22/21 06:10 117 H 21 121/97 98 06/22/21 06:09 36.9 C 93 H 18 121/97 99 Laboratory Results 06/22/21 06:08 06/22/21 06:[address] of A/P: IMPRESSION: 1. Moderate right hydronephrosis due to a 7 mm right ureteropelvic junction calculus. 2. 8 mm nonobstructing calculus at the left ureterovesical junction. Additional 4 mm distal left ureteral calculus. No left hydronephrosis. Code Status & VTE Plan VTE Prophylaxis Plan VTE Prophylaxis will be ordered: Yes PG Care Time/CCT Total # of Minutes Spent Total Time Spent with Patient: Total time spent is greater than 50% in coordination of care (as documented) at patient's floor/unit and/or counseling patient: Coding Level of Care Code 68573 Initial Inpt Care Lvl 1 Diagnoses Hydronephrosis with renal and ureteral calculous obstruction N13.2
--- NOTE | 2021-06-22 09:39 | Urology Consultation ---
Date of Consultation June 22, 2021 Assessment & Plan (1) Hydronephrosis with renal and ureteral calculous obstruction: (2) Right flank pain: 31 year-old female patient admitted with intractable right-flank/abdominal pain secondary to obstructing 7 mm right UPJ calculus. Also noted to have two non obstructing left distal ureteral calculi. - Plan of care reviewed with Dr. Carroll, on-call urologist. - Patient afebrile, hemodynamically stable. - Labs reviewed - mild elevation in white count (11.94), creatinine stable. - Urine culture pending. - Given her intractable right flank/abdominal pain with associated n/v in the context of an obstructing right UPJ stone with two additional nonobstructing left distal ureteral calculi, will proceed with OR for cystoscopy, bilateral retrograde pyelogram and bilateral stent placement. - Risks and benefits to be reviewed with patient by Dr. Carroll. OR notified. COVID-19 negative. Covered with scheduled IV Ciprofloxacin. - Plan to keep NPO. - Continue supportive care, antibiotics, and pain management. - Will continue to follow. Supervising Physician Co-Signing Physician Notes 31-year-old female with a right proximal obstructing ureteral calculus and 2 distal left ureteral calculi. Afebrile with white count of 11.9, creatinine 0.81 and urinalysis that showed 1+ bacteria. Plan for cystoscopy with bilateral retrograde pyelogram and bilateral ureteral stent placement. Explained that we do not treat stones in the acute setting when there is a concern for bacteria. Risks and benefits discussed and consent obtained. History of Present Illness Reason for Consultation: bilateral ureteral calculi with hydronephrosis History of Present Illness 31 year-old female patient, with past medical history significant for arthritis, renal stones, Crohns, PCOS, depression with anxiety, and other comorbidities who presented to the ER today with complaints of right-sided abdominal pain with associated nausea/vomiting. Patient was found to have obstructing right UPJ calculus in addition to two nonobstructing left ureteral calculi and was adm itted to medicine service for further evaluation. Urology consulted due to ureteral calculi with associated hydronephrosis. [place] [facility] [place]. Our service was consulted in October 2020 during her due to left-sided flank pain. No intervention was performed during that time. Chart review: Patient afebrile Wbc 11.94 Hgb 12.8 Creatinine 0.81 Urinalysis with trace leukocytes, 10-30 wbc, >30 rbc, >30 epi, +1 bacteria Urine culture pending Imaging - CT abd/pelvis without contrast - IMPRESSION: 1. Moderate right hydronephrosis due to a 7 mm right ureteropelvic junction calculus. 2. 8 mm nonobstructing calculus at the left ureterovesical junction. Additional 4 mm distal left ureteral calculus. No left hydronephrosis. Patient seen and examined at bedside in the ED this morning. Awake, resting in bed on arrival. No acute distress. Still with severe right flank pain, managing with IV pain medication. No fevers or chills. Reports nausea/vomiting earlier this morning. Has sips of water overnight. Voiding without issue. Some hematuria and dysuria. Feels she is emptying her bladder. Hx of stones, has not required intervention in the past. Reports a distant cousin had stones, but otherwise unremarkable family hx. Reports several UTI's over the past couple of months. Offered no additional concerns at time of exam Allergies Allergy/AdvReac Type Severity Reaction Status Date / Time Citalopram Analogues Allergy Intermediate hives Verified 06/22/21 07:26 nickel Allergy Mild Rash Verified 06/22/21 07:26 sertraline Allergy Mild hives Verified 06/22/21 07:26 Home Medications Medication Instructions Recorded Confirmed Type albuterol sulfate 90 mcg/actuation 1 inh INHALATION QID PRN 02/13/21 06/22/21 History aerosol inhaler Patient History Medical History Abnormal colonoscopy Anemia HX>DURING Asthma HAS NOT USED INHALER FOR OVER 2 YEARS Asthma Bipolar disorder Bipolar disorder, unspecified (06/04/12) Chlamydia Colitis (07/06/11) Crohns disease Depression with anxiety Diverticulosis of colon without diverticulitis (06/04/12) Endometriosis determined by laparoscopy Esophageal reflux (06/04/12) History of kidney stones History of tobacco use Hx gestational diabetes Polycystic ovarian syndrome Polycystic ovaries (06/04/12) Tobacco use disorder (06/04/12) Surgical History H/O bilateral salpingectomy H/O dilation and curettage History of colonoscopy History of tonsillectomy and adenoidectomy S/P laparoscopy [place] teeth removed Family History Aunt Migraine headache Brother Heart murmur Aunt Breast cancer Grandmother (Paternal) Brain cancer Colorectal cancer Other No family history of adverse response to anesthesia Denies family history of Ovarian cancer Social History Smoking Status: Former smoker Second Hand Exposure: No; Do You Dip or Chew Tobacco: No; Tobacco Cessation Education Requested by Patient: No Hx Alcohol Use: No Hx Substance Use: No Preferred Language: Guamanian Communication Ability: Effective Mandrel Maker Required: No Beliefs That Will Affect Care: None marital status: marital status details: Chris Mckeon (30) [phone] Current Living Situation: Spouse Current Living Situation Comment: lives with current occupational status: employed current occupation: [employer] Other Information That Helps Us Care for You: No Feels Safe at Home: Yes Safety Concerns: Feels Safe At This Time Assistive Devices: None Review of Systems Review of Systems: All systems reviewed & are unremarkable except as noted in HPI & below Physical Exam Constitutional: well developed and well nourished; no acute distress Neck: normal visual inspection Respiratory: normal respiratory effort and able to speak in complete sentences; no labored breathing and no audible wheezes Gastrointestinal (Abdomen): Inspection/Auscultation: abdomen normal to inspection; abdomen not distended Musculoskeletal: Head/Neck/Chest: normocephalic Skin: No visible rashes or lesions to exposed skin areas Neurologic: moves all extremities and awake Psychiatric: Orientation: alert, oriented x 3 and cooperative Genitourinary: + CVA tenderness (right) Results & Data ([facility]) Vital Signs (Past 12 Hours) Vital Signs Temp Pulse Resp BP Pulse Ox 06/22/21 09:00 96 H 28 H 132/58 L 100 06/22/21 08:30 88 20 102/68 98 06/22/21 08:00 80 15 119/73 99 06/22/21 07:30 92 H 15 117/77 98 06/22/21 07:01 96 H 20 115/64 98 06/22/21 07:00 94 H 18 99 06/22/21 06:41 101 H 97 06/22/21 06:28 95 06/22/21 06:10 117 H 21 121/97 98 06/22/21 06:09 36.9 C 93 H 18 121/97 99 PG Care Time/CCT Total # of Minutes Spent Total Time Spent with Patient: Total time spent is greater than 50% in coordination of care (as documented) at patient's floor/unit and/or counseling patient: Coding Level of Care Code 09451 Inpt Consult Level 4 Diagnoses Hydronephrosis with renal and ureteral calculous obstruction N13.2 Right flank pain R10.9
[2021-06-22] MEDS ORDERED: ALUMINUM/MAGNESIUM SUSP 30 ML UDC PO PRN (09:41)
[2021-06-22] MEDS ORDERED: ALBUTEROL HFA 8 GM INHALER INH PRN (09:41)
[2021-06-22] MEDS ORDERED: MAGNESIUM HYDROXIDE SUSP 30 ML UDC PO PRN (09:41)
[2021-06-22] MEDS: LACTATED RINGER'S 1,000 ML IV SCH ×2 (09:58→17:48)
[2021-06-22] MEDS: ONDANSETRON INJ 2 MG/ML 2 ML VIAL IV PRN ×3 (10:02→22:45)
[2021-06-22] MEDS: HYDROmorphone INJ 0.5 MG/0.5 ML SYR IV PRN ×3 (10:04→21:55)
[2021-06-22] MEDS: CIPROFLOXACIN / D5W 400 MG/200 ML BAG IV SCH ×2 (10:40→21:33)
[2021-06-22] MEDS ORDERED: fentaNYL citrate 100 MCG/2 ML VIAL IV PRN (12:32)
[2021-06-22] MEDS ORDERED: ONDANSETRON INJ 2 MG/ML 2 ML VIAL IV PRN (12:32)
[2021-06-22] MEDS ORDERED: HYDROmorphone INJ 1 MG/ML SYRINGE IV PRN (12:32)
[2021-06-22] MEDS ORDERED: ePHEDrine sulfate 50 MG/ML AMP IV PRN (12:32)
[2021-06-22] MEDS ORDERED: ATROPINE SULFATE 0.1 MG/ML 10ML SYR IV PRN (12:32)
--- NOTE | 2021-06-22 12:36 | Anesthesiology Consultation ---
Date of Service June 22, 2021 Assessment & Plan (1) Encounter for pre-operative examination: Chart Review Chart Review: Acceptable Risk for Surgery and Patient NOT seen in Pre Admission Testing Consults Requested none History Surgery Operation Date: 06/22/21 13:30 Proposed Procedures p Cystoscopy, Bilateral Retrgorade Pyelogram, Bilateral Stent Placements - Shamir Carroll MD Height/Weight Height: 5 ft 4 in Weight: 109 kg Allergies Allergy/AdvReac Type Severity Reaction Status Date / Time Citalopram Analogues Allergy Intermediate hives Verified 06/22/21 07:26 nickel Allergy Mild Rash Verified 06/22/21 07:26 sertraline Allergy Mild hives Verified 06/22/21 07:26 Medications Home Medications Medication Instructions Recorded Confirmed Last Taken albuterol sulfate 90 mcg/actuation 1 inh INHALATION QID PRN 02/13/21 06/22/21 Unknown aerosol inhaler Active Medications Generic Name Dose Route Start Last Admin Trade Name Freq PRN Reason Stop Dose Admin Hydromorphone HCl 0.5 mg 06/22/21 09:37 06/22/21 10:04 Hydromorphone Inj 0.5 Mg/0.5 Ml Syr IV 07/06/21 09:36 0.5 mg Q2H PRN Administration Pain Ciprofloxacin 400 mg in 200 mls @ 100 mls/hr 06/22/21 10:00 06/22/21 10:40 Cipro / D5w IV 07/02/21 09:59 100 mls/hr Q12H CORDELIA Administration Protocol Lactated Ringer's 1,000 mls @ 125 mls/hr 06/22/21 10:00 06/22/21 09:58 Lr IV 07/22/21 09:59 125 mls/hr .Q8H CORDELIA Administration Ondansetron HCl 4 mg 06/22/21 08:35 06/22/21 10:02 Ondansetron Inj 2 Mg/Ml 2 Ml Vial IV 07/22/21 08:34 4 mg Q6H PRN Administration nausea/vomiting NPO Date Last Intake of Fluids: 06/21/21 Time Last Intake of Fluids: 00:00 Last Intake of Fluids Comment: 06/21/21 Date Last Intake of Solids: 06/21/21 Time Last Intake of Solids: 17:00 Past Medical History Medical History Abnormal colonoscopy Anemia HX>DURING Asthma HAS NOT USED INHALER FOR OVER 2 YEARS Asthma Bipolar disorder Bipolar disorder, unspecified (06/04/12) Chlamydia Colitis (07/06/11) Crohns disease Depression with anxiety Diverticulosis of colon without diverticulitis (06/04/12) Endometriosis determined by laparoscopy Esophageal reflux (06/04/12) History of kidney stones History of tobacco use Hx gestational diabetes Polycystic ovarian syndrome Polycystic ovaries (06/04/12) Tobacco use disorder (06/04/12) Exercise / Class Metabolic Activity II 4-5 Yardwork/Stairs/Walk up hill Past Family History Family History Aunt Migraine headache Brother Heart murmur Aunt Breast cancer Grandmother (Paternal) Brain cancer Colorectal cancer Other No family history of adverse response to anesthesia Denies family history of Ovarian cancer Past Surgical History Surgical History H/O bilateral salpingectomy H/O dilation and curettage History of colonoscopy History of tonsillectomy and adenoidectomy S/P laparoscopy [place] teeth removed Past Anesthesia History No Hx of Anesthesia Complications and No Family Hx of Anesthesia Complications History of PONV No Hx of PONV and No Hx of Motion Sickness Social History Smoking Status: Former smoker tobacco type: cigarettes Do You Dip or Chew Tobacco: No Hx Alcohol Use: No Hx Substance Use: No substance use type: does not use Physical Exam Vital Signs Last Vital Signs Temp 37.1 C 06/22/21 12:29 Pulse 72 06/22/21 12:29 Resp 18 06/22/21 12:29 BP 92/50 L 06/22/21 12:29 Pulse Ox 100 06/22/21 12:29 Testing Laboratory Results 06/22/21 06:08 06/22/21 06:08 Urine Color Yellow 06/22/21 07:48 Urine Appearance Clear (Clear) 06/22/21 07:48 Urine pH 6.5 (4.5-7.5) 06/22/21 07:48 Ur Specific [place] 1.011 (1.000-1.030) 06/22/21 07:48 Urine Protein 1+ (Negative) H 06/22/21 07:48 Urine Glucose (UA) Negative (Negative) 06/22/21 07:48 Urine Ketones Negative (Negative) 06/22/21 07:48 Urine Nitrite Negative (Negative) 06/22/21 07:48 Ur Leukocyte Esterase Trace (Negative) H 06/22/21 07:48 Urine WBC (Auto) 10-30 /hpf (0-5) H 06/22/21 07:48 Urine RBC (Auto) >30 /hpf (0-4) H 06/22/21 07:48 U Hyaline Cast (Auto) 1-5 /lpf (0-5) 06/22/21 07:48 U Epithel Cells (Auto) >30 /lpf (0-5) H 06/22/21 07:48 Urine Bacteria (Auto) 1+ (Negative) H 06/22/21 07:48
[2021-06-22] MEDS ORDERED: fentaNYL citrate 100 MCG/2 ML VIAL ONE (12:55)
[2021-06-22] MEDS ORDERED: MIDAZOLAM HCL 1 MG/ML 2ML VIAL ONE (12:55)
[2021-06-22] MEDS ORDERED: PROPOFOL IV EMULSION 10 MG/ML 20 ML VIAL IV ONE (12:55)
[2021-06-22] MEDS ORDERED: LIDOCAINE 2% 2 ML VIAL/AMP(20MG/ML) INFIL ONE (12:55)
[2021-06-22] MEDS ORDERED: DIATRIZOATE MEGLUMINE 30% 100ML VIAL INSTIL PRN (12:58)
--- NOTE | 2021-06-22 13:50 | Post Operative Brief Note ---
PG Immediate Post Op with CF Date of Surgery June 22, 2021 Pre & Post Diagnosis Operation Date: 06/22/21 13:30 Pre-Op Diagnosis: OBSTRUCTING NEPHROLITHIASIS WITH HYDRONEPHROSIS Post-Op Diagnosis: OBSTRUCTING NEPHROLITHIASIS WITH HYDRONEPHROSIS I identified the patient and participated in the time-out.: Yes Procedure Operation Date: 06/22/21 13:30 Actual Procedures p Cystoscopy, Bilateral Retrgorade Pyelogram with radiographic interpretation, Bilateral Stent Placements(Bilateral) - Shamir Carroll MD Surgeon Shamir Carroll MD Truck Sales Manager None Estimated Blood Loss 0 Findings See Below Stents in appropriate position. Stone at left UO. Drains Other (Bilatera 6x26 stents )
--- NOTE | 2021-06-22 13:58 | Operative Report ---
PG Post Operative Report Pre & Post Diagnosis Operation Date: 06/22/21 13:30 Pre-Op Diagnosis: OBSTRUCTING NEPHROLITHIASIS WITH HYDRONEPHROSIS Post-Op Diagnosis: OBSTRUCTING NEPHROLITHIASIS WITH HYDRONEPHROSIS I identified the patient and participated in the time-out.: Yes Procedure Operation Date: 06/22/21 13:30 Actual Procedures p Cystoscopy, Bilateral Retrgorade Pyelogram with radiographic interpretation Bilateral Stent Placements(Bilateral) - Shamir Carroll MD Surgeon Sahmir Carroll MD Floor Covering Printer None Estimated Blood Loss 0 Findings See Below Stone at left UO. Bilateral stents in appropriate position Specimens None Drains Bilateral 6 [place]ian by 26 cm stents Anesthesia Type MAC Complications None Indications 31-year-old female with right proximal obstructing ureteral calculus and 2 distal left ureteral calculi. Bacteria in urine so taken to the OR for bilateral stent placement. Description of Procedure After informed consent was obtained, the patient was transported to the operative suite. General anesthesia was induced. They were placed in dorsal lithotomy position and prepped and draped in sterile fashion. They received preoperative ciprofloxacin. An appropriate surgical timeout was performed. 22 [place]ian rigid cystoscope was inserted per urethra in the bladder. I turned my attention left ureteral orifice and intubated this with a sensor wire as the stone was and then advanced a 5 [place] open-ended catheter over the sensor wire and removed the wire. A left retrograde pyelogram was shot which showed no real hydronephrosis on the left. Sensor wire was advanced to the upper pole of the kidney and then I attempted to place 6 [place]ian by 24 cm left ureteral stent but this was too short. I removed this, replaced the sensor wire and then deployed a 6 [place] by 26 cm left ureteral stent with a good proximal coil in the kidney noted under fluoroscopy and a good distal coil in the bladder noted under direct visualization. I turned my attention the right ureteral orifice and intubated this with a sensor wire and advanced a 5 [place] open-ended catheter over the wire. Sensor wire was removed and shot a right retrograde pyelogram which showed mild right hydronephrosis. Sensor wire was advanced into the upper pole of the kidney and confirmed under fluoroscopic guidance. I deployed a 6 [place]ian by 26 cm right ureteral stent with a good proximal coil in the right kidney noted under fluoroscopic guidance and a good distal coil noted in the bladder under direct visualization. The bladder was emptied and the scope was removed. This concluded the end of the case. All counts correct at the end of the case. I was present scrubbed and actively participated for the entirety of the procedure. I attest to the content of the Intraoperative Record and any orders documented therein. Any exceptions are noted below.
--- NOTE | 2021-06-22 15:09 | Fluoroscopy Report ---
FL retrograde includes kub CLINICAL HISTORY: BILATERAL ureteral STENT PLACEMENT COMPARISON STUDY: Abdomen and pelvis CT 06/22/2021. FLUOROSCOPY TIME: 30 seconds. FINDINGS: 3 fluoroscopic spot images of the abdomen and pelvis demonstrate retrograde opacification o f the bilateral renal collecting systems followed by placement of bilateral ureteral stents. Only the proximal to midportion of the stents are identified and appear good position. IMPRESSION: Fluoroscopic assistance provided for bilateral ureteral stent placement as above. ACT 112: Negative or not required by law. Electronically signed by: Ángel Raygoza M.D. 06/22/2021 3:08 PM
--- NOTE | 2021-06-22 15:18 | Anesthesiology Progress Note ---
Date of Service June 22, 2021 Anesthesia Post Procedure Vital Signs Vital Signs: Temp Pulse Pulse Pulse Pulse Resp BP 06/22/21 14:56 75 06/22/21 14:49 36.7 C 71 18 06/22/21 14:35 37.0 C 77 16 06/22/21 14:20 89 17 06/22/21 14:10 37.1 C 83 15 06/22/21 14:00 37.1 C 95 H 12 06/22/21 12:29 37.1 C 72 18 06/22/21 11:06 36.7 C 80 18 06/22/21 09:55 66 06/22/21 09:42 36.8 C 73 18 06/22/21 09:00 96 H 28 H 132/58 L 06/22/21 08:30 88 20 102/68 06/22/21 08:00 80 15 119/73 06/22/21 07:30 92 H 15 117/77 06/22/21 07:01 96 H 20 115/64 06/22/21 07:00 94 H 18 06/22/21 06:41 101 H 06/22/21 06:28 06/22/21 06:10 117 H 21 121/97 06/22/21 06:09 36.9 C 93 H 18 121/97 BP BP Pulse Ox 06/22/21 14:56 06/22/21 14:49 102/66 97 06/22/21 14:35 118/71 99 06/22/21 14:20 121/73 100 06/22/21 14:10 110/70 98 06/22/21 14:00 115/58 L 96 06/22/21 12:29 92/50 L 100 06/22/21 11:06 97/62 L 97 06/22/21 09:55 06/22/21 09:42 101/75 98 06/22/21 09:00 100 06/22/21 08:30 98 06/22/21 08:00 99 06/22/21 07:30 98 06/22/21 07:01 98 06/22/21 07:00 99 06/22/21 06:41 97 06/22/21 06:28 95 06/22/21 06:10 98 06/22/21 06:09 99 Transfer of Care Handoff Completed per policy Notes Mental Status: alert / awake / arousable and participated in evaluation Patient Amnestic to Procedure: Yes Nausea / Vomiting: adequately controlled Pain: adequately controlled Airway Patency, RR, SpO2: stable & adequate BP & HR: stable & adequate Hydration State: stable & adequate Anesthetic Complications: no major complications apparent and Pt Satisfied with anesthetic care
[2021-06-22] MEDS ORDERED: PHENAZOPYRIDINE HCL 200 MG TAB PO STA (16:17)
[2021-06-22] MEDS: ACETAMINOPHEN 325 MG TAB PO PRN (20:21)
[2021-06-23] MEDS: LACTATED RINGER'S 1,000 ML IV SCH ×2 (04:18→11:36)
[2021-06-23] MEDS: HYDROmorphone INJ 0.5 MG/0.5 ML SYR IV PRN (05:36)
[2021-06-23] MEDS: ONDANSETRON INJ 2 MG/ML 2 ML VIAL IV PRN (07:45)
--- NOTE | 2021-06-23 08:24 | Urology Progress Note ---
Date of Service June 23, 2021 Assessment & Plan (1) Hydronephrosis with renal and ureteral calculous obstruction: (2) Right flank pain: Plan: 31 year-old female patient admitted with intractable right-flank/abdominal pain secondary to obstructing 7 mm right UPJ calculus. Also noted to have two non obstructing left distal ureteral calculi. - POD #1 s/p cystoscopy, b/l ureteral stent placement. - Tolerating the ureteral stents with minimal bother. - Afebrile, hemodynamically stable. - Urine culture pending. On empiric Cipro, follow culture. - Voiding spontaneously without issue. - Ok for discharge from perspective. - Recommend d/c with course of PO antibiotics, Tamsulosin, prn Pyridium and prn pain medication for stent management - Will arrange outpatient follow-up with our service for definitive stone treatment. - Thank you for allowing us to participate in the acute care of Mrs. Mckeon. Please reconsult us with additional questions, concerns or changes in patient status. Admission and Anticipated Discharge Date Admission Date: June 22, 2021 Subjective Pt examined at bedside this AM. Awake, resting in bed on arrival. No acute distress. Reports an improvement in her right flank pain following stent placement. Having some mild b/l back pain. No fevers or chills. Some nausea this morning, had IV zofran. No vomiting. Tolerated breakfast. Voiding without issue. Some hematuria/dysuria as expected. Review of Systems Constitutional: as per Subjective / HPI Gastrointestinal: as per Subjective / HPI Genitourinary: as per Subjective / HPI Physical Exam Constitutional: no acute distress Respiratory: no respiratory distress and no labored breathing Gastrointestinal (Abdomen): Inspection/Auscultation: abdomen normal to inspection Neurologic: moves all extremities and awake Psychiatric: Orientation: alert, oriented x 3 and cooperative Results & Data ([facility]) Vital Signs (Past 12 Hours) Vital Signs Temp Pulse Pulse Resp BP BP Pulse Ox 06/23/21 07:12 36.7 C 73 18 110/75 98 06/23/21 02:46 36.9 C 73 18 112/73 98 06/22/21 23:18 36.8 C 77 18 125/83 97 06/22/21 22:17 81 06/22/21 21:36 77 PG Care Time/CCT Total # of Minutes Spent Total Time Spent with Patient: Total time spent is greater than 50% in coordination of care (as documented) at patient's floor/unit and/or counseling patient: Coding Level of Care Code 01579 Subseq Hosp Care Lvl 2 Diagnoses Hydronephrosis with renal and ureteral calculous obstruction N13.2 Right flank pain R10.9
[2021-06-23] MEDS ORDERED: ENOXAPARIN INJ 40 MG/0.4 ML SYR SQ SCH (09:00)
[2021-06-23] MEDS: CIPROFLOXACIN / D5W 400 MG/200 ML BAG IV SCH (09:23)
[2021-06-23] MEDS: ACETAMINOPHEN 325 MG TAB PO PRN (09:28)
--- NOTE | 2021-06-23 09:38 | Discharge Summary ---
Date of Service June 23, 2021 Admission HPI Per Admitting Provider Mrs. Mckeon is a 31y/o WF with a known h/o nephrolithiasis, presented to the ED c/o Right flank Pain, N/V. Was in her usual state of health when she went to bed lastnight. Awoke at 0300 with severe right sided flank pain, N/V, chills and gross hematuria. Denies dysuria. Has known nephrolithiasis as admitted 11/08 with a nonobstructing left sided stone. Was at the time and she was treated with conservative mgmt. Has not had any issues since and hasn't followed up with urology. Is not 6 months post- and is not . Symptoms were abrupt in onset. Pt afebrile and HD stable. Lab data unremarkable (normal WBC, renal function and UA is not grossly infected). CT shows right sided 7mm UJV obstructing stone with moderate hydronephrosis along with an 8mm nonobstructing left sided UVJ and 4mm nonobstructing ureteral stone. ED discussed case with urology and plan is for B/L ureteral stents today. Patient will be hospitalized for adequate pain control and empiric abx therapy. Principal Diagnosis 1. Obstructing nephrolithiasis 2. Hydronephrosis 3. S/p bilateral ureteral stent insertion Discharge Exam General: Resting comfortably in her hospital bed. She does not appear ill or toxic. NAD. HEENT: Head is AT/NC. Buccal mucosa is moist and pink Neck: No JVD. Negative hepatojugular reflex Cardiac: RRR without M/G/R Lungs: CTA without W/R/R Abdomen: Normoactive X4. Soft and nontender in all quadrants. Extremities: No peripheral clubbing cyanosis or edema Neuro: A&O X4. Cranial nerves II through XII are grossly intact. No focal neuro deficits Skin: No obvious skin lesions or rashes Psych: Appropriate affect. Pleasant and cooperative Discharge Data Allergies Allergy/AdvReac Type Severity Reaction Status Date / Time Citalopram Analogues Allergy Intermediate hives Verified 06/22/21 07:26 nickel Allergy Mild Rash Verified 06/22/21 07:26 sertraline Allergy Mild hives Verified 06/22/21 07:26 Consultations 06/22/21 08:08 Consult Urology Stat 06/22/21 08:25 ED Decision to Admit Stat Procedures Performed Operation Date: 06/22/21 13:30 Actual Procedures p Cystoscopy, Bilateral Retrgorade Pyelogram, Bilateral Stent Placements(Bilateral) - Shamir Carroll MD Ordered Studies 06/22/21 FL retrograde includes kub Routine 06/22/21 06:16 CT abd pelvis wo con Stat IMPRESSION: 1. Moderate right hydronephrosis due to a 7 mm right ureteropelvic junction catarina culus. 2. 8 mm nonobstructing calculus at the left ureterovesical junction. Additional 4 mm distal left ureteral calculus. No left hydronephrosis. Hospital Course (1) Hydronephrosis with renal and ureteral calculous obstruction: 31 y/o with known h/o nephrolithiasis presented with abrupt onset of R sided flank pain, N/V - afebrile and HD stable - normal WBC and metabolic panel - UA not grossly but empirically placed on Cipro - CT showing 7 mm right UVJ obstructing stone with moderate hydronephrosis and 8 mm nonobstructing calculus at the left UVJ with additional 4 mm distal left ureteral calculus. No left-sided hydronephrosis - Urology on boardappreciate assistance. Patient is s/p bilateral ureteral catrachita nt insertion done 06/22 - received IV Hydration, Dilauded for pain and pyridium for stent discomfort - Continue IV Dilaudid as needed for pain control along with antiemetics - seen on daily rounds 06/23: pain controlled, afebrile and HD stable. - D/C with continue Flomax, Pyridium for stent discomfort, hydrocodone as need for pain (can be habit forming) and Ampicillin (as urine culture positive for Enterococcus) - Follow-up with urology for determination of stone management (? Lithotripsy) Plan of care to be D/W and seen and and agreed upon by Dr. Lassiter. Total Time Total Time Spent Total Time Spent (In Minutes): 1. Obstructing nephrolithiasis 2. Hydronephrosis 3. S/p bilateral ureteral stent insertion Discharge Plan Discharge Items Patient Disposition: Home - Self-Care Reason For Visit: OBSTRUCTING NEPHROLITHIASIS WITH HYDRONEPHROSIS Discharge Diagnosis: 1. Obstructing nephrolithiasis 2. Hydronephrosis 3. S/p bilateral ureteral stent insertion Activity: Resume your previous activity Non-emergency contact: Primary Care Provider and Urologist Call non-emergency contact if: you have any medication questions, your pain is not controlled and you have a fever Follow-up/Referrals: Barbara Carreon CRNP [Primary Care Provider] - 07/03/21 2:00 pm Shamir Carroll MD [Physician] - (PLEASE CALL DR CARROLL'S OFFICE TO SCHEDULE A FOLLOW-UP UROLOGY APPOINTMENT WITHIN 7 DAYS.) Diet: Regular Fluids: 2000ml (8 cups) Diet Comment: push your fluids Addtl Attending Provider Instructions: You were hospitalized due to an obstructing kidney stone causing hydronephrosis. In addition, you had to other nonobstructing stones. You underwent bilateral ureteral stent placement and need to follow-up with urology as an outpatient to determine follow-up management necessary for the stones (as the stones remain). You will likely have a procedure to break up the stones in order to allow easier passage. Following this, you may have to have the stents exchanged versus completely removed. This is at the discretion of urology. Continue medications as outlined: - antibiotics empirically (Ampicillin 500mg 4x/day x 7 days) - Pyridium 200 mg 3 times daily as needed for stent discomfort (this will make your urine bright orange) - Flomax 0.4 mg daily (to help with relaxation of the bladder and easier passage of the stones) - [place] 5/325-1 tablet by mouth every 4 hours for pain 1-5, 2 tablets by mouth every 4 hours for pain 6-10. Please note that [place] (hydrocodone) may be habit-forming and can be addictive. Take it only as needed for pain that is not tolerable with ibuprofen/Tylenol. Please do not drive or operate heavy machinery when taking [place] Follow-up with urology within 1 week Follow-up with PCP within 7 to 10 days Return to the ED for uncontrolled pain or if you develop any fevers Pending Studies at Discharge: Yes Studies:: Urine culture Stand-Alone Forms: My [facility] Medications and DC Order Prescriptions: New hydrocodone-acetaminophen 5-325 mg tablet 1 tab PO Q4H Qty: 36 RF: 0 tamsulosin [Flomax] 0.4 mg capsule 0.4 mg PO DAILY Qty: 30 RF: 0 phenazopyridine [Pyridium] 100 mg tablet 100 mg PO Q8H PRN (Reason: pain/ stent discomfort ) Qty: 20 RF: 0 ampicillin 500 mg capsule 500 mg PO QID Qty: 28 RF: 0 Continued albuterol sulfate 90 mcg/actuation Hfa Aerosol Inhaler 1 inh INHALATION QID PRN (Reason: SHORT OF BREATH) RF: 0 Discharge Orders: Discharge Order (Routine); Ordered 06/22/21 Ordered By: Brittany Resendez/Other Patient Handouts: Having a Ureteral Stent Admission Data Admit Date/Time: 06/22/21 08:35 Attending Provider: Will Lassiter Admit Provider: Will Lassiter Primary Care Provider: Barbara Carreon Other Providers: Andrea Pop ; Wlil Lassiter Other Interventions: Discharge Summary Assessment (RN) Last Done: 06/23/21 09:34 Coding Level of Care Code D/C DAY MANAGEMENT >30 MINS Diagnoses Hydronephrosis with renal and ureteral calculous obstruction N13.2
[2021-06-23] MEDS ORDERED: CIPROFLOXACIN 500 MG TAB PO STA (10:14)
== END 2021-06-23 12:01 | disposition home or self-care (01) | DRG 661 ==
LOC: ED 06:03 → 2N 08:35

== ENCOUNTER 2022-09-06 08:06 | Inpatient (IN) ==
[2022-09-06] MEDS ORDERED: SODIUM CHLORIDE 0.9% 1000ML 1,000 ML IV STA (08:27)
[2022-09-06] MEDS ORDERED: MoRPHine SULFATE 10 MG/ML CARP/VIAL IV STA (08:31)
[2022-09-06] MEDS ORDERED: PROMETHAZINE 6.25 MG/50.25 ML BAG IV STA (08:31)
--- NOTE | 2022-09-06 08:34 | Emergency Department Note ---
Impression & Plan Acute left flank pain, Hydronephrosis, Renal colic, Vomiting, Hematuria ED Provider Note NAME: FROILAN PASCAL AGE: 32 SEX: F : 1990 ARRIVES VIA: Ambulance INFORMANT: [Patient] ED PROVIDER(S): [Art Maldonado MD] CHIEF COMPLAINT: Flank pain HISTORY OF PRESENT ILLNESS: The patient is a 32-year-old female who presents to the ED with intermittent flank pain for the last month. Things would improve with time and [id number] pain medications. In the last several hours, the pain has been quite intense and severe in the left flank and the left groin. She has had nausea and vomiting. She woke this morning with the pain. She presents by EMS, in route, she was given 30 mg of IV Toradol and 4 mg of IV Zofran. The Toradol helped the pain slightly. The patient has noted blood in her urine as of yesterday. No urinary burning. No fever. No cough or congestion. The patient has had kidney stones past before, she thinks a stone is the problem again today PMHx/PSHx: See Below SOCIAL HISTORY: See Below. PHYSICAL EXAM: GENERAL: Patient is in moderate distress from pain. Standing at the side of the stretcher, tearful. HEENT: No acute trauma, normocephalic atraumatic, mucous membranes moist, no nasal congestion. NECK: No stridor, no adenopathy, no meningismus, trachea is midline. LUNGS: Clear to auscultation bilaterally, no wheeze, no rhonchi, breath sounds equal. HEART: Without murmurs gallops or rubs, regular rate and rhythm. ABDOMEN: Soft, no peritonitis. EXTREMITIES: No cyanosis or edema, full range of motion of all the joints without pain or difficulty, no signs for acute trauma. NEUROLOGIC: Oriented x 3, no acute motor or sensory deficits, no focal weakness. SKIN: No rash, no jaundice, no diaphoresis. Back: Left flank discomfort to percussion DIFFERENTIAL DIAGNOSIS: Renal colic, hydronephrosis, UTI, pyelonephritis, renal failure, musculoskeletal pain, ovarian cyst, among others. EMERGENCY DEPARTMENT COURSE/PROCEDURES: Prior/Outside records reviewed: EMS notes. MEDICAL DECISION MAKING: There is no leukocytosis or concerning anemia. There is a normal platelet coun t. No renal failure or significant electrolyte abnormality. No concerning liver enzyme elevation. No evidence for pancreatitis. testing returned negative. Urinalysis showed hematuria, no infection. COVID test returned negative. Abdominal and pelvis CT shows a proximal 8 mm left ureteral stone with hydronephrosis. On exam, the patient was tearful and quite uncomfortable. The patient had received Toradol and Zofran in route. This really had not helped her pain significantly. She was given IV Phenergan for nausea, IV saline for hydration. She received IV morphine as needed for pain control. The patient does feel better but still has discomfort. She does not feel she is safe for discharge home, she does not think she can manage this pain. In the past, when she has had a stone this large, she has required urologic intervention. I did give the patient a dose of oral Flomax. I did speak with case management, I did speak with urology. Patient will be hospitalized for pain control and urologic intervention. The on-call hospitalist was consulted. DISPOSITION: Patient's presentation and findings warrant a hospital stay. Past Med/Surg History Medical History Anemia HX>DURING Asthma HAS NOT USED INHALER FOR "QUITE SOME TIME" Bipolar disorder NO CURRENT MEDS Chlamydia hx Colitis (07/06/11) hx Crohns disease Depression with anxiety Diverticulosis of colon without diverticulitis (06/04/12) hx Endometriosis determined by laparoscopy Esophageal reflux (06/04/12) History of COVID-2021- ASYMPTOMATIC-INCIDENTAL FINDING History of kidney stones History of tobacco use Hx gestational diabetes Hx of Clostridium difficile infection dx [facility] in 2011, admitted to hospital, tx w/abx-cleared Obesity Polycystic ovarian syndrome Polycystic ovaries (06/04/12) Surgical History H/O bilateral salpingectomy H/O dilation and curettage History of colonoscopy MULTIPLE History of tonsillectomy and adenoidectomy S/P laparoscopy [place] teeth removed Family History Aunt Migraine headache Brother Heart murmur Aunt Breast cancer Grandmother (Paternal) Brain cancer Colorectal cancer Other No family history of adverse response to anesthesia Denies family history of Ovarian cancer Social History Smoking Status: Former smoker Second Hand Exposure: No; Do You Dip or Chew Tobacco: No; Hx Alcohol Use: No Hx Substance Use: No Preferred Language: Montenegrin Communication Ability: Effective Operational Risk Analyst Required: No Beliefs That Will Affect Care: None marital status: marital status details: Chris Pascal (30) [phone] Current Living Situation: Spouse and Family Current Living Situation Comment: lives with current occupational status: employed current occupation: [employer] Feels Safe at Home: Yes Assistive Devices: None Allergies Allergies Allergy/AdvReac Type Severity Reaction Status Date / Time Citalopram Analogues Allergy Intermediate hives Verified 05/09/22 08:12 nickel Allergy Mild Rash Verified 05/09/22 08:12 sertraline Allergy Mild hives Verified 05/09/22 08:12 Home Meds Home Medications Medication Instructions Recorded Confirmed albuterol sulfate 90 mcg/actuation 1 inh inhalation QID PRN SHORT OF 02/13/21 09/06/22 aerosol inhaler BREATH biotin 10,000 mcg chewable tablet 10,000 mcg PO QAM 05/03/22 09/06/22 (Hair, Skin and Nails (biotin)) Results & Data (ED) Vital Signs Vital Signs - 24 hr 09/06/22 08:08 09/06/22 09:09 09/06/22 09:07 Temperature 36.6 C Temperature Source Oral Pulse Rate 102 H 80 Pulse Rate [Left Finger] 89 Pulse Rhythm Regular Respiratory Rate 20 16 Respiratory Effort / Characteristics Respiratory Depth Normal Blood Pressure 102/66 Blood Pressure [Right Arm] 102/66 Blood Pressure Mean 78 Blood Pressure Mean [Right Arm] 78 Pulse Oximetry 99 94 Oxygen Delivery Method Room Air Room Air Sepsis Recent Fever Within 48 Hours No Sepsis New/Unexplained Change in Mental Status No Sepsis Action Taken by Nursing No Action Required 09/06/22 12:11 Temperature Temperature Source Pulse Rate Pulse Rate [Left Finger] 86 Pulse Rhythm Respiratory Rate 13 Respiratory Effort / Characteristics Non-Labored Respiratory Depth Normal Blood Pressure Blood Pressure [Right Arm] 126/82 Blood Pressure Mean Blood Pressure Mean [Right Arm] 96 Pulse Oximetry 98 Oxygen Delivery Method Sepsis Recent Fever Within 48 Hours Sepsis New/Unexplained Change in Mental Status Sepsis Action Taken by Intermediate Medications Current Medication List: was personally reviewed by nd Laboratory Data Attestation: I reviewed the patient's lab results. 09/06/22 08:12 09/06/22 08:12 Lab Results 09/06/22 09/06/22 09/06/22 Range/Units 08:12 08:12 08:12 WBC 8.10 (4.8-10.8) K/ul RBC 4.97 (4.20-5.40) M/uL Hgb 13.5 (12.0-16.0) g/dl Hct 39.5 (37.0-47.0) % MCV 79.5 L (80.0-100.0) fL MCH 27.2 (25.0-34.0) pg MCHC 34.2 (32.0-36.0) g/dL RDW Std Deviation 39.1 (36.4-46.3) fL RDW Coeff of Margaret 13.6 (11.5-14.5) % Plt Count 277 (130-400) K/uL MPV 9.6 (9.4-12.4) fL Immature Gran % (Auto) 0.4 % Neut % (Auto) 66.4 % Lymph % (Auto) 25.1 % Placer % (Auto) 7.5 % Eos % (Auto) 0.2 % Baso % (Auto) 0.4 % Neut # (Auto) 5.38 (1.40-6.50) K/uL Lymph # (Auto) 2.03 (1.2-3.4) K/uL Placer # (Auto) 0.61 H (0.11-0.59) K/uL Eos # (Auto) 0.02 (0-0.50) K/uL Baso # (Auto) 0.03 (0-0.2) K/uL Immature Gran # (Auto) 0.03 (0.01-0.20) K/uL Sodium 138 (136-145) mmol/L Potassium 3.6 (3.5-5.1) mmol/L Chloride 105 (98-107) mmol/L Carbon Dioxide 22 (21-32) mmol/L Anion Gap 11 (3-11) BUN 17 (6-23) mg/dl Creatinine 0.88 (0.6-1.2) mg/dl Est Cr Clr Drug Dosing Not Reportable Est GFR ( Amer) 101.5 ml/min Est GFR (Non-Af Amer) 87.6 ml/min BUN/Creatinine Ratio 19.3 (10-20) Glucose 101 H (70-99(Fasting)) mg/dl Calcium 9.2 (8.6-10.3) mg/dl Total Bilirubin 0.7 (0.2-1.0) mg/dl AST 15 (13-39) U/L ALT 15 (7-52) U/L Alkaline Phosphatase 81 (34-104) U/L Total Protein 7.3 (6.0-8.3) gm/dl Albumin 4.3 (3.4-5.0) gm/dl Globulin 3.0 (2.5-4.0) gm/dl Albumin/Globulin Ratio 1.4 (0.9-2) Lipase 19 (11-82) U/L HCG, Qual Negative (Negative) Urine Color Urine Appearance (Clear) Urine pH (4.5-7.5) Ur Specific [place] (1.000-1.030) Urine Protein (Negative) Urine Glucose (UA) (Negative) Urine Ketones (Negative) Urine Blood (Negative) Urine Nitrite (Negative) Urine Bilirubin (Negative) Urine Urobilinogen (Negative) Ur Leukocyte Esterase (Negative) Urine WBC (Auto) (0-5) /hpf Urine RBC (Auto) (0-4) /hpf U Hyaline Cast (Auto) (0-5) /lpf U Epithel Cells (Auto) (0-5) /lpf Urine Bacteria (Auto) (Negative) SARS-CoV-2, RNA, NAAT (NEGATIVE) 09/06/22 09/06/22 Range/Units 08:39 09:06 WBC (4.8-10.8) K/ul RBC (4.20-5.40) M/uL Hgb (12.0-16.0) g/dl Hct (37.0-47.0) % MCV (80.0-100.0) fL MCH (25.0-34.0) pg MCHC (32.0-36.0) g/dL RDW Std Deviation (36.4-46.3) fL RDW Coeff of Margaret (11.5-14.5) % Plt Count (130-400) K/uL MPV (9.4-12.4) fL Immature Gran % (Auto) % Neut % (Auto) % Lymph % (Auto) % Placer % (Auto) % Eos % (Auto) % Baso % (Auto) % Neut # (Auto) (1.40-6.50) K/uL Lymph # (Auto) (1.2-3.4) K/uL Placer # (Auto) (0.11-0.59) K/uL Eos # (Auto) (0-0.50) K/uL Baso # (Auto) (0-0.2) K/uL Immature Gran # (Auto) (0.01-0.20) K/uL Sodium (136-145) mmol/L Potassium (3.5-5.1) mmol/L Chloride (98-107) mmol/L Carbon Dioxide (21-32) mmol/L Anion Gap (3-11) BUN (6-23) mg/dl Creatinine (0.6-1.2) mg/dl Est Cr Clr Drug Dosing Est GFR ( Amer) ml/min Est GFR (Non-Af Amer) ml/min BUN/Creatinine Ratio (10-20) Glucose (70-99(Fasting)) mg/dl Calcium (8.6-10.3) mg/dl Total Bilirubin (0.2-1.0) mg/dl AST (13-39) U/L ALT (7-52) U/L Alkaline Phosphatase (34-104) U/L Total Protein (6.0-8.3) gm/dl Albumin (3.4-5.0) gm/dl Globulin (2.5-4.0) gm/dl Albumin/Globulin Ratio (0.9-2) Lipase (11-82) U/L HCG, Qual (Negative) Urine Color Dark Yellow Urine Appearance Cloudy A (Clear) Urine pH 6.0 (4.5-7.5) Ur Specific [place] 1.026 (1.000-1.030) Urine Protein 1+ H (Negative) Urine Glucose (UA) Negative (Negative) Urine Ketones Trace H (Negative) Urine Blood 3+ H (Negative) Urine Nitrite Negative (Negative) Urine Bilirubin Negative (Negative) Urine Urobilinogen Negative (Negative) Ur Leukocyte Esterase Negative (Negative) Urine WBC (Auto) 1-5 (0-5) /hpf Urine RBC (Auto) >30 H (0-4) /hpf U Hyaline Cast (Auto) 1-5 (0-5) /lpf U Epithel Cells (Auto) >30 H (0-5) /lpf Urine Bacteria (Auto) 1+ H (Negative) SARS-CoV-2, RNA, NAAT NEGATIVE (NEGATIVE) Administered Medications Parenteral Electrolytes (Plasma-Lyte A Ph 7.4) 1,000 mls @ 100 mls/hr IV .Q10H CORDELIA Stop: 10/06/22 12:29 Last Admin: 09/06/22 12:35 Dose: 100 mls/hr Documented By: TRACY Discontinued Medications Ceftriaxone Sodium (Ceftriaxone Sodium 2000mg/70ml D5w) Confirm Administered Dose 2,000 mg IV .STK-MED ONE Stop: 09/06/22 11:41 Last Admin: 09/06/22 11:48 Dose: 2,000 mg Documented By: TRACY Sodium Chloride (Nss 1000ml) 1,000 mls @ 999 mls/hr IV .Q1H1M STA Stop: 09/06/22 09:27 Last Infusion: 09/06/22 09:40 Dose: 0 mls/hr Documented By: Admin: 09/06/22 08:39 Dose: 999 mls/hr Documented By: MARIO Promethazine HCl (Phenergan) 6.25 mg in 50.25 mls @ 201 mls/hr IV NOW STA Stop: 09/06/22 08:45 Last Infusion: 09/06/22 08:55 Dose: 0 mls/hr Documented By: Admin: 09/06/22 08:40 Dose: 201 mls/hr Documented By: MARIO Morphine Sulfate (Morphine Sulfate 4 Mg/Ml 1 Ml Carp\\Vial) 4 mg IV Q15M PRN PRN Reason: Pain Stop: 09/20/22 08:26 Last Admin: 09/06/22 11:51 Dose: 4 mg Documented By: Admin: 09/06/22 10:09 Dose: 4 mg Documented By: TRACY Morphine Sulfate (Morphine Sulfate 10 Mg/Ml Carp/Vial) 6 mg IV NOW STA Stop: 09/06/22 08:32 Last Admin: 09/06/22 08:39 Dose: 6 mg Documented By: MARIO Tamsulosin HCl (Tamsulosin Hcl 0.4 Mg Cap) 0.4 mg PO NOW ONE Stop: 09/06/22 09:03 Last Admin: 09/06/22 09:14 Dose: 0.4 mg Documented By: TRACY Imaging Data Radiologist's Impression: Abdomen/Pelvis CT 09/06/22 08:27 CT SCAN OF THE ABDOMEN AND PELVIS WITHOUT IV CONTRAST CLINICAL HISTORY: Left flank pain. COMPARISON STUDY: Abdominal CT dated 06/22/2021. TECHNIQUE: CT scan of the abdomen and pelvis is performed from the lung bases to the proximal femora. Images are reviewed in the axial, sagittal, and coronal planes. IV contrast was not administered for this examination. A dose lowering technique was utilized adhering to the principles of ALARA. CT DOSE: 1507.39 mGy.cm FINDINGS: Lung bases: The heart is normal in size and without pericardial effusion. The lung bases are clear. Liver: The unenhanced liver is top normal in size measuring up to 18 cm in length. Hepatic attenuation is diffusely diminished indicating steatosis. Fatty sparing seen adjacent to the gallbladder fossa. There is no intrahepatic biliary ductal dilatation. Gallbladder: Unremarkable. Spleen: Normal in size and attenuation. Pancreas: Unremarkable. Adrenal glands: Unremarkable. Kidneys: The unenhanced kidneys are normal in size. There is an 8 mm obstructing calculus in the left proximal ureter seen on image #187. This is located at L3- L4 and causes moderate left hydroureteronephrosis. There is associated left- sided perinephric stranding. No additional calculi are identified in either kidney. There is no right ureteral stone or right-sided hydronephrosis. There is no evidence of contour deforming renal mass lesion. Abdominal vasculature: The abdominal aorta is normal in course and caliber. Bowel: There is no bowel obstruction. The appendix is well-visualized and tavo l. Peritoneum: There is no intraperitoneal free air or abdominal ascites. Lymphadenopathy: None. Pelvic viscera: The bladder is decompressed and not likely violated. The uterus and adnexa are normal as visualized. There are small ovarian follicles. Skeletal structures: No lytic or blastic lesions are seen. Mild degenerative sclerosis is noted in the sacroiliac joints. IMPRESSION: 1. There is an 8 mm obstructing calculus in the left proximal ureter. This causes moderate left hydroureteronephrosis. 2. No additional calculi are identified in either kidney. 3. Hepatic steatosis. 4. Additional findings as above. ACT 112: Negative or not required by law. Electronically signed by: Art Rogers M.D. 09/06/2022 9:06 AM Discharge Plan Visit Data Chief Complaint: Flank Pain ED Provider: Art Maldonado Discharge Problem: Acute left flank pain, Hydronephrosis, Renal colic, Vomiting, Hematuria Patient Disposition: Admitted As Inpatient Condition: Fair Forms Stand Alone Forms: [employer] Prescriptions Prescriptions: No Action Hair, Skin and Nails (biotin) 10,000 mcg Tablet,Chewable 10,000 mcg PO QAM albuterol sulfate 90 mcg/actuation Hfa Aerosol Inhaler 1 inh INHALATION QID PRN (Reason: SHORT OF BREATH) Rx Instructions: Patient stated it has been a year since she last had to use her inhaler- but she keeps it on hand. Referrals Referrals: Froilan Carreon CRNP [Primary Care Provider] -
[2022-09-06 08:51] LABS: Basophils # (auto) 0.03 K/uL (0-0.2); Basophils % (auto) 0.4 %; Eosinophils # (auto) 0.02 K/uL (0-0.50); Eosinophils % (auto) 0.2 %; Hematocrit (blood only) 39.5 % (37.0-47.0); Hemoglobin 13.5 g/dl (12.0-16.0); Immature Granulocytes # (auto) 0.03 K/uL (0.01-0.20); Immature Granulocytes % (auto) 0.4 %; Lymphocytes # (auto) 2.03 K/uL (1.2-3.4); Lymphocytes % (auto) 25.1 %; Mean Corpuscular Hemoglobin 27.2 pg (25.0-34.0); Mean Corpuscular Hgb Conc 34.2 g/dL (32.0-36.0); Mean Corpuscular Volume 79.5 fL (80.0-100.0); Mean Platelet Volume 9.6 fL (9.4-12.4); Monocytes # (auto) 0.61 K/uL (0.11-0.59); Monocytes % (auto) 7.5 %; Neutrophils # (auto) 5.38 K/uL (1.40-6.50); Neutrophils % (auto) 66.4 %; Platelet Count 277 K/uL (130-400); RDW Coefficient of Variation 13.6 % (11.5-14.5); RDW Standard Deviation 39.1 fL (36.4-46.3); Red Blood Count 4.97 M/uL (4.20-5.40)
[2022-09-06 08:54] LABS: Appearance Urine Cloudy (Clear); Bacteria Urine Automated 1+ (Negative); Bilirubin Urine Negative (Negative); Blood Urine 3+ (Negative); Color Urine Dark Yellow; Epithelial Cell Urine Auto >30 /lpf (0-5); Glucose Urine UA Negative (Negative); Ketones Urine Trace (Negative); Leukocyte Esterase Urine Negative (Negative); Nitrite Urine Negative (Negative); Protein Urine 1+ (Negative); RBC Urine Automated >30 /hpf (0-4); Specific Gravity Urine 1.026 (1.000-1.030); Urobilinogen Urine Negative (Negative)
[2022-09-06 09:02] LABS: Pregnancy Test, Serum Negative (Negative)
[2022-09-06] MEDS ORDERED: TAMSULOSIN HCL 0.4 MG CAP PO ONE (09:02)
[2022-09-06 09:04] LABS: Alanine Aminotransferase 15 U/L (7-52); Albumin Globulin Ratio 1.4 (0.9-2); Albumin Level 4.3 gm/dl (3.4-5.0); Alkaline Phosphatase 81 U/L (34-104); Anion Gap 11 (3-11); Aspartate Aminotransferase 15 U/L (13-39); BUN Creatinine Ratio 19.3 (10-20); Bilirubin,Total 0.7 mg/dl (0.2-1.0); Blood Urea Nitrogen 17 mg/dl (6-23); Calcium 9.2 mg/dl (8.6-10.3); Carbon Dioxide 22 mmol/L (21-32); Chloride 105 mmol/L (98-107); Est GFR (African American) 101.5 ml/min; Est GFR (Non-African American) 87.6 ml/min; Glucose 101 mg/dl (70-99(Fasting)); Lipase 19 U/L (11-82); Potassium 3.6 mmol/L (3.5-5.1); Sodium 138 mmol/L (136-145); Total Protein 7.3 gm/dl (6.0-8.3)
--- NOTE | 2022-09-06 09:07 | CT Scan Report ---
CT SCAN OF THE ABDOMEN AND PELVIS WITHOUT IV CONTRAST CLINICAL HISTORY: Left flank pain. COMPARISON STUDY: Abdominal CT dated 06/22/2021. TECHNIQUE: CT scan of the abdomen and pelvis is performed from the lung bases to the proximal femora. Images are reviewed in the axial, sagittal, and coronal planes. IV contrast was not administered for this examination. A dose lowering technique was utilized adhering to the principles of ALARA. CT DOSE: 1507.39 mGy.cm FINDINGS: Lung bases: The heart is normal in size and without pericardial effusion. The lung bases are clear. Liver: The unenhanced liver is top normal in size measuring up to 18 cm in length. Hepatic attenuatio n is diffusely diminished indicating steatosis. Fatty sparing seen adjacent to the gallbladder fossa. There is no intrahepatic biliary ductal dilatation. Gallbladder: Unremarkable. Spleen: Normal in size and attenuation. Pancreas: Unremarkable. Adrenal glands: Unremarkable. Kidneys: The unenhanced kidneys are normal in size. There is an 8 mm obstructing calculus in the left proximal ureter seen on image #187. This is located at L3-L4 and causes moderate left hydroureterone phrosis. There is associated left-sided perinephric stranding. No additional calculi are identified i n either kidney. There is no right ureteral stone or right-sided hydronephrosis. There is no evidence of contour deforming renal mass lesion. Abdominal vasculature: The abdominal aorta is normal in course and caliber. Bowel: There is no bowel obstruction. The appendix is well-visualized and normal. Peritoneum: There is no intraperitoneal free air or abdominal ascites. Lymphadenopathy: None. Pelvic viscera: The bladder is decompressed and not likely violated. The uterus and adnexa are normal as visualized. There are small ovarian follicles. Skeletal structures: No lytic or blastic lesions are seen. Mild degenerative sclerosis is noted in th e sacroiliac joints. IMPRESSION: 1. There is an 8 mm obstructing calculus in the left proximal ureter. This causes moderate left hydro ureteronephrosis. 2. No additional calculi are identified in either kidney. 3. Hepatic steatosis. 4. Additional findings as above. ACT 112: Negative or not required by law. Electronically signed by: Art Rogers M.D. 09/06/2022 9:06 AM
[2022-09-06] MEDS: MoRPHine SULFATE 4 MG/ML 1 ML CARP\\VIAL IV PRN ×3 (10:09→18:47)
[2022-09-06] MEDS ORDERED: cefTRIAXone SODIUM 2000MG/70ML D5W IV ONE (11:40)
--- NOTE | 2022-09-06 11:45 | Urology Consultation ---
Date of Consultation September 06, 2022 Assessment & Plan (1) Calculus of proximal left ureter: 32-year-old female with past medical history of nephrolithiasis admitted for intractable left flank pain secondary to an obstructing 8 mm left proximal stone with moderate hydroureteronephrosis. She is afebrile with stable vitals Labs reviewedcreatinine 0.88, WBC 8.10, hemoglobin 13.5, serum negative Urinalysis notable for 3+ blood, >30 RBCs, >30 epithelials, 1+ bacteria, urine culture pending Treated with IV Rocephin in the emergency department Continue broad-spectrum antibiotics and narrow per sensitivity data when available Patient continues to have moderate to severe flank discomfort since arrival. Discussed options for stone management including left ureteral stent placement acutely versus outpatient surgical options including ureteroscopy, laser lithotripsy and stent placement or ESWL if pain can be controlled. She does not think that she will be able to go home and prefers to proceed with stent placement today. We discussed need for stone treatment at a later date. We discussed ureteral stents in detail. She is currently NPO. Given intractable left renal colic, will proceed to OR today for cystoscopy and left ureteral stent placement. Risks and benefits of procedure to be reviewed with patient by Dr. Carroll. OR notified. Patient treated with IV Rocephin in the ED which is appropriate coverage for procedure. Keep NPO for procedure. Continue supportive care, antibiotics and medical management per hospital medicine service. will follow. Supervising Physician Co-Signing Physician Notes Reviewed scans. Plan for stent due to intractable pain. Consent obtained, patient marked. History of Present Illness Reason for Consultation: left ureteral stone Requesting Physician: Dr. Villanueva Attending Physician: Dr. Villanueva History of Present Illness This is a 32-year-old female with past medical history of obesity, Crohn's disease, PCOS, depression, anxiety, and nephrolithiasis who presented to the emergency department on 09/06/2022 with intractable left flank pain, nausea and vomiting. Presented via EMS, was given IV Toradol and Zofran in route. On arrival, she w as afebrile, mildly tachycardic, normotensive. Lab work independently reviewed and showed creatinine 0.88, WBC 8.10, hemoglobin 13.5. Urinalysis notable for 1+ protein, trace ketones, 3+ blood, >30 RBC, >30 epithelial cells, 1+ bacteria. Urine culture collected and pending. CT abdomen and pelvis notable for an obstructing 8 mm left proximal ureteral stone with moderate hydroureteronephrosis. ED course: Phenergan, morphine, Flomax and Rocephin. Admitted to medicine service for further management and pain control. Urology consulted for left ureteral stone. Patient known to our service for history of stones. History of URS, laser lithotripsy and stent placement. Patient seen and examined in the emergency department. She is resting in litter, appears uncomfortable but no acute distress. Reports left flank discomfort rated 8-9 out of 10. Nausea and vomiting since arrival, but improved. No fever or chills. Voiding spontaneously. No dysuria, hematuria noted yesterday but cleared today. Last ate or drank yesterday evening. Allergies Allergy/AdvReac Type Severity Reaction Status Date / Time Citalopram Analogues Allergy Intermediate hives Verified 05/09/22 08:12 nickel Allergy Mild Rash Verified 05/09/22 08:12 sertraline Allergy Mild hives Verified 05/09/22 08:12 Home Medications Medication Instructions Recorded Confirmed Type albuterol sulfate 90 mcg/actuation 1 inh inhalation QID PRN SHORT OF 02/13/21 09/06/22 History aerosol inhaler BREATH biotin 10,000 mcg chewable tablet 10,000 mcg PO QAM 05/03/22 09/06/22 History (Hair, Skin and Nails (biotin)) Patient History Medical History Anemia HX>DURING Asthma HAS NOT USED INHALER FOR "QUITE SOME TIME" Bipolar disorder NO CURRENT MEDS Chlamydia hx Colitis (07/06/11) hx Crohns disease Depression with anxiety Diverticulosis of colon without diverticulitis (06/04/12) hx Endometriosis determined by laparoscopy Esophageal reflux (06/04/12) History of COVID-2021- ASYMPTOMATIC-INCIDENTAL FINDING History of kidney stones History of tobacco use Hx gestational diabetes Hx of Clostridium difficile infection dx [facility] in 2011, admitted to hospital, tx w/abx-cleared Obesity Polycystic ovarian syndrome Polycystic ovaries (06/04/12) Surgical History H/O bilateral salpingectomy H/O dilation and curettage History of colonoscopy MULTIPLE History of tonsillectomy and adenoidectomy S/P laparoscopy [place] teeth removed Family History Aunt Migraine headache Brother Heart murmur Aunt Breast cancer Grandmother (Paternal) Brain cancer Colorectal cancer Other No family history of adverse response to anesthesia Denies family history of Ovarian cancer Social History Smoking Status: Former smoker Second Hand Exposure: No; Do You Dip or Chew Tobacco: No; Hx Alcohol Use: No Hx Substance Use: No Preferred Language: Slovenian Communication Ability: Effective 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 Required: No Beliefs That Will Affect Care: None marital status: marital status details: Chris Mckeon (30) [phone] Current Living Situation: Spouse and Family Current Living Situation Comment: lives with current occupational status: employed current occupation: [employer] Feels Safe at Home: Yes Assistive Devices: None Review of Systems Review of Systems: All systems reviewed & are unremarkable except as noted in HPI & below Respiratory: no dyspnea Cardiovascular: no chest pain Physical Exam Constitutional: well developed and well nourished; no acute distress and not ill appearing Eyes: no scleral abnormality Neck: normal visual inspection Respiratory: normal respiratory effort and able to speak in complete sentences; no respiratory distress and no labored breathing Cardiovascular: Extremities: no pedal edema Gastrointestinal (Abdomen): Inspection/Auscultation: abdomen normal to inspection; abdomen not distended Percussion/Palpation: abdomen soft; abdomen nontender and no guarding Musculoskeletal: Head/Neck/Chest: normocephalic Skin: no visible skin rashes Neurologic: moves all extremities and awake Psychiatric: Orientation: alert and oriented x 3 Genitourinary: Mild tenderness to palpation over left flank Results & Data Vital Signs (Past 12 Hours) Vital Signs Temp Pulse Pulse Resp BP BP Pulse Ox 09/06/22 09:07 80 09/06/22 09:09 89 16 102/66 94 09/06/22 08:08 36.6 C 102 H 20 102/66 99 O2 Del Method 09/06/22 09:07 09/06/22 09:09 Room Air 09/06/22 08:08 Room Air PG Care Time/CCT Total # of Minutes Spent Total Time Spent with Patient: Total time spent is greater than 50% in coordination of care (as documented) at patient's floor/unit and/or counseling patient: Coding Level of Care Code 60241 IN/OBS CONSULT LVL 3,45M Diagnoses Calculus of proximal left ureter N20.1
[2022-09-06] MEDS ORDERED: ACETAMINOPHEN 325 MG TAB PO PRN (12:04)
--- NOTE | 2022-09-06 12:15 | History & Physical Report ---
Date of Service September 06, 2022 Assessment & Plan (1) Calculus of proximal left ureter: Plan: Left nephrolithiasis with complicated UTI CTA/P: 1. There is an 8 mm obstructing calculus in the left proximal ureter. This causes moderate left hydroureteronephrosis. 2. No additional calculi are identified in either kidney. 3. Hepatic steatosis.4. Additional findings as above. No leukocytosis UA infected appearing Creatinine 0.88 Urology consulted. Anticipate cystoscopy and stent placement pending OR availability, due to unclear timing until able to be taken to the OR and severe pain admitted to medicine pending intervention Continue morphine every 4 hours, hold for sedation Continue Zofran every 4 hours IV FM Rocephin daily ordered, adjust/narrow based on sensitivities Crohn's disease Patient reports mild disease, has never needed oral agents, and has intermittent hematochezia with no recent flares. Recent colonoscopy was normal other than a precancerous polyp removal Patient denies other medical history, takes no other medications. Reports no medication allergies, has had hives to sertraline By chart review does have a history of PCOS, takes no medication for this. 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 pending surgical intervention Disposition: Medical/surgical CODE STATUS: Full code History of Present Illness Primary Care Provider: KEHINDE Granger Barbara is a 32-year-old female the past medical history of Crohn's which has had intermittent hematochezia but otherwise no complications and has not required any oral medications, and recurrent kidney stones who presents with 1 month of left flank pain which severely worsened this morning and has been associated with hematuria Was seen at bedside with urology. Due to severe pain and 8 mm stone is recomm ended for cystoscopy/stent pending OR availability. Barbara feels her pain is improved from an 8 to a 5 after analgesics and her nausea is improved following Phenergan, but she continues to have achy 5/10 pain. She has felt fevered and flushed chest since this morning. Endorses hematuria and small voids, but no burning with urination. Endorses nausea. No chest pain, chest pressure, lightheadedness, dizziness. No melena or bright red blood per rectum. Did recently have a precancerous polyp removed by colonoscopy which was otherwise unremarkable. She reports she takes no chronic medications, and other than her relatively asymptomatic Crohn's intermittent kidney stones has no other medical history. Denies antibiotic allergies, hives to sertraline and nickel as noted. Denies current alcohol/tobacco use. Full code. Allergies Allergy/AdvReac Type Severity Reaction Status Date / Time Citalopram Analogues Allergy Intermediate hives Verified 05/09/22 08:12 nickel Allergy Mild Rash Verified 05/09/22 08:12 sertraline Allergy Mild hives Verified 05/09/22 08:12 Home Medications Medication Instructions Recorded Confirmed Type albuterol sulfate 90 mcg/actuation 1 inh inhalation QID PRN SHORT OF 02/13/21 09/06/22 History aerosol inhaler BREATH biotin 10,000 mcg chewable tablet 10,000 mcg PO QAM 05/03/22 09/06/22 History (Hair, Skin and Nails (biotin)) Past Med/Surg History Medical History Anemia HX>DURING Asthma HAS NOT USED INHALER FOR "QUITE SOME TIME" Bipolar disorder NO CURRENT MEDS Chlamydia hx Colitis (07/06/11) hx Crohns disease Depression with anxiety Diverticulosis of colon without diverticulitis (06/04/12) hx Endometriosis determined by laparoscopy Esophageal reflux (06/04/12) History of COVID-2021- ASYMPTOMATIC-INCIDENTAL FINDING History of kidney stones History of tobacco use Hx gestational diabetes Hx of Clostridium difficile infection dx [facility] in 2011, admitted to hospital, tx w/abx-cleared Obesity Polycystic ovarian syndrome Polycystic ovaries (06/04/12) Surgical History H/O bilateral salpingectomy H/O dilation and curettage History of colonoscopy MULTIPLE History of tonsillectomy and adenoidectomy S/P laparoscopy [place] teeth removed Family History Aunt Migraine headache Brother Heart murmur Aunt Breast cancer Grandmother (Paternal) Brain cancer Colorectal cancer Other No family history of adverse response to anesthesia Denies family history of Ovarian cancer Social History Smoking Status: Former smoker Second Hand Exposure: No; Do You Dip or Chew Tobacco: No; Hx Alcohol Use: No Hx Substance Use: No Preferred Language: P[place]in[place] Communication Ability: Effective Medical Research Associate Required: No Beliefs That Will Affect Care: None marital status: marital status details: Chris Mckeon (30) [phone] Current Living Situation: Spouse and Family Current Living Situation Comment: lives with current occupational status: employed current occupation: [employer] Feels Safe at Home: Yes Assistive Devices: None Review of Systems Review of Systems: All systems reviewed & are unremarkable except as noted in Subjective Physical Exam Physical Exam: General: A&Ox3. NAD. Cooperative. Appears uncomfortable but nontoxic HEENT: Atraumatic, normocephalic. Vision and hearing grossly intact Pulm: CTAB A&P. -wheezes, -rales, -rhonchi. Symmetrical chest rise. No increased work of breathing. No respiratory distress. Cardiac: RRR, -mrg. Radial pulses intact and symmetrical. Abdominal: mild LLQ TTP with radiation to L flank. Abd soft, no rebound, no gu arding, no rigidity. Ext: warn, dry. Results & Data Results & Data Vital Signs (Past 12 Hours) Vital Signs Temp Pulse Pulse Resp BP BP Pulse Ox 09/06/22 09:07 80 09/06/22 09:09 89 16 102/66 94 09/06/22 08:08 36.6 C 102 H 20 102/66 99 O2 Del Method 09/06/22 09:07 09/06/22 09:09 Room Air 09/06/22 08:08 Room Air Code Status & VTE Plan VTE Prophylaxis Plan VTE Prophylaxis will be ordered: Yes PG Care Time/CCT Total # of Minutes Spent Total Time Spent with Patient: Total time spent is greater than 50% in coordination of care (as documented) at patient's floor/unit and/or counseling patient: Coding Level of Care Code 46862 INT INP/OBS CARE 2/55MIN Diagnoses Calculus of proximal left ureter N20.1
[2022-09-06] MEDS ORDERED: MoRPHine SULFATE 2 MG/ML CARP IV PRN (12:17)
[2022-09-06] MEDS: PLASMA-LYTE A 1,000 ML IV SCH ×2 (12:35→18:46)
[2022-09-06] MEDS ORDERED: cefTRIAXone SODIUM 2,000 MG in DEXTROSE 5% 50 ML IV SCH (13:00)
[2022-09-06] MEDS: ONDANSETRON INJ 2 MG/ML 2 ML VIAL IV PRN (13:17)
[2022-09-06] MEDS ORDERED: MIDAZOLAM HCL 1 MG/ML 2ML VIAL ONE ×2 (13:26→14:14)
[2022-09-06] MEDS ORDERED: PROPOFOL IV EMULSION 10 MG/ML 20 ML VIAL IV ONE (13:27)
[2022-09-06] MEDS ORDERED: fentaNYL citrate PF 100 MCG/2 ML VIAL ONE (13:27)
--- NOTE | 2022-09-06 13:45 | Anesthesiology Consultation ---
Date of Service September 06, 2022 Assessment & Plan (1) Encounter for pre-operative examination: Chart Review Chart Review: Acceptable Risk for Surgery History Surgery Operation Date: 09/06/22 16:30 Proposed Procedures p Cystoscopy Left Stent Placement - Shamir Carroll MD Height/Weight Weight: 108.5 kg Allergies Allergy/AdvReac Type Severity Reaction Status Date / Time Citalopram Analogues Allergy Intermediate hives Verified 05/09/22 08:12 nickel Allergy Mild Rash Verified 05/09/22 08:12 sertraline Allergy Mild hives Verified 05/09/22 08:12 Medications Home Medications Medication Instructions Recorded Confirmed Last Taken albuterol sulfate 90 mcg/actuation 1 inh inhalation QID PRN SHORT OF 02/13/21 09/06/22 1 Year Ago aerosol inhaler BREATH ~09/06/21 biotin 10,000 mcg chewable tablet 10,000 mcg PO QAM 05/03/22 09/06/22 09/05/22 (Hair, Skin and Nails (biotin)) Active Medications Generic Name Dose Route Start Last Admin Trade Name Freq PRN Reason Stop Dose Admin Parenteral Electrolytes 1,000 mls @ 100 mls/hr 09/06/22 12:30 09/06/22 12:35 Plasma-Lyte A Ph 7.4 IV 10/06/22 12:29 100 mls/hr .Q10H CORDELIA Administration Ondansetron HCl 4 mg 09/06/22 11:25 09/06/22 13:17 Ondansetron Inj 2 Mg/Ml 2 Ml Vial IV 10/06/22 11:24 4 mg Q4H PRN Administration Nausea Past Medical History Medical History Anemia HX>DURING Asthma HAS NOT USED INHALER FOR "QUITE SOME TIME" Bipolar disorder NO CURRENT MEDS Chlamydia hx Colitis (07/06/11) hx Crohns disease Depression with anxiety Diverticulosis of colon without diverticulitis (06/04/12) hx Endometriosis determined by laparoscopy Esophageal reflux (06/04/12) History of COVID-2021- ASYMPTOMATIC-INCIDENTAL FINDING History of kidney stones History of tobacco use Hx gestational diabetes Hx of Clostridium difficile infection dx [facility] in 2011, admitted to hospital, tx w/abx-cleared Obesity Polycystic ovarian syndrome Polycystic ovaries (04/17/13) Past Family History Family History Aunt Migraine headache Brother Heart murmur Aunt Breast cancer Grandmother (Paternal) Brain cancer Colorectal cancer Other No family history of adverse response to anesthesia Denies family history of Ovarian cancer Past Surgical History Surgical History H/O bilateral salpingectomy H/O dilation and curettage History of colonoscopy MULTIPLE History of tonsillectomy and adenoidectomy S/P laparoscopy [place] teeth removed Social History Smoking Status: Former smoker tobacco type: cigarettes Do You Dip or Chew Tobacco: No Hx Alcohol Use: No Hx Substance Use: No substance use type: does not use Physical Exam Vital Signs Last Vital Signs Temp 36.7 C 09/06/22 13:37 Pulse 99 H 09/06/22 13:37 Resp 18 09/06/22 13:37 BP 126/82 09/06/22 13:37 Pulse Ox 97 09/06/22 13:37 O2 Del Method Room Air 09/06/22 13:37 Testing Laboratory Results 09/06/22 08:12 09/06/22 08:12 Urine Color Dark Yellow 09/06/22 08:39 Urine Appearance Cloudy (Clear) A 09/06/22 08:39 Urine pH 6.0 (4.5-7.5) 09/06/22 08:39 Ur Specific [place] 1.026 (1.000-1.030) 09/06/22 08:39 Urine Protein 1+ (Negative) H 09/06/22 08:39 Urine Glucose (UA) Negative (Negative) 09/06/22 08:39 Urine Ketones Trace (Negative) H 09/06/22 08:39 Urine Nitrite Negative (Negative) 09/06/22 08:39 Ur Leukocyte Esterase Negative (Negative) 09/06/22 08:39 Urine WBC (Auto) 1-5 /hpf (0-5) 09/06/22 08:39 Urine RBC (Auto) >30 /hpf (0-4) H 09/06/22 08:39 U Hyaline Cast (Auto) 1-5 /lpf (0-5) 09/06/22 08:39 U Epithel Cells (Auto) >30 /lpf (0-5) H 09/06/22 08:39 Urine Bacteria (Auto) 1+ (Negative) H 09/06/22 08:39
[2022-09-06] MEDS ORDERED: fentaNYL citrate PF 100 MCG/2 ML VIAL IV PRN (14:07)
[2022-09-06] MEDS ORDERED: ATROPINE SULFATE 0.1 MG/ML 10ML SYR IV PRN (14:07)
[2022-09-06] MEDS ORDERED: ONDANSETRON INJ 2 MG/ML 2 ML VIAL IV PRN (14:07)
[2022-09-06] MEDS ORDERED: PROMETHAZINE HCL 6.25 MG in SODIUM CHLORIDE 0.9% 50 ML IV PRN (14:07)
[2022-09-06] MEDS ORDERED: KETAMINE 50 MG/5 ML SYRINGE ONE (14:22)
--- NOTE | 2022-09-06 14:28 | Post Operative Brief Note ---
PG Immediate Post Op with CF Date of Surgery September 06, 2022 Pre & Post Diagnosis Left urolithiasis Operation Date: 09/06/22 16:30 <No data on this case meets the specified criteria> Left urolithiasis I identified the patient and participated in the time-out.: Yes Procedure Cystoscopy, left retrograde with radiographic interpretation, left stent placement Operation Date: 09/06/22 16:30 <No data on this case meets the specified criteria> Surgeon Shamir Carroll MD Park Aide None Estimated Blood Loss 0 Findings See Below Left retrograde showed hydro with stone at proximal ureter. Stent in upper pole with good curl. Anesthesia Type MAC Complications none
--- NOTE | 2022-09-06 14:40 | Operative Report ---
PG Post Operative Report Pre & Post Diagnosis Operation Date: 09/06/22 16:30 Pre-Op Diagnosis: Calculus of proximal left ureter Post-Op Diagnosis: Calculus of proximal left ureter I identified the patient and participated in the time-out.: Yes Procedure Operation Date: 09/06/22 16:30 Actual Procedures p Cystoscopy, left retrograde pyelogram, Left Stent Placement(Left) - Shamir Carroll MD Surgeon Shamir Carroll MD Fudger None Estimated Blood Loss 0 Findings See Below Left retrograde showed hydro with stone at proximal ureter. Stent in upper pole with good curl. Specimens None Drains 6 [place]ic by 26 cm left ureteral stent Anesthesia Type MAC Complications none Indications 32-year-old female with an 8 mm left proximal ureteral calculus and intractable pain. Description of Procedure After informed consent was obtained, the patient was transported operative suite. MAC anesthesia was induced. The patient was placed in dorsal lithotomy position prepped and draped in a sterile fashion. They received preoperative ceftriaxone for antibiotic prophylaxis. An appropriate surgical timeout was performed. A 22 [place] rigid scope was inserted per urethra into the bladder. Jacob cystoscopy revealed no stones or lesions. I turned my attention the left ureteral orifice and intubated this with a 5 [place] open-ended catheter. A left retrograde pyelogram was shot which showed mild hydronephrosis. A sensor wire was advanced into the kidney and confirmed fluoroscopically. A 6 [place] by 26 cm left ureteral stent was deployed with a good proximal coil in the renal pelvis and a good distal coil noted in the bladder. These were confirmed fluoroscopically and under direct visualization, respectively. The bladder was emptied and the scope was removed. This concluded the end of the case. All counts were correct at the end of the case. I was present, scrubbed, and actively participated for the entirety of the procedure. I attest to the content of the Intraoperative Record and any orders documented therein. Any exceptions are noted below.
--- NOTE | 2022-09-06 15:12 | Anesthesiology Progress Note ---
Date of Service September 06, 2022 Anesthesia Post Procedure Vital Signs Vital Signs: Temp Pulse Pulse Pulse Resp BP BP 09/06/22 14:55 109 H 19 123/77 09/06/22 15:05 113 H 21 115/77 09/06/22 14:45 121 H 21 121/88 09/06/22 14:37 36.5 C 107 H 21 125/74 09/06/22 14:02 36.8 C 104 H 18 126/88 09/06/22 13:37 36.7 C 99 H 18 126/82 09/06/22 12:11 86 13 126/82 09/06/22 09:07 80 09/06/22 09:09 89 16 102/66 09/06/22 08:08 36.6 C 102 H 20 102/66 Pulse Ox O2 Del Method O2 Flow Rate 09/06/22 14:55 95 Room Air 09/06/22 15:05 96 Room Air 09/06/22 14:45 95 Room Air 09/06/22 14:37 100 Oxymask 5 09/06/22 14:02 100 Room Air 09/06/22 13:37 97 Room Air 09/06/22 12:11 98 09/06/22 09:07 09/06/22 09:09 94 Room Air 09/06/22 08:08 99 Room Air Pain Intensity Lower Back: Pain Intensity: 7 Left Lower Flank: Pain Intensity: 7 Transfer of Care Handoff Completed per policy Notes Mental Status: alert / awake / arousable Patient Amnestic to Procedure: Yes Nausea / Vomiting: adequately controlled Pain: adequately controlled Airway Patency, RR, SpO2: stable & adequate BP & HR: stable & adequate Hydration State: stable & adequate Anesthetic Complications: no major complications apparent
--- NOTE | 2022-09-06 19:36 | Fluoroscopy Report ---
FL retrograde includes kub CLINICAL HISTORY: RETROGRADE STENT PLACEMENT COMPARISON STUDY: CT of the abdomen and pelvis performed earlier today. FLUOROSCOPY TIME: 17 seconds. Ka, r: 5.92 mGy FLUOROSCOPIC IMAGES: 1 FINDINGS: Fluoroscopy was provided during left ureteral stent placement. A density projects along the proximal aspect of the stent. This likely reflects the calculus shown on CT. Proximal aspect of the stent projects over the left collecting system. IMPRESSION: Fluoroscopy provided during left ureteral stent placement. ACT 112: Negative or not required by law. Electronically signed by: Sukhdeep Jimenez M.D. 09/06/2022 7:35 PM
[2022-09-06] MEDS ORDERED: oxyCODONE/ACETAMINOPHEN 5mg/325mg TAB PO STA (22:22)
[2022-09-07] MEDS: MoRPHine SULFATE 4 MG/ML 1 ML CARP\\VIAL IV PRN (01:42)
[2022-09-07] MEDS: PLASMA-LYTE A 1,000 ML IV SCH ×2 (04:30→15:18)
[2022-09-07] MEDS ORDERED: oxyCODONE/ACETAMINOPHEN 5mg/325mg TAB PO STA (06:02)
--- NOTE | 2022-09-07 06:05 | Communication Note ---
Date of Service: September 07, 2022 Received several messages overnight in relation to patient's pain control. It seems patient was only getting about an hour of relief with the morphine, so attempted to control her pain with longer lasting opioid medication, Percocet. Patient seem to have upwards to 4 to 5 hours of pain control and did provide 2 doses overnight. Consider converting morphine over to oxycodone/Percocet for longer pain control. Considered utilization of Toradol given she is experiencing renal colic but deferred given history of Crohn's disease.
[2022-09-07 07:40] LABS: Basophils # (auto) 0.03 K/uL (0-0.2); Basophils % (auto) 0.4 %; Eosinophils # (auto) 0.07 K/uL (0-0.50); Hematocrit (blood only) 35.6 % (37.0-47.0); Hemoglobin 11.9 g/dl (12.0-16.0); Immature Granulocytes # (auto) 0.02 K/uL (0.01-0.20); Immature Granulocytes % (auto) 0.3 %; Lymphocytes # (auto) 2.22 K/uL (1.2-3.4); Lymphocytes % (auto) 32.2 %; Mean Corpuscular Hemoglobin 27.5 pg (25.0-34.0); Mean Corpuscular Hgb Conc 33.4 g/dL (32.0-36.0); Mean Corpuscular Volume 82.2 fL (80.0-100.0); Mean Platelet Volume 9.4 fL (9.4-12.4); Monocytes # (auto) 0.51 K/uL (0.11-0.59); Monocytes % (auto) 7.4 %; Neutrophils # (auto) 4.05 K/uL (1.40-6.50); Neutrophils % (auto) 58.7 %; Platelet Count 230 K/uL (130-400); RDW Coefficient of Variation 13.8 % (11.5-14.5); RDW Standard Deviation 41.2 fL (36.4-46.3); Red Blood Count 4.33 M/uL (4.20-5.40)
[2022-09-07 07:59] LABS: BUN Creatinine Ratio 16.7 (10-20); Calcium 8.1 mg/dl (8.6-10.3); Creatinine Clr Calc Pharmacy 135.5 ml/min; Est GFR (African American) 129.3 ml/min; Est GFR (Non-African American) 111.6 ml/min; Potassium 3.8 mmol/L (3.5-5.1)
--- NOTE | 2022-09-07 08:07 | Hospitalist Progress Note ---
Date of Service September 07, 2022 Assessment & Plan (1) Calculus of proximal left ureter: Plan: s/p stent placement Pain management percocet 5mg/325mg q4h Admission and Anticipated Discharge Date Admission Date: September 06, 2022 Supervising Physician Co-Signing Physician Notes I personally examined the patient and verified all real points of history and exam, discussed case, and agree with decision making with Dr Bunch Still feeling a good bit of painfairly intolerable whenever she voids, definitely does not feel like she be okay at home yet. Vitals noted, in general she is awake and alert pleasant. Breathing unlabored no accessory muscle use good effort. Skin shows no rashes no pallor or icterus. Neuro without focal deficits. Ureteral colicprobably stent relatedgive time, hopefully should improve, if not may need urology to reevaluate. Continue symptomatic control at this time. Subjective 32 yo female PMHx Crohn's dx and recurrent kidney stones day 1 post-op stenting of L ureter. Stone was located in proximal ureter and there was evidence of hydronephrosis. Pt had difficult to control pain overnight. Pain is worst post-void. Denies CP, SOB, N/V/D, changes in bowel habits. Review of Systems Review of Systems: reviewed, see hpi Physical Exam Physical Exam: General: patient resting comfortably, NAD, non-toxic in appearance, AA&O x 4, answers questions appropriately and follows commands. Skin: warm, dry, intact, no rashes or lesions HEENT: NC/AT, anicteric sclera, conjunctiva without injection, external ear normal to inspection, nares patent, moist mucus membranes, dentition intact, neck supple, trachea midline, no thyromegaly, no JVD Heart: +S1/S2, regular, no m/r/g Lungs: equal air entry bilaterally, no rales/rhonchi/wheezes Abd: +BS, soft, NT/ND, no masses/organomegaly/ascites Ext: warm, no clubbing/cyanosis or edema Neuro: nonfocal, patient AA&O x 4, speech intact, no facial droop, moving all extremities on command. Results & Data Results & Data Vital Signs (Past 12 Hours) Vital Signs Temp Pulse Pulse Resp BP Pulse Ox O2 Del Method 09/07/22 07:22 36.7 C 94 H 18 114/79 100 Room Air 09/06/22 21:19 36.5 C 89 18 118/74 98 Room Air Resident Activity Tracking Resident Involvement: Resident Care Provided Care Provided: Adult Hospital Medicine
[2022-09-07] MEDS ORDERED: TAMSULOSIN HCL 0.4 MG CAP PO ONE (08:15)
[2022-09-07] MEDS: oxyBUTYnin chloride 5 MG TAB PO PRN ×2 (08:44→19:35)
--- NOTE | 2022-09-07 09:08 | Urology Progress Note ---
Date of Service September 07, 2022 Assessment & Plan (1) Calculus of proximal left ureter: (2) Hydronephrosis: (3) Acute left flank pain: Plan: - Pt POD#1 s/p cystoscopy and left ureteral stent placement - Afebrile, lab work reviewed - creatinine 0.72, WBC 6.90 - UC pending, remains on IV Ceftriaxone - follow culture - Difficult night due to stent discomfort, better this morning - Added Flomax, prn Pyridium and Oxybutynin for stent management - Okay to d/c from perspective when medically stable - Recommend d/c with course of PO antibiotics, Tamsulosin and prn Pyridium, Oxybutynin, analgesia and antiemetics for stent management - Expected clinical course reviewed, all questions answered - Will arrange outpatient follow-up with our service - will sign off Admission and Anticipated Discharge Date Admission Date: September 06, 2022 Subjective Patient seen and examined at bedside this morning, chart reviewed. She reports a difficult night due to pain. Reports left flank discomfort ongoing this morning, but improved. Flank discomfort worse with voids. Also notes nausea and occasional sweats overnight. Denies fever or chills. Voiding spontaneously, notes hematuria postprocedure. Review of Systems Constitutional: as per Subjective / HPI Gastrointestinal: as per Subjective / HPI Physical Exam Constitutional: well developed and well nourished; no acute distress and not ill appearing Respiratory: normal respiratory effort and able to speak in complete sentences; no respiratory distress and no labored breathing Gastrointestinal (Abdomen): Inspection/Auscultation: abdomen normal to inspection; abdomen not distended Musculoskeletal: Head/Neck/Chest: normocephalic Skin: no visible skin rashes Neurologic: moves all extremities and awake Psychiatric: Orientation: alert and oriented x 3 Results & Data Vital Signs (Past 12 Hours) Vital Signs Temp Pulse Pulse Resp BP Pulse Ox O2 Del Method 09/07/22 07:22 36.7 C 94 H 18 114/79 100 Room Air 09/06/22 21:19 36.5 C 89 18 118/74 98 Room Air PG Care Time/CCT Total # of Minutes Spent Total Time Spent with Patient: Total time spent is greater than 50% in coordination of care (as documented) at patient's floor/unit and/or counseling patient: Coding Level of Care Code 42569 SUB INP/OBS CARE 1/25MIN Diagnoses Calculus of proximal left ureter N20.1 Hydronephrosis N13.2 Hydronephrosis type: with renal calculous obstruction Acute left flank pain R10.9 (2) Hydronephrosis Hydronephrosis type: with renal calculous obstruction Qualified Code(s): N13.2 - Hydronephrosis with renal and ureteral calculous obstruction
[2022-09-07] MEDS: ONDANSETRON INJ 2 MG/ML 2 ML VIAL IV PRN (10:46)
[2022-09-07] MEDS: ENOXAPARIN INJ 40 MG/0.4 ML SYR SQ SCH (11:51)
[2022-09-07] MEDS: cefTRIAXone SODIUM 2,000 MG in DEXTROSE 5% 50 ML IV SCH (11:51)
[2022-09-07] MEDS: oxyCODONE/ACETAMINOPHEN 5mg/325mg TAB PO PRN ×3 (12:48→21:18)
[2022-09-07] MEDS: PHENAZOPYRIDINE HCL 200 MG TAB PO PRN ×2 (14:12→22:26)
--- NOTE | 2022-09-07 20:06 | Billing Data ---
Date of Service September 07, 2022 Coding Level of Care Code 84775 SUB INP/OBS CARE
[2022-09-08] MEDS: PLASMA-LYTE A 1,000 ML IV SCH (01:24)
[2022-09-08] MEDS: ONDANSETRON INJ 2 MG/ML 2 ML VIAL IV PRN (01:26)
[2022-09-08] MEDS ORDERED: MoRPHine SULFATE 2 MG/ML CARP IV STA (01:41)
[2022-09-08] MEDS ORDERED: BUTALBITAL/ACETAMIN/CAFFEINE TAB PO STA (05:27)
[2022-09-08] MEDS ORDERED: KETOROLAC TROMETHAMINE 15 MG/ML VIAL IV ONE (05:40)
[2022-09-08] MEDS ORDERED: KETOROLAC TROMETHAMINE 15 MG/ML VIAL ONE (05:47)
--- NOTE | 2022-09-08 06:50 | Hospitalist Progress Note ---
Date of Service September 08, 2022 Assessment & Plan (1) Calculus of proximal left ureter: Plan: s/p stent placement Pain management percocet 5mg/325mg q4h Admission and Anticipated Discharge Date Admission Date: September 06, 2022 Results & Data Results & Data Vital Signs (Past 12 Hours) Vital Signs Temp Pulse Resp BP Pulse Ox O2 Del Method 09/08/22 05:20 36.5 C 87 20 126/83 97 Room Air 09/07/22 21:00 36.7 C 90 18 120/80 97 Room Air Resident Activity Tracking Resident Involvement: Resident Care Provided Care Provided: Adult Hospital Medicine
[2022-09-08 07:28] LABS: Basophils # (auto) 0.02 K/uL (0-0.2); Basophils % (auto) 0.3 %; Eosinophils # (auto) 0.07 K/uL (0-0.50); Eosinophils % (auto) 1.1 %; Immature Granulocytes # (auto) 0.03 K/uL (0.01-0.20); Immature Granulocytes % (auto) 0.5 %; Lymphocytes % (auto) 32.6 %; Mean Corpuscular Hemoglobin 27.6 pg (25.0-34.0); Mean Corpuscular Hgb Conc 32.4 g/dL (32.0-36.0); Mean Corpuscular Volume 85.4 fL (80.0-100.0); Mean Platelet Volume 9.8 fL (9.4-12.4); Monocytes # (auto) 0.56 K/uL (0.11-0.59); Monocytes % (auto) 8.7 %; Neutrophils # (auto) 3.66 K/uL (1.40-6.50); Neutrophils % (auto) 56.8 %; Platelet Count 219 K/uL (130-400); RDW Coefficient of Variation 13.8 % (11.5-14.5); RDW Standard Deviation 43.2 fL (36.4-46.3); Red Blood Count 3.98 M/uL (4.20-5.40); White Blood Count 6.44 K/ul (4.8-10.8)
[2022-09-08] MEDS: PHENAZOPYRIDINE HCL 200 MG TAB PO PRN (08:35)
[2022-09-08] MEDS: ENOXAPARIN INJ 40 MG/0.4 ML SYR SQ SCH (08:38)
[2022-09-08 10:03] LABS: BUN Creatinine Ratio 12.5 (10-20); Calcium 8.1 mg/dl (8.6-10.3); Creatinine Clr Calc Pharmacy 135.5 ml/min; Est GFR (African American) 129.3 ml/min; Est GFR (Non-African American) 111.6 ml/min; Potassium 4.2 mmol/L (3.5-5.1)
[2022-09-08] MEDS: oxyBUTYnin chloride 5 MG TAB PO PRN (10:37)
[2022-09-08] MEDS ORDERED: IBUPROFEN 600 MG TAB PO PRN (10:47)
[2022-09-08] MEDS: cefTRIAXone SODIUM 2,000 MG in DEXTROSE 5% 50 ML IV SCH (12:20)
--- NOTE | 2022-09-08 12:33 | Discharge Summary ---
Date of Service September 08, 2022 Admission HPI Per Admitting Provider Barbara is a 32-year-old female the past medical history of Crohn's which has had intermittent hematochezia but otherwise no complications and has not required any oral medications, and recurrent kidney stones who presents with 1 month of left flank pain which severely worsened this morning and has been associated with hematuria Was seen at bedside with urology. Due to severe pain and 8 mm stone is recommended for cystoscopy/stent pending OR availability. Barbara feels her pain is improved from an 8 to a 5 after analgesics and her nausea is improved following Phenergan, but she continues to have achy 5/10 pa in. She has felt fevered and flushed chest since this morning. Endorses hematuria and small voids, but no burning with urination. Endorses nausea. No chest pain, chest pressure, lightheadedness, dizziness. No melena or bright red blood per rectum. Did recently have a precancerous polyp removed by colonoscopy which was otherwise unremarkable. She reports she takes no chronic medications, and other than her relatively asymptomatic Crohn's intermittent kidney stones has no other medical history. Denies antibiotic allergies, hives to sertraline and nickel as noted. Denies current alcohol/tobacco use. Full code. Admission Exam Per Admitting Provider General: A&Ox3. NAD. Cooperative. Appears uncomfortable but nontoxic HEENT: Atraumatic, normocephalic. Vision and hearing grossly intact Pulm: CTAB A&P. -wheezes, -rales, -rhonchi. Symmetrical chest rise. No increased work of breathing. No respiratory distress. Cardiac: RRR, -mrg. Radial pulses intact and symmetrical. Abdominal: mild LLQ TTP with radiation to L flank. Abd soft, no rebound, no guarding, no rigidity. Ext: warn, dry. Principal Diagnosis Ureteric Calculus , hydronephrosis Discharge Exam Constitutional WD/WN, vitals as above ENMT external ear and nose normal, oropharynx normal Neck trachea midline, no thyromegaly Respiratory normal respiratory effort, lungs clear to auscultation Cardiovascular RRR, no murmur, no edema Rate/Rhythm: regular rate and regular rhythm Gastrointestinal (Abdomen) normal bowel sounds, soft, nontender, no hepatosplenomegaly Left back pain/ CVA tenderness Discharge Data Allergies Allergy/AdvReac Type Severity Reaction Status Date / Time Citalopram Analogues Allergy Intermediate hives Verified 05/09/22 08:12 nickel Allergy Mild Rash Verified 05/09/22 08:12 sertraline Allergy Mild hives Verified 05/09/22 08:12 Consultations 09/06/22 10:18 ED Decision to Admit Stat 09/06/22 11:25 Consult Urology Stat Procedures Performed Operation Date: 09/06/22 16:30 Actual Procedures p Cystoscopy Left Stent Placement(Left) - Shamir Carroll MD Ordered Studies 09/06/22 [place] retrograde includes kub Routine 09/06/22 08:27 CT abd pelvis wo con Stat Hospital Course (1) Calculus of proximal left ureter: Plan Barbara is a 32-year-old female the past medical history of Crohn's, Asthma, PCOS, Depression with anxiety, recurren kidney stones . Here due to 1 months of left plank pain which worsened associated with hematuria, nausea, small voids but no burning with urination. Calculus of Proximal L Ureter with hydronephrosis - Presented with 8 mm L Proximal Ureter Stone - Surgically managed by Urology 09/06/22 with Cystoscopy, left retrograde pyelogram, Left Stent Placement - Patient tolerated procedure well, no complications - Important labs after procedure Creatine 0.72, BUN 9 mg/dl, Na: 138, K: 4.2, Hgb 11.0 g/dl - Pain control with Percocet and ibuprofen prn - Antibiotic prophylaxis w/ Ceftriaxone Discharged home -- - Recommend continuing Tamsulosin and Pyridium, Oxybutynin - Recommended continue pain analgesic with ibuprofen prn - Recommend continue PO antibiotics with Cefdinir 300 mg BID - Recommend Antiemetics with Zofran 4 mg prn - Recommend follow up with PCP in 1 week - Recommend follow up with urology on Saturday Diet: Regular Code: Full Isolation: None Disposition: Home w/ self care Total Time Total Time Spent Total Time Spent (In Minutes): See attending attestation Discharge Plan Discharge Items Patient Disposition: Home - Self-Care Reason For Visit: 8MM STONE + HYDRO + UTI Discharge Diagnosis: Nephrolithiasis Condition on Discharge: Fair Activity: Per Instructions section Non-emergency contact: Primary Care Provider and Urologist Call non-emergency contact if: you have any medication questions and your pain is not controlled Follow-up/Referrals: Barbara Carreon CRNP [Primary Care Provider] - Scott Smith MD [Physician] - Diet: Regular Addtl Attending Provider Instructions: You were admitted to the hospital for evaluation of left sided flank pain. You were found to have a large (8mm) kidney stone in your left ureter as well as hydroureteroneprhosis (swelling of the ureter and kidney). Because of this, urology recommended the removal of the stone and stent placement. You will continue to follow up outside of the hospital with Urology. Please continue taking your antibiotic, Oxybutynin, Flomax, and Pyridium after discharge from the hospital. Recommendations: - Continue taking Cefdinir 300 mg twice daily for 5 days -Continue Oxybutynin 5 mg three times a day for 5 days -Continue with Flomax 0.4 mg daily for 5 days -Continue Pyridium 200 mg three times for 5 days - Follow up with Urology outpatient within 1 week -Follow up with PCP Pending Studies at Discharge: No Stand-Alone Forms: My [facility] Kids Calendar, Smoking Cessation Medications and DC Order Prescriptions: New phenazopyridine [Pyridium] 200 mg Tablet 200 mg PO TID PRN (Reason: pain) 7 Days Qty: 20 0RF oxybutynin chloride 5 mg Tablet 5 mg PO TID PRN (Reason: bladder spasms) 7 Days Qty: 21 0RF cefdinir 300 mg capsule 300 mg PO BID 5 Days Qty: 10 0RF ondansetron HCl 4 mg tablet 4 mg PO BID PRN (Reason: nausea and vomiting) Qty: 14 0RF tamsulosin [Flomax] 0.4 mg capsule 0.4 mg PO DAILY 7 Days Qty: 7 0RF oxycodone 5 mg tablet 5 mg PO BID PRN (Reason: pain) Qty: 5 0RF Continued Hair, Skin and Nails (biotin) 10,000 mcg Tablet,Chewable 10,000 mcg PO QAM albuterol sulfate 90 mcg/actuation Hfa Aerosol Inhaler 1 inh INHALATION QID PRN (Reason: SHORT OF BREATH) Rx Instructions: Patient stated it has been a year since she last had to use her inhaler- but she keeps it on hand. Discharge Orders: Discharge Order (Routine); Ordered 09/08/22 Ordered By: Gloria Valdez Admission Data Admit Date/Time: 09/06/22 12:05 Attending Provider: Sarahi Wilson Admit Provider: Sage Villanueva Primary Care Provider: Barbara Carreon Other Providers: Sage Villanueva ; Scott Smith ; Odilon Palacio Other Interventions: Discharge Summary Assessment (RN) Last Done: 09/08/22 13:52 Supervising Physician Co-Signing Physician Notes Resident Physician Supervision Note: I independently interviewed and examined the patient and verified the real history and physical, reviewed labs and image studies and agree with resident findings and care plan. Resident Activity Tracking Resident Involvement: Resident Care Provided Care Provided: Adult Hospital Medicine
--- NOTE | 2022-09-13 12:01 | Coding Query ---
CODING QUERY To promote full compliance with coding requirements relating to patient care, provider participation is requested in all cases of plastic dolls mold filler uncertainty. Please assist us with the question(s) below: Coding Question(s): The 09/07 Hospitalist Progress Note documents, "Still feeling a good bit of painfairly intolerable whenever she voids, definitely does not feel like she be okay at home yet. Vitals noted, in general she is awake and alert pleasant. Breathing unlabored no accessory muscle use good effort. Skin shows no rashes no pallor or icterus. Neuro without focal deficits. Ureteral colicprobably stent relatedgive time, hopefully should improve, if not may need urology to reevaluate. Continue symptomatic control at this time", and the 09/07 Urology Progress Note documents, "- Difficult night due to stent discomfort, better this morning - Added Flomax, prn Pyridium and Oxybutynin for stent management". Please specify below, in your clinical opinion, regarding the Pain/stent discomfort. ( ) Pain/Stent discomfort is a complication due ureteral stent (x ) Pain/Stent discomfort is not a complication due to ureteral stent Physician's Response(s): Thank you Ashleigh Thompson Principal Diagnosis: "that condition established after study, to be chiefly responsible for occasioning the admission of the patient to the hospital for care." Co-Existing Principal Diagnosis: "when two or more diagnoses equally meet the criteria for principal diagnosis as determined by the circumstances of admission, diagnostic work up, and/or therapy provided, and the Alphabetic Index, Tabular List, or another coding guideline does not provide sequencing direction, any one of the diagnoses may be sequenced first." "When the physician has documented what appears to be a current diagnosis in the body of the record, but has not included the diagnosis in the final diagnostic statement, the physician should be asked whether the diagnosis should be added." (Source Coding Clinic 2 QTR90. p3-4) CHRISTIE
== END 2022-09-08 14:29 | disposition home or self-care (01) | DRG 660 ==
LOC: ED 08:06 → SUATTDRO 12:05 → 3W 12:05
DX: N13.6 Pyonephrosis; Z87.442 Personal history of urinary calculi; J45.909 Unspecified asthma, uncomplicated; Z87.891 Personal history of nicotine dependence; E66.9 Obesity, unspecified; K50.90 Crohn's disease, unspecified, without complications; Z68.41 Body mass index [BMI] 40.0-44.9, adult; Z88.8 Allergy status to other drugs, medicaments and biological substances; N23 Unspecified renal colic; Z91.048 Other nonmedicinal substance allergy status